=== PATIENT | male | born 1960 | race Caucasian/White ===

== ENCOUNTER 2016-08-04 03:10 | Emergency (ER) | payer BC, OTHER ==
[~2016-08-04 03:10] MED LIST: TRIAM.1%T TOPICAL
--- NOTE | 2016-08-04 03:39 | PD ---
HPI Chief Complaint: Alcohol intoxication Time Seen by Provider: 03:22 Travel History International Travel<30 days: No Contact w/Intl Traveler<30days: No History of Present Illness HPI 56yo M with PMH of hep C brought in by [facility] for alcohol intoxication and has a avulsion laceration above left eyebrow. Pt is answering questions and following commands but clinically intoxicated. Denies any complaints. Has abrasion on right knee. States he had recent tetanus. Moving all extremities. No focal neurologic deficits. PFSH Past Medical History Hx Anticoagulant Therapy: No Cancer: No Cardiovascular Problems: No Chemotherapy: No Cerebrovascular Accident: No Diabetes: No Diminished Hearing: No Endocrine: Yes Genitourinary: No Musculoskeletal: No Neurologic: No Psychiatric: No Reproductive: No Respiratory: No Thyroid Disease: Yes Past Surgical History Other Surgery: Yes (SINUS SURGERY) Social History Alcohol Use: Yes (FREQUENTLY ) Tobacco Use: Yes (1PPD) Substance Use: No Allergies-Medications (Allergen,Severity, Reaction): Coded Allergies: *MDRO Multi-Drug Resistant Organism (Verified Adverse Reaction, Unknown, ) MRSA (per H&P) MRSA PCR negative 02/02/2015 & 02/05/2015. Isolation D/C per Infection Control protocol Reported Meds & Prescriptions Reported Meds & Active Scripts Active Review of Systems Except as stated in HPI: all other systems reviewed are Neg Physical Exam Narrative GENERAL: 56yo M intoxicated. SKIN: Focused skin assessment warm/dry. HEAD: +4cm avulsion laceration above left eyebrow. EYES: Pupils equal and round at 4mm bilaterally. EOMI. ENT: No nasal bleeding or discharge. Mucous membranes pink and moist. NECK: Trachea midline. No JVD. CARDIOVASCULAR: Regular rate and rhythm. No murmur appreciated. RESPIRATORY: No accessory muscle use. Clear to auscultation. Breath sounds equal bilaterally. GASTROINTESTINAL: Abdomen soft, non-tender, nondistended. No rebound tenderness or guarding. MUSCULOSKELETAL: No obvious deformities. No clubbing. No cyanosis. No edema. NEUROLOGICAL: Awake and alert. No obvious cranial nerve deficits. Motor grossly within normal limits. Normal speech. Data Data Last Documented VS Vital Signs Date Time Temp Pulse Resp B/P Pulse Ox O2 Delivery O2 Flow Rate FiO2 08/04/16 08:11 92 18 134/79 98 Room Air 08/04/16 03:[address] Brain W/O Iv Contrast(Rout) (08/04/16 ) Knee, Ltd (1 Or 2vws) (08/04/16 ) Lidocaine 1% Inj (50 Ml) (Xylocaine 1% I (08/04/16 04:15) Acetaminophen (Tylenol) (08/04/16 06:15) MDM Medical Decision Making Medical Screen Exam Complete: Yes Emergency Medical Condition: Yes Interpretation(s) Last Impressions Knee X-Ray 08/04/16 0000 Signed Impressions: Service Date/Time: Thursday, August 04, 2016 03:25 - CONCLUSION: No acute right knee abnormality is identified. Germán Odom MD Head CT 08/04/16 0000 Signed Impressions: Service Date/Time: Thursday, August 04, 2016 03:44 - CONCLUSION: Mild left periorbital soft tissue swelling. No fracture or acute intracranial abnormality is identified. Germán Odom MD Differential Diagnosis Alcohol intoxication Narrative Course 56yo M with alcohol intoxication and left forearm laceration. Pt is answering questions and admits to drinking today. No focal neurologic deficits. CT brain showed mild left periorbital soft tissue swelling. No fracture or acute intracranial abnormality. Laceration repaired by my PA. Xray right knee showed no acute knee abnormality. Pt is medically clear to be discharge when ambulating in the ED without any assistance. Diagnosis Primary Impression: Head injury Qualified Code: S09.90XA - Head injury, initial encounter Patient Instructions: General Instructions Departure Forms: Tests/Procedures Additional Instructions: Please have sutures removed in 5 days. Please follow up with your PMD. Return to the ED if any signs of infection, headache, vomiting or any other concerning symptoms. Med/Other Pt SpecificInfo: No Change to Meds Disposition: 01 DISCHARGE HOME Condition: Stable Anabelle Pitts DO Aug 04, 2016 03:39
[2016-08-04 03:40] VITALS: BP 159/106; PULSE 97; RESP 18; TEMP 98.9; O2SAT 97
--- NOTE | 2016-08-04 04:05 | RADRPT ---
EXAM DATE/TIME: 08/04/2016 03:25 [facility] COMPARISON: No previous studies available for comparison. INDICATIONS : Possible knee trauma from a fall. MEDICAL HISTORY : None. SURGICAL HISTORY : None. ENCOUNTER: Initial ACUITY: 1 day PAIN SCORE: 10 LOCATION: Right Knee FINDINGS: Four views of the right knee demonstrate no fracture or dislocation. No joint effusion is present. Th ere is no significant arthropathy and mineralization is within normal limits. No soft tissue abnormal ity or radiopaque foreign body is identified. There is arterial vascular calcification. CONCLUSION: No acute right knee abnormality is identified. Germán Odom MD on August 04, 2016 at 4:03 Board Certified Radiologist. This report was verified electronically.
--- NOTE | 2016-08-04 04:13 | RADRPT ---
EXAM DATE/TIME: 08/04/2016 03:44 [facility] COMPARISON: No previous studies available for comparison. INDICATIONS : Trauma, fall. RADIATION DOSE: 56.35 CTDIvol (mGy) MEDICAL HISTORY : Non-responsive. SURGICAL HISTORY : Non-responsive. ENCOUNTER: Initial ACUITY: 1 day PAIN SCALE: Non-responsive LOCATION: cranial TECHNIQUE: Multiple contiguous axial images were obtained of the head. Using automated exposure control and adj ustment of the mA and/or kV according to patient size, radiation dose was kept as low as reasonably a chievable to obtain optimal diagnostic quality images. FINDINGS: CEREBRUM: The ventricles are normal. There is mild cerebral atrophy. No evidence of midline shift, mass lesion , hemorrhage or acute infarction. No extra-axial fluid collections are seen. POSTERIOR FOSSA: The cerebellum and brainstem demonstrate no acute finding. The 4th ventricle is midline. The cerebe llopontine angle is unremarkable. EXTRACRANIAL: There is left periorbital soft tissue swelling. SKULL: The calvaria is intact. No evidence of skull fracture. CONCLUSION: Mild left periorbital soft tissue swelling. No fracture or acute intracranial abnormality is identifi ed. Germán Odom MD on August 04, 2016 at 4:10 Board Certified Radiologist. This report was verified electronically.
[2016-08-04] MEDS ORDERED: LIDOCAINE HCL 1% 50 ML VIAL INFIL ONE (04:15)
--- NOTE | 2016-08-04 04:34 | PD ---
Physical Exam Exam Limitations: Intoxication Date Seen by Provider: Aug 04, 2016 Time Seen by Provider: 04:32 Narrative 4 cm laceration left eyebrow Data Data Last Documented VS Vital Signs Date Time Temp Pulse Resp B/P Pulse Ox O2 Delivery O2 Flow Rate FiO2 08/04/16 03:40 98.9 97 18 159/[address] Brain W/O Iv Contrast(Rout) (08/04/16 ) Knee, Ltd (1 Or 2vws) (08/04/16 ) Lidocaine 1% Inj (50 Ml) (Xylocaine 1% I (08/04/16 04:15) MDM Medical Record Reviewed: Yes Supervised Visit with MICHELLE: Yes Interpretation(s) Last 24 hours Impressions Knee X-Ray 08/04/16 0000 Signed Impressions: Service Date/Time: Thursday, August 04, 2016 03:25 - CONCLUSION: No acute right knee abnormality is identified. Germán Odom MD Head CT 08/04/16 0000 Signed Impressions: Service Date/Time: Thursday, August 04, 2016 03:44 - CONCLUSION: Mild left periorbital soft tissue swelling. No fracture or acute intracranial abnormality is identified. Germán Odom MD Differential Diagnosis MDM: High Differential diagnoses: Fracture, sprain, strain, dislocation, contusion, neurovascular injury Narrative Course Patient's facial lacerations closed with sutures. Procedures Procedure Narrative LACERATION LOCATION: Left eyebrow LENGTH: 4 cm NUMBER OF STITCHES/CARLITA: 7 REPAIR: The area of the laceration was prepped with Betadine and sterilely draped. The laceration was infiltrated with 1% lidocaine. The wound was copiously irrigated and explored without evidence of foreign body, tendon injury or neurovascular injury. The wound was closed using 5-0 nylon. This was a simple single layer repair. A sterile dressing was applied. The patient was advised to keep the dressing clean and dry. Patient tolerated the procedure well. Patient Instructions: General Instructions Additional Instruction: Rest. Ice pack tonight. Head precautions. Avoid alcohol. Tylenol or Advil for pain. Daily wound care with soap, water, Neosporin. Sutures out in 5 days. Sunscreen and mederma for 6 months. Return to the ER for any problems. Med/Other Pt SpecificInfo: Wound Care Disposition: 01 DISCHARGE HOME Condition: Stable Joseph Howard Aug 04, 2016 04:34
[2016-08-04] MEDS ORDERED: ACETAMINOPHEN 500 MG CPLT PO ONE (06:15)
[2016-08-04 08:11] VITALS: BP 134/79; PULSE 92; RESP 18; O2SAT 98
[2016-08-21] MEDS ORDERED: BACT800T5 PO (14:34)
[2016-09-06] MEDS ORDERED: TRIAPOW TOPICAL ×2 (14:52→15:15)
== END 2016-08-04 10:05 | disposition home or self-care (01) ==
LOC: NEPE 03:10
DX: S01.81XA Laceration without foreign body of other part of head, initial encounter (principal); F17.210 Nicotine dependence, cigarettes, uncomplicated; F10.120 Alcohol abuse with intoxication, uncomplicated; Y90.9 Presence of alcohol in blood, level not specified
CPT/HCPCS: 12013; 70450; 73560

== ENCOUNTER 2016-10-21 18:41 | Inpatient (IN) | payer BC, OTHER ==
[~2016-10-21] VITALS: Ht 180.3 cm; Wt 76.8 kg
[~2016-10-21 18:41] MED LIST changes: -TRIAM.1%T TOPICAL; +TRIAPOW TOPICAL
[2016-10-21 18:47] VITALS: BP 121/98; PULSE 108; RESP 18; O2SAT 97
[2016-10-21] MEDS ORDERED: SODIUM CHLOR 0.9% 1000 ML INJ 1,000 ML IV SCH ×2 (18:54→20:46)
--- NOTE | 2016-10-21 18:54 | PD ---
HPI Chief Complaint: GI Complaint Time Seen by Provider: 18:54 Travel History International Travel<30 days: No Contact w/Intl Traveler<30days: No Traveled to known affect area: No History of Present Illness HPI 56-year-old male with a history of pancreatitis, alcohol abuse, hypothyroidism is brought to the emergency department by EMS for evaluation of epigastric pain with nausea and vomiting. Per EMS [place] he is homeless. Patient states that this pain began several hours ago. States that it began while he was sitting at the bar drinking beer. States he has had multiple episodes of nonbloody nonbilious emesis today and multiple episodes of nonbloody diarrhea. He describes the pain as a sharp stabbing pain in his epigastric and lower sternum. Denies any fever, chills, shortness of breath, difficulty breathing, cough or cold symptoms , dysuria, swelling of extremities. Denies any prior abdominal surgeries. States that he has had pancreatitis in the past. Denies any history of heart disease or CT. States he has had 2 beers today. No other complaints. PFSH Past Medical History Hx Anticoagulant Therapy: No Cancer: No Cardiovascular Problems: No Chemotherapy: No Cerebrovascular Accident: No Diabetes: No Diminished Hearing: No Endocrine: Yes Gastrointestinal Disorders: Yes Genitourinary: No Musculoskeletal: No Neurologic: No Psychiatric: No Reproductive: No Respiratory: No Thyroid Disease: Yes Past Surgical History Genitourinary Surgery: Yes (VASECTOMY) Other Surgery: Yes (SINUS SURGERY) Social History Alcohol Use: Yes (FREQUENTLY ) Tobacco Use: Yes (1PPD) Substance Use: No Allergies-Medications (Allergen,Severity, Reaction): Coded Allergies: *MDRO Multi-Drug Resistant Organism (Verified Adverse Reaction, Unknown, ) MRSA (per H&P) MRSA PCR negative 02/02/2015 & 02/05/2015. MRSA (arm)-08/21/16 Reported Meds & Prescriptions Reported Meds & Active Scripts Active No Active Prescriptions or Reported Medications Review of Systems Except as stated in HPI: all other systems reviewed are Neg Physical Exam Narrative GENERAL: Disheveled male patient in moderate amount of pain but no acute distress. SKIN: Warm and dry. HEAD: Normocephalic and atraumatic. EYES: No injection, drainage, or hyphema noted. PERRLA. EOMI. ENT: No nasal drainage noted. Oropharynx is clear. NECK: Supple and the trachea is midline. CARDIOVASCULAR: Regular rate and rhythm. RESPIRATORY: Breath sounds are equal bilaterally with no accessory muscle use, wheezing, rhonchi, or crackles. GASTROINTESTINAL: Epigastric tenderness to palpation. Negative Young's sign. Negative McBurney's point. Abdomen is soft and nondistended. MUSCULOSKELETAL: No obvious deformities, swelling, cyanosis, or ecchymosis is present throughout the upper and lower extremities. Patient has full range of motion without any signs of neurovascular compromise. NEUROLOGICAL: Awake, alert, and oriented. Normal speech and gait. Cranial nerves are grossly intact. Data Data Last Documented VS Vital Signs Date Time Temp Pulse Resp B/P Pulse Ox O2 Delivery O2 Flow Rate FiO2 10/21/16 21:14 96 18 156/99 96 Room Air Orders Complete Blood Count With Diff (10/21/16 18:54) Comprehensive Metabolic Panel (10/21/16 18:54) Lipase (10/21/16 18:54) Prothrombin Time / Inr (Pt) (10/21/16 18:54) Act Partial Throm Time (Ptt) (10/21/16 18:54) Urinalysis - C+S If Indicated (10/21/16 18:54) Iv Access Insert/Monitor (10/21/16 18:54) Ecg Monitoring (10/21/16 18:54) Oximetry (10/21/16 18:54) Ondansetron Inj (Zofran Inj) (10/21/16 19:00) Sodium Chlor 0.9% 1000 Ml Inj (Ns 1000 M (10/21/16 18:54) Sodium Chloride 0.9% Flush (Ns Flush) (10/21/16 19:00) Electrocardiogram (10/21/16 18:54) Chest, Single Ap (10/21/16 18:54) Famotidine Inj (Pepcid Inj) (10/21/16 19:00) Ckmb (Isoenzyme) Profile (10/21/16 18:54) Troponin I (10/21/16 18:54) Alcohol (Ethanol) (10/21/16 18:54) Morphine Inj (Morphine Inj) (10/21/16 19:00) Ct Abd/Pel W Iv Contrast(Rout) (10/21/16 20:46) Sodium Chlor 0.9% 1000 Ml Inj (Ns 1000 M (10/21/16 20:46) Electrocardiogram (10/21/16 19:31) Iohexol 350 Inj (Omnipaque 350 Inj) (10/21/16 21:30) Morphine Inj (Morphine Inj) (10/21/16 22:15) Ondansetron Inj (Zofran Inj) (10/21/16 22:15) Piperacil-Tazo 4.5 Gm Premix (Zosyn 4.5 (10/21/16 22:30) Admit Order (Ed Use Only) (10/21/16 22:30) Piperacil-Tazo 4.5 Gm Premix (Zosyn 4.5 (10/22/16 05:00) Admit To Inpatient (10/21/16 ) Vital Signs (Adult) Q4H (10/21/16 22:33) Activity Oob Ad Enedina (10/21/16 22:33) Intake + Output RAYMOND.QSHIFT (10/21/16 22:33) Diet Clear Liquid (10/22/16 Breakfast) Sodium Chloride 0.9% Flush (Ns Flush) (10/21/16 22:45) Sodium Chloride 0.9% Flush (Ns Flush) (10/22/16 09:00) Ondansetron Inj (Zofran Inj) (10/21/16 22:45) Comprehensive Metabolic Panel (10/22/16 06:00) Complete Blood Count With Diff (10/22/16 06:00) Lipase (10/22/16 06:00) Scd Bilateral/Knee High RAYMOND.BID (10/21/16 22:33) Abdon Bilateral/Knee High RAYMOND.QSHIFT (10/21/16 22:33) Acetaminophen (Tylenol) (10/21/16 22:45) Morphine Inj (Morphine Inj) (10/21/16 22:45) Oxycodone (Roxicodone) (10/21/16 22:45) Docusate Sodium-Senna (Yoko-Colace) (10/22/16 09:00) Magnesium Hydroxide Liq (Milk Of Magnesi (10/21/16 22:45) Sennosides (Senokot) (10/21/16 22:45) Bisacodyl Supp (Dulcolax Supp) (10/21/16 22:45) Lactulose Liq (Lactulose Liq) (10/21/16 22:45) Inpatient Certification (10/21/16 ) Vital Signs (Adult) Q4H (10/21/16 22:33) Bedside Glucose RAYMOND.AC&HS (10/21/16 22:33) Intake + Output RAYMOND.QSHIFT (10/21/16 22:33) Alcohol Withdrawal Asmt-Ciwa Q4HX18 (10/21/16 22:33) ^ Seizure Precautions (10/21/16 22:33) Multivitamin Inj (Mvi-12 Inj)... (10/21/16 22:45) Thiamine Inj (Thiamine Inj) (10/21/16 22:45) Thiamine (Vit B1) (Vitamin B1) (10/25/16 09:00) Consult Cm-Etoh Abuse Dc Plan (10/21/16 ) Flumazenil Inj (Romazicon Inj) (10/21/16 22:45) Lorazepam (Ativan) (10/21/16 22:45) Lorazepam Inj (Ativan Inj) (10/21/16 22:45) Lorazepam (Ativan) (10/21/16 22:45) Lorazepam Inj (Ativan Inj) (10/21/16 22:45) Labs Laboratory Tests Test 10/21/16 10/21/16 19:01 19:15 White Blood Count 7.8 TH/MM3 Red Blood Count 4.14 MIL/MM3 Hemoglobin 14.1 GM/DL Hematocrit 39.3 % Mean Corpuscular Volume 94.7 FL Mean Corpuscular Hemoglobin 34.1 PG Mean Corpuscular Hemoglobin 36.0 % Concent Red Cell Distribution Width 15.9 % Platelet Count 160 TH/MM3 Mean Platelet Volume 6.4 FL Neutrophils (%) (Auto) 64.8 % Lymphocytes (%) (Auto) 19.2 % Monocytes (%) (Auto) 13.0 % Eosinophils (%) (Auto) 2.5 % Basophils (%) (Auto) 0.5 % Neutrophils # (Auto) 5.1 TH/MM3 Lymphocytes # (Auto) 1.5 TH/MM3 Monocytes # (Auto) 1.0 TH/MM3 Eosinophils # (Auto) 0.2 TH/MM3 Basophils # (Auto) 0.0 TH/MM3 CBC Comment AUTO DIFF Differential Total Cells 100 Counted Neutrophils % (Manual) 70 % Band Neutrophils % 8 % Lymphocytes % 15 % Monocytes % 4 % Eosinophils % 2 % Basophils % 1 % Neutrophils # (Manual) 6.1 TH/MM3 Nucleated Red Blood Cells 1 /100 WBC Differential Comment FINAL DIFF MANUAL Platelet Estimate NORMAL Platelet Morphology Comment NORMAL Red Cell Morphology Comment NORMAL Prothrombin Time 11.6 SEC Prothromb Time International 1.0 RATIO Ratio Activated Partial 26.6 SEC Thromboplast Time Sodium Level 135 MEQ/L Potassium Level 3.9 MEQ/L Chloride Level 101 MEQ/L Carbon Dioxide Level 21.1 MEQ/L Anion Gap 13 MEQ/L Blood Urea Nitrogen 6 MG/DL Creatinine 0.74 MG/DL Estimat Glomerular Filtration 110 ML/MIN Rate Random Glucose 77 MG/DL Calcium Level 8.9 MG/DL Total Bilirubin 0.9 MG/DL Aspartate Amino Transf 112 U/L (AST/SGOT) Alanine Aminotransferase 124 U/L (ALT/SGPT) Alkaline Phosphatase 60 U/L Total Creatine Kinase 75 U/L Troponin I LESS THAN 0.02 NG/ML Total Protein 8.2 GM/DL Albumin 3.7 GM/DL Lipase 665 U/L Ethyl Alcohol Level 324 MG/DL Urine Color LIGHT-YELLOW Urine Turbidity CLEAR Urine pH 5.0 Urine Specific [place] 1.003 Urine Protein NEG mg/dL Urine Glucose (UA) NEG mg/dL Urine Ketones NEG mg/dL Urine Occult Blood NEG Urine Nitrite NEG Urine Bilirubin NEG Urine Urobilinogen LESS THAN 2.0 MG/DL Urine Leukocyte Esterase NEG Microscopic Urinalysis Comment CULT NOT INDICATED MDM Medical Decision Making Medical Screen Exam Complete: Yes Emergency Medical Condition: Yes Differential Diagnosis Gastritis versus pancreatitis versus peptic ulcer disease versus alcohol intoxication versus chest wall pain versus ACS Narrative Course 56-year-old male is brought to the emergency department by EMS for evaluation of epigastric pain with nausea and vomiting. Patient is afebrile. He is slightly tachycardic with a heart rate of 108 bpm. Otherwise vital signs within normal limits. He has epigastric tenderness to palpation. He is a daily alcohol drinker. IV access was obtained, labs have been drawn and sent. Patient is placed on cardiac telemetry and pulse oximetry monitoring. Patient is administered IV fluids, Zofran, Pepcid and morphine. EKG shows normal sinus rhythm with no acute ST elevations or depressions. CBC is unremarkable with the exception of 8% band neutrophils. CMP shows elevated LFTs, likely secondary to chronic alcohol use. Troponin is less than 0.02. Lipases elevated at 665. Coags are unremarkable. EtOH 324. Urinalysis is unremarkable. Chest x-ray is unremarkable. CT of the abdomen and pelvis with IV contrast shows mild inflammatory changes involving the pancreatic head, second portion of the duodenum and the pancreaticoduodenal groove. These findings can be seen with groove pancreatitis or potentially duodenitis. Patient is covered empirically with Zosyn 4.5 g IV for possible infectious source with bandemia. Patient is still complaining of abdominal pain. He is given a second dose of pain medicine and antiemetics. He'll be admitted to medicine service for abdominal pain for acute pancreatitis and duodenitis. I discussed the case with my attending physician Dr. Pearson who is aware of the patients history, physical examination findings, and treatment plan. Physician Communication Physician Communication I spoke with Dr. Huerta [facility] who agrees to admit the patient to her service. Diagnosis Primary Impression: Alcoholic pancreatitis Qualified Code: K85.20 - Alcohol-induced acute pancreatitis, unspecified complication status Additional Impressions: Abdominal pain Qualified Code: R10.84 - Generalized abdominal pain Nausea & vomiting Qualified Code: R11.2 - Non-intractable vomiting with nausea, unspecified vomiting type Bandemia Admitting Information Admitting Physician Requests: Admit Scripts No Active Prescriptions or Reported Meds Lisa Luo Oct 21, 2016 18:54
[2016-10-21] MEDS ORDERED: MORPHINE SULFATE 4 MG/ML INJ IV PUSH ONE ×2 (19:00→22:15)
[2016-10-21] MEDS ORDERED: FAMOTIDINE 20 MG/2 ML VIAL IV PUSH ONE (19:00)
[2016-10-21] MEDS ORDERED: ONDANSETRON HCL 4 MG/2 ML VIAL IVP ONE (19:00)
[2016-10-21] MEDS ORDERED: SODIUM CHLORIDE 0.9% FLUSH 10 ML FLUSH IV FLUSH PRN (19:00)
[2016-10-21 19:18] VITALS: BP 120/88; PULSE 98; RESP 22; O2SAT 100
[2016-10-21 19:38] LABS: AUTOMATED NEUTROPHIL # 5.1 TH/MM3 (1.8-7.7); BASOPHIL % 0.5 % (0.0-2.0); EOSINOPHIL # 0.2 TH/MM3 (0-0.4); EOSINOPHIL % 2.5 % (0.0-4.0); HEMATOCRIT 39.3 % (39.0-51.0); LYMPH % 19.2 % (9.0-44.0); LYMPHOCYTE # 1.5 TH/MM3 (1.0-4.8); MEAN CELL VOLUME 94.7 FL (80.0-100.0); MEAN CORPUSCULAR HEMOGLOBIN 34.1 PG (27.0-34.0); NEUT % 64.8 % (16.0-70.0); PLATELET COUNT 160 TH/MM3 (150-450); RED BLOOD COUNT 4.14 MIL/MM3 (4.50-5.90); RED CELL DISTRIBUTION WIDTH 15.9 % (11.6-17.2); WHITE BLOOD COUNT 7.8 TH/MM3 (4.0-11.0)
[2016-10-21 19:39] LABS: HEMO FLAGS AUTO DIFF
--- NOTE | 2016-10-21 19:40 | RADRPT ---
EXAM DATE/TIME: 10/21/2016 19:10 [facility] COMPARISON: CHEST PA & LAT, January 27, 2015, 20:12. INDICATIONS : Lower Chest Pain MEDICAL HISTORY : None. SURGICAL HISTORY : None. ENCOUNTER: Initial ACUITY: 1 day PAIN SCORE: 10/10 LOCATION: Bilateral lower chest FINDINGS: Portable AP view of the chest demonstrates a normal-sized cardiac silhouette. No effusion, consolidat ion, or pneumothorax is visualized. The bones and soft tissues demonstrate no acute abnormality. Lung s are underinflated. CONCLUSION: No acute cardiopulmonary abnormality is identified. Germán Odom MD on October 21, 2016 at 19:38 Board Certified Radiologist. This report was verified electronically.
[2016-10-21 19:48] LABS: ALT (GPT) 124 U/L (12-78); ANION GAP 13 MEQ/L (5-15); AST (GOT) 112 U/L (15-37); BICARBONATE 21.1 MEQ/L (21.0-32.0); BLOOD UREA NITROGEN 6 MG/DL (7-18); CHLORIDE 101 MEQ/L (98-107); GLOMERULAR FILTRATION RATE 110 ML/MIN (>89); POTASSIUM 3.9 MEQ/L (3.5-5.1); SODIUM (NA) 135 MEQ/L (136-145)
[2016-10-21 19:50] LABS: APTT (PATIENT) 26.6 SEC (24.3-30.1); PROTHROMBIN TIME - PATIENT 11.6 SEC (9.8-11.6)
[2016-10-21 19:52] LABS: BLOOD, URINE NEG (NEG); COMMENT (UR) CULT NOT INDICATED; CULTURE IF INDICATED CULT NOT INDICATED; GLUCOSE,URINE NEG (NEG); KETONE, URINE NEG (NEG); NITRITE,URINE NEG (NEG); URINE COLOR LIGHT-YELLOW (YELLW/STRAW)
[2016-10-21 19:55] LABS: ALKALINE PHOSPHATASE 60 U/L (45-117); TOTAL BILIRUBIN ADULT 0.9 MG/DL (0.2-1.0)
[2016-10-21 19:59] LABS: CREATINE KINASE 75 U/L (39-308)
[2016-10-21 20:15] LABS: BANDS 8 % (0-6); BASOPHILS 1 % (0-2); CORRECTED NUCLEATED RBC 1 /100 WBC (0-0); EOSINOPHILS 2 % (0-4); NEUTROPHIL # MANUAL DIFF 6.1 TH/MM3 (1.8-7.7); PLATELET ESTIMATE SMEAR NORMAL (NORMAL); PLATELET MORPHOLOGY NORMAL (NORMAL); POLYS (SEG NEUTROPHILS) 70 % (16-70); SCAN/DIFF FINAL DIFF MANUAL; WBC DIFF SAMPLE 100
[2016-10-21 21:14] VITALS: BP 156/99; PULSE 96; RESP 18; O2SAT 96
[2016-10-21] MEDS ORDERED: IOHEXOL 350 MG/ML 10 ML VIAL (for RAD DIAG) IV ONE (21:30)
--- NOTE | 2016-10-21 22:03 | RADRPT ---
EXAM DATE/TIME: 10/21/2016 21:27 [facility] COMPARISON: No previous studies available for comparison. INDICATIONS : Epigastric pain with nausea and vomiting. ETOH. IV CONTRAST: 97 cc Omnipaque 350 (iohexol) IV ORAL CONTRAST: No oral contrast ingested. RADIATION DOSE: 9.96 CTDIvol (mGy) MEDICAL HISTORY : Pancreatitis. Thyroid disease. SURGICAL HISTORY : Sinus surgery. ENCOUNTER: Initial ACUITY: 1 day PAIN SCALE: 8/10 LOCATION: epigastric TECHNIQUE: Volumetric scanning of the abdomen and pelvis was performed. Using automated exposure control and ad justment of the mA and/or kV according to patient size, radiation dose was kept as low as reasonably achievable to obtain optimal diagnostic quality images. FINDINGS: LOWER LUNGS: The visualized lower lungs are clear. LIVER: Homogeneous density without lesion. There is no dilation of the biliary tree. No calcified gallston es. SPLEEN: Normal size without lesion. PANCREAS: There is mild stranding of the fat between the second portion of the duodenum and pancreatic head. No pancreatic mass, duct dilatation, or atrophy is present. There are no pancreatic calcifications. KIDNEYS: Normal in size and shape. There is no mass, stone or hydronephrosis. ADRENAL GLANDS: Within normal limits. VASCULAR: There is no aortic aneurysm. There is mild atherosclerotic disease. BOWEL/MESENTERY: The stomach, small bowel, and colon demonstrate no acute abnormality. There is no free intraperitone al air or fluid. Mild inflammatory change adjacent to the second portion of the duodenum. No wall thi ckening is present. ABDOMINAL WALL: Within normal limits. RETROPERITONEUM: There is no lymphadenopathy. BLADDER: No wall thickening or mass. REPRODUCTIVE: Within normal limits. INGUINAL: There is no lymphadenopathy or hernia. 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 No acute abnormality is seen. CONCLUSION: Mild inflammatory changes involving the pancreatic head, second portion the duodenum, and the pancrea ticoduodenal groove. These findings can be seen with groove pancreatitis or potentially duodenitis. Germán Odom MD on October 21, 2016 at 21:57 Board Certified Radiologist. This report was verified electronically.
[2016-10-21] MEDS ORDERED: ONDANSETRON HCL 4 MG/2 ML VIAL IV PUSH ONE (22:15)
[2016-10-21] MEDS ORDERED: PIPERACIL-TAZO 4.5 GM PREMIX 100 ML IV ONE (22:30)
--- NOTE | 2016-10-21 22:37 | HHI.HP ---
HPI Service [facility] Primary Care Physician No Primary Care Physician Admission Diagnosis Acute Alcoholic Pancreatitis and Duodenitis Diagnoses: (1) Pancreatitis Diagnosis: Principal (2) Duodenitis Diagnosis: Principal (3) Alcohol abuse Diagnosis: Principal (4) Bandemia Diagnosis: Principal Travel History International Travel<30 Days: No Contact w/Intl Traveler <30 Da: No Traveled to Known Affected Are: No History of Present Illness This is a 56-year-old male with a PMH of Alcohol Abuse and Tobacco Abuse who was brought to the ER by EMS secondary to complaints of severe epigastric pain in addition to nausea and vomiting. Per patient he was drinking at a bar when he had acute onset of epigastric pain in addition to multiple episodes of nausea and vomiting. Denies hematemesis. No reported fever, chills or diarrhea. On arrival, BP 121/98, HR 108, O2 sat 97% on RA, Afebrile. CBC essentially unremarkable except for bandemia of 8%. Chemistry essentially unremarkable except for elevated LFTs elevated in comparison to previous labs from 02/08/15. He 5. Troponin negative. INR 1.0. UA negative. Alcohol 324. CXR with no acute findings. S/p Zosyn in ER. Review of Systems Except as stated in HPI: all other systems reviewed are Neg ROS: 14 point review of systems otherwise negative. Past Family Social History Past Medical History PMH: Alcohol Abuse and Tobacco Abuse Past Surgical History PAST SURGICAL HISTORY: Vasectomy, Sinus Surgery Allergies: Coded Allergies: *MDRO Multi-Drug Resistant Organism (Verified Adverse Reaction, Unknown, ) MRSA (per H&P) MRSA PCR negative 02/02/2015 & 02/05/2015. MRSA (arm)-08/21/16 Family History PAST FAMILY HISTORY: Reviewed. No h/o DM or CAD Social History PAST SOCIAL HISTORY: + Alcohol Abuse. Smokes 1ppd. Negative for drugs. Physical Exam Vital Signs Vital Signs Date Time Temp Pulse Resp B/P Pulse Ox O2 Delivery O2 Flow Rate FiO2 10/21/16 21:14 96 18 156/99 96 Room Air 6/18/17 19:18 98 22 120/88 100 Room Air 10/21/16 18:50 18 10/21/16 18:47 108 18 121/98 97 Physical Exam PE: GENERAL: Middle-aged white male in no acute distress, acutely intoxicated, disheveled. HEENT: PERRLA, EOMI. No scleral icterus or conjunctival pallor. No lid lag or facial droop. CARDIOVASCULAR: Regular rate and rhythm. No obvious murmurs to auscultation. No chest tenderness to palpation. RESPIRATORY: No obvious rhonchi or wheezing. Clear to auscultation. Breath sounds equal bilaterally. GASTROINTESTINAL: Abdomen soft, mild epigastric tenderness to palpation, nondistended. BS normal. MUSCULOSKELETAL: Extremities without clubbing, cyanosis, or edema. No obvious deformities. NEUROLOGICAL: Awake, alert and oriented x4. No focal neurologic deficits. Moving both upper and lower extremities spontaneously. Laboratory Laboratory Tests Test 10/21/16 10/21/16 19:01 19:15 White Blood Count 7.8 Red Blood Count 4.14 Hemoglobin 14.1 Hematocrit 39.3 Mean Corpuscular Volume 94.7 Mean Corpuscular Hemoglobin 34.1 Mean Corpuscular Hemoglobin 36.0 Concent Red Cell Distribution Width 15.9 Platelet Count 160 Mean Platelet Volume 6.4 Neutrophils (%) (Auto) 64.8 Lymphocytes (%) (Auto) 19.2 Monocytes (%) (Auto) 13.0 Eosinophils (%) (Auto) 2.5 Basophils (%) (Auto) 0.5 Neutrophils # (Auto) 5.1 Lymphocytes # (Auto) 1.5 Monocytes # (Auto) 1.0 Eosinophils # (Auto) 0.2 Basophils # (Auto) 0.0 CBC Comment AUTO DIFF Differential Total Cells 100 Counted Neutrophils % (Manual) 70 Band Neutrophils % 8 Lymphocytes % 15 Monocytes % 4 Eosinophils % 2 Basophils % 1 Neutrophils # (Manual) 6.1 Nucleated Red Blood Cells 1 Differential Comment FINAL DIFF MANUAL Platelet Estimate NORMAL Platelet Morphology Comment NORMAL Red Cell Morphology Comment NORMAL Prothrombin Time 11.6 Prothromb Time International 1.0 Ratio Activated Partial 26.6 Thromboplast Time Sodium Level 135 Potassium Level 3.9 Chloride Level 101 Carbon Dioxide Level 21.1 Anion Gap 13 Blood Urea Nitrogen 6 Creatinine 0.74 Estimat Glomerular Filtration 110 Rate Random Glucose 77 Calcium Level 8.9 Total Bilirubin 0.9 Aspartate Amino Transf 112 (AST/SGOT) Alanine Aminotransferase 124 (ALT/SGPT) Alkaline Phosphatase 60 Total Creatine Kinase 75 Troponin I LESS THAN 0.02 Total Protein 8.2 Albumin 3.7 Lipase 665 Ethyl Alcohol Level 324 Urine Color LIGHT-YELLOW Urine Turbidity CLEAR Urine pH 5.0 Urine Specific [place] 1.003 Urine Protein NEG Urine Glucose (UA) NEG Urine Ketones NEG Urine Occult Blood NEG Urine Nitrite NEG Urine Bilirubin NEG Urine Urobilinogen LESS THAN 2.0 Urine Leukocyte Esterase NEG Microscopic Urinalysis Comment CULT NOT INDICATED Result Diagram: 10/21/16190010/21/161900 Assessment and Plan Problem List: (1) Pancreatitis ICD Code: K85.90 Status: Acute (2) Duodenitis ICD Code: K29.80 Status: Acute (3) Bandemia ICD Code: D72.825 Status: Acute (4) Alcohol abuse ICD Code: F10.10 Status: Acute Assessment and Plan A/P: 1. Pancreatitis: Alcoholic Pancreatitis. Lipase 665. CT Abd/Pelvis w/ mild inflammatory changes involving pancreatic head, second portion of duodenum and pancreaticoduodenal groove, images reviewed by me. IVF, Clear liquids, advance diet as tolerated, analgesics/antiemetics. 2. Duodenitis: CT Abd/Pelvis w/ above findings, images reviewed by me. Treatment as above. S/p Zosyn IV, will continue w/ IV Abx. 3. Bandemia: Bands 8, afebrile, no leukocytosis. Continue w/ IV Abx as above. Repeat labs in am. 4. Alcohol Abuse: w/ Acute Alcohol Intoxication. Alcohol 324. CIWA, Seizure Precautions, MVT/Thiamine/Folate replacement. 5. DVT Prophylaxis: SCD/Teds. 6. Social work for d/c planning as needed. 7. Case discussed w/ ER physician at length Physician Certification 2 Midnight Certification Type: Admission for Inpatient Services Order for Inpatient Services The services are ordered in accordance with Medicare regulations or non- Medicare payer requirements, as applicable. In the case of services not specified as inpatient-only, they are appropriately provided as inpatient services in accordance with the 2-midnight benchmark. Estimated LOS (days): 2 days is the estimated time the patient will need to remain in the hospital, assuming treatment plan goals are met and no additional complications. Post-Hospital Plan: Home Armida Huerta MD Oct 21, 2016 22:37
[2016-10-21] MEDS ORDERED: LORazepam 2 MG/ML VIAL IV PUSH PRN ×3 (22:45)
[2016-10-21] MEDS ORDERED: FLUMAZENIL 0.5 MG/5 ML VIAL IV PUSH PRN (22:45)
[2016-10-21] MEDS ORDERED: HALOPERIDOL LACTATE 5 MG/ML AMP IM PRN (22:45)
[2016-10-21] MEDS ORDERED: ONDANSETRON HCL 4 MG/2 ML VIAL IVP PRN (22:45)
[2016-10-21] MEDS ORDERED: LORazepam 2 MG TAB PO PRN (22:45)
[2016-10-21] MEDS ORDERED: BISACODYL 10 MG SUPP RECTAL PRN (22:45)
[2016-10-21] MEDS ORDERED: LACTULOSE SYRUP 20 GM/30 ML CUP PO PRN (22:45)
[2016-10-21] MEDS ORDERED: LORazepam 1 MG TAB PO PRN (22:45)
[2016-10-21] MEDS ORDERED: SENNOSIDES 8.6 MG TAB PO PRN (22:45)
[2016-10-21] MEDS ORDERED: ACETAMINOPHEN 325 MG TAB PO PRN (22:45)
[2016-10-21] MEDS: THIAMINE INJ 100 MG in SODIUM CHLORIDE 0.9% INJ 100 ML IV SCH (23:23)
[2016-10-21] MEDS: MULTIVITAMIN INJ 10 ML, FOLIC ACID INJ 1 MG in SODIUM CHLORID 0.9% 500 ML INJ 500 ML IV SCH (23:23)
[2016-10-21 23:26] VITALS: BP 128/76; PULSE 87; RESP 18; O2SAT 98
[2016-10-22] VITALS (7 sets, daily range): BP systolic 117–166; BP diastolic 58–109; PULSE 65–89; RESP 17–20; TEMP 96.3–98.6; O2SAT 95–99
[2016-10-22] MEDS: MORPHINE SULFATE 4 MG/ML INJ IV PRN ×6 (01:38→21:44)
[2016-10-22] MEDS: SODIUM CHLORIDE 0.9% FLUSH 10 ML FLUSH IV FLUSH PRN (04:35)
[2016-10-22] MEDS: PIPERACIL-TAZO 4.5 GM PREMIX 100 ML IV SCH ×4 (05:13→22:44)
[2016-10-22 07:29] LABS: AUTOMATED NEUTROPHIL # 2.1 TH/MM3 (1.8-7.7); EOSINOPHIL # 0.1 TH/MM3 (0-0.4); EOSINOPHIL % 2.9 % (0.0-4.0); HEMATOCRIT 36.3 % (39.0-51.0); HEMO FLAGS DIFF FINAL; LYMPH % 19.4 % (9.0-44.0); LYMPHOCYTE # 0.6 TH/MM3 (1.0-4.8); MEAN CELL VOLUME 95.7 FL (80.0-100.0); MEAN CORPUSCULAR HEMOGLOBIN 32.7 PG (27.0-34.0); MEAN CORPUSCULAR HGB CONC 34.2 % (32.0-36.0); MONO % 15.2 % (0.0-8.0); NEUT % 61.5 % (16.0-70.0); PLATELET COUNT 106 TH/MM3 (150-450); WHITE BLOOD COUNT 3.3 TH/MM3 (4.0-11.0)
[2016-10-22 07:57] LABS: ALT (GPT) 101 U/L (12-78); ANION GAP 10 MEQ/L (5-15); AST (GOT) 84 U/L (15-37); BICARBONATE 24.7 MEQ/L (21.0-32.0); BLOOD UREA NITROGEN 5 MG/DL (7-18); CHLORIDE 102 MEQ/L (98-107); GLOMERULAR FILTRATION RATE 110 ML/MIN (>89); POTASSIUM 3.7 MEQ/L (3.5-5.1); SODIUM (NA) 137 MEQ/L (136-145)
[2016-10-22 07:59] LABS: ALKALINE PHOSPHATASE 55 U/L (45-117)
[2016-10-22] MEDS: SODIUM CHLORIDE 0.9% FLUSH 10 ML FLUSH IV FLUSH SCH ×2 (08:54→21:44)
[2016-10-22] MEDS: DOCUSATE SODIUM 50 MG/SENNA 8.6 MG TAB PO SCH ×2 (08:54→21:44)
--- NOTE | 2016-10-22 09:10 | HHI.PR ---
Subjective Remarks in no acute distress. but complaining of moderate to severe epigastric pain along with some nausea. no emesis or fever. Objective Vitals Vital Signs Date Time Temp Pulse Resp B/P Pulse Ox O2 Delivery O2 Flow Rate FiO2 10/22/16 07:50 96.4 73 20 155/100 96 10/22/16 04:30 97.1 89 20 156/95 96 10/22/16 02:03 79 136/99 10/22/16 01:00 96.3 80 17 142/99 99 10/21/16 23:26 87 18 128/76 98 Room Air 10/21/16 21:14 96 18 156/99 96 Room Air 10/21/16 19:18 98 22 120/88 100 Room Air 10/21/16 18:50 18 10/21/16 18:47 108 18 121/98 97 I/O 10/21/16 10/21/16 10/21/16 10/22/16 10/22/16 10/22/16 07:00 15:00 23:00 07:00 15:00 23:00 Intake Total 1200 ml Output Total 600 ml Balance 600 ml Intake Oral 480 ml IV Total 720 ml Output Urine Total 600 ml # Voids 0 # Bowel Movements 0 Result Diagram: 10/22/16 0641 10/22/16 0641 Imaging Last Impressions Abdomen/Pelvis CT 10/21/166 Signed Impressions: Service Date/Time: Friday, October 21, 2016 21:27 - CONCLUSION: Mild inflammatory changes involving the pancreatic head, second portion the duodenum, and the pancreaticoduodenal groove. These findings can be seen with groove pancreatitis or potentially duodenitis. Germán Odom MD Chest X-Ray 10/21/16 3742 Signed Impressions: Service Date/Time: Friday, October 21, 2016 19:10 - CONCLUSION: No acute cardiopulmonary abnormality is identified. Germán Odom MD Objective Remarks GENERAL: This is a well-nourished, well-developed patient, in no apparent distress. CARDIOVASCULAR: Regular rate and regular rhythm without murmurs, gallops, or rubs. RESPIRATORY: Clear to auscultation. Breath sounds equal bilaterally. No wheezes , rales, or rhonchi. GASTROINTESTINAL: Abdomen soft, epigastric tenderness, nondistended. Normal, active bowel sounds MUSCULOSKELETAL: Extremities without clubbing, cyanosis, or edema. NEURO: Alert & Oriented x4 to person, place, time, situation. Moves all ext x4 Procedures none Medications and IVs Current Medications Ondansetron HCl 4 mg 4 mg ONCE ONCE IVP Last administered on 10/21/16 19:17; Start 10/21/16 at 19:00; Stop 10/21/16 at 19:01; Status DC Sodium Chloride (NS 1000 ml Inj) 1,000 ml @ 1,000 mls/hr Q1H IV Last administered on 10/21/16 19:16; Start 10/21/16 at 18:54; Stop 10/21/16 at 19:53 ; Status DC Sodium Chloride (NS Flush) 2 ml UNSCH PRN IV FLUSH FLUSH AFTER USING IV ACCESS ; Start 10/21/16 at 19:00; Stop 10/21/16 at 22:38; Status DC Famotidine (Pepcid Inj) 20 mg ONCE ONCE IV PUSH Last administered on 19:16; Start 10/21/16 at 19:00; Stop 10/21/16 at 19:01; Status DC Morphine Sulfate 2 mg 2 mg ONCE ONCE IV PUSH Last administered on 10/21/16 19 :16; Start 10/21/16 at 19:00; Stop 10/21/16 at 19:02; Status DC Sodium Chloride (NS 1000 ml Inj) 1,000 ml @ 1,000 mls/hr Q1H IV Last administered on 10/21/16 20:52; Start 10/21/16 at 20:46; Stop 10/21/16 at 21:45 ; Status DC Iohexol (Omnipaque 350 Inj) 97 ml STK-MED ONCE IV Last administered on 21:30; Start 10/21/16 at 21:30; Stop 10/21/16 at 21:31; Status DC Morphine Sulfate (Morphine Inj) 4 mg ONCE ONCE IV PUSH Last administered on 22:40; Start 10/21/16 at 22:15; Stop 10/21/16 at 22:16; Status DC Ondansetron HCl 4 mg 4 mg ONCE ONCE IV PUSH Last administered on 10/21/16 22: 41; Start 10/21/16 at 22:15; Stop 10/21/16 at 22:16; Status DC Piperacillin Sod/ Tazobactam Sod 100 ml @ 200 mls/hr ONCE ONCE IV Last administered on 10/21/16 22:38; Start 10/21/16 at 22:30; Stop 10/21/16 at 22:59 ; Status DC Piperacillin Sod/ Tazobactam Sod (Zosyn 4.5 Gm Premix) 100 ml @ 200 mls/hr Q6H IV Last administered on 10/22/16 05:13; Start 10/22/16 at 05:00 Sodium Chloride (NS Flush) 2 ml UNSCH PRN IV FLUSH FLUSH AFTER USING IV ACCESS Last administered on 10/22/16 04:35; Start 10/21/16 at 22:45 Sodium Chloride (NS Flush) 2 ml BID IV FLUSH Last administered on 10/22/16 08: 54; Start 10/22/16 at 09:00 Ondansetron HCl (Zofran Inj) 4 mg Q6H PRN IVP NAUSEA OR VOMITING; Start at 22:45 Acetaminophen (Tylenol) 650 mg Q6H PRN PO FEVER; Start 10/21/16 at 22:45 Morphine Sulfate (Morphine Inj) 2 mg Q3H PRN IV Pain 6-10 Last administered on 10/22/16 08:53; Start 10/21/16 at 22:45 Oxycodone HCl (Roxicodone) 5 mg Q4H PRN PO PAIN SCALE 3 TO 5; Start 10/21/16 at 22:45 Senna/Docusate Sodium (Yoko-Colace) 1 tab BID PO Last administered on 08:54; Start 10/22/16 at 09:00 Magnesium Hydroxide (Milk Of Magnesia Liq) 30 ml Q12H PRN PO MILD - MODERATE CONSTIPATION; Start 10/21/16 at 22:45 Sennosides (Senokot) 17.2 mg Q12H PRN PO MODERATE - SEVERE CONSTIPATION; Start 10/21/16 at 22:45 Bisacodyl (Dulcolax Supp) 10 mg DAILY PRN RECTAL SEVERE CONSITIPATION; Start at 22:45 Lactulose 30 ml 30 ml DAILY PRN PO SEVERE CONSITIPATION; Start 10/21/16 at 22: 45 Multivitamins 10 ml/Folic Acid 1 mg/Sodium Chloride 510.2 ml @ 125 mls/hr Q24H IV Last administered on 10/21/16t 23:23; Start 10/21/16 at 23:00; Stop at 22:59 Thiamine HCl/ Sodium Chloride (Thiamine Inj/NS Inj) 101 ml @ 100 mls/hr Q24H IV Last administered on 10/21/16t 23:23; Start 10/21/16 at 23:00; Stop at 22:59 Thiamine HCl (Vitamin B1) 100 mg DAILY PO ; Start 10/25/16 at 09:00 Flumazenil (Romazicon Inj) 0.2 mg Q1M PRN IV PUSH SEE LABEL COMMENTS; Start at 22:45 Lorazepam (Ativan) 1 mg Q4H PRN PO CIWA 8 - 10; Start 10/21/16 at 22:45 Lorazepam (Ativan Inj) 1 mg Q4H PRN IV PUSH CIWA 8 - 10; Start 10/21/16 at 22: 45 Lorazepam (Ativan) 2 mg Q2H PRN PO CIWA 11-14; Start 10/21/16 at 22:45 Lorazepam (Ativan Inj) 2 mg Q2H PRN IV PUSH CIWA 11-14; Start 10/21/16 at 22:45 Lorazepam (Ativan Inj) 2 mg Q1H PRN IV PUSH CIWA 15-20; Start 10/21/16 at 22:45 Lorazepam (Ativan Inj) 2 mg Q15M PRN IV PUSH CIWA > 20; Start 10/21/16 at 22:45 Haloperidol Lactate (Haldol Inj) 2 mg Q15M PRN IM SEE LABEL COMMENTS; Start at 22:45 Pneumococcal Polyvalent Vaccine (Pneumovax-23 Inj) 25 mcg ONCE ONCE IM ; Start 10/23/16 at 10:00; Stop 10/23/16 at 10:01 A/P Assessment and Plan A/P 1. Pancreatitis: Alcoholic Pancreatitis. CT Abd/Pelvis w/ mild inflammatory changes involving pancreatic head, second portion of duodenum and pancreaticoduodenal groove. IVF, Clear liquids, advance diet as tolerated, analgesics; will increase oxycodone- analgesics as needed. 2. Duodenitis: CT Abd/Pelvis w/ above findings,. Treatment as above. consult GI. 3. Bandemia: Bands 8, afebrile, no leukocytosis. Continue w/ IV Abx as above. Repeat labs in am. 4. Alcohol Abuse: w/ Acute Alcohol Intoxication. Alcohol 324. CIWA, Seizure Precautions, MVT/Thiamine/Folate replacement. 5. DVT Prophylaxis: SCD/Teds. Toney Shelley MD Oct 22, 2016 09:10
--- NOTE | 2016-10-22 13:33 | MB ---
cc: ANÍBAL GODFREY MOHAMMADREZA MD DATE OF CONSULTATION: 10/22/2016 REASON FOR CONSULTATION Acute pancreatitis. HISTORY OF PRESENT ILLNESS The patient is a 56-year-old male with a history of alcohol abuse who developed the sudden onset of epigastric pain that was severe and boring. It lasted for many hours and he came to the emergency room. He reports some associated nausea with vomiting. Denies any hematemesis. He reports that the pain was very similar to previous pancreatic pain that he has had in the past. Approximately five years ago he had upper and lower endoscopy plus additional testing to demonstrate he had pancreatic cysts. Since that time he had cut back on his drinking but he has restarted drinking a fair amount. PAST MEDICAL HISTORY Positive for vasectomy and sinus surgery but no abdominal surgeries. FAMILY HISTORY Negative for pancreatitis or liver cancer. SOCIAL HISTORY He smokes as well as drinks alcoholic beverages. He admits to marijuana but no other hard drugs. REVIEW OF SYSTEMS Denies any headache, earache, sore throat. Denies any chest pain, shortness of breath. Denies any diarrhea, blood in the stool melena. He does admit to passing gas currently. Denies any arm or leg pain. Denies neurologic pain. Otherwise, a complete review of systems is negative. PHYSICAL EXAMINATION GENERAL: He is a well-developed, well-nourished white male in no apparent distress. He is alert and oriented x3. Mood is normal and appropriate. HEENT: No jaundice. HEART: Heart sounds are normal. LUNGS: Respirations are normal with lung sounds clear to auscultation. ABDOMEN: Tender with some voluntary guarding. Bowel sounds are quiet. EXTREMITIES: Without clubbing, cyanosis or edema. NEUROLOGIC: Grossly normal. PSYCHIATRIC: Mood is normal and appropriate. SKIN: Without rashes and without jaundice. LABORATORY DATA White blood cell count 7000, hematocrit 39%, platelet count 160,000. Creatinine 0.74, AST 112, ALT 124, alkaline phosphatase 60. IMAGING DATA CT scan shows some edematous pancreatitis involving mostly the head. CT scan images were reviewed personally on the computer. IMPRESSION 1. Acute pancreatitis. 2. Alcohol abuse, acute and chronic. 3. Abnormal liver enzymes. RECOMMENDATIONS 1. Limit clear liquids to sips of water and [place] until the pain resolves. 2. Once his pain is resolved he may increase his diet. 3. Work-up liver enzyme elevation with hepatitis profile. Thank you for this consultation. Aníbal Godfrey MD [facility]/BT /1:17 PM /1:26 PM
--- NOTE | 2016-10-22 16:28 | EKG ---
Date Performed: 10/21/2016 Time Performed: 19:12:47 PTAGE: 56 years EKG: Sinus rhythm POSSIBLE LEFT ATRIAL ENLARGEMENT J point elevation. Since previous tracing, no significant change no theron BORDERLINE ECG PREVIOUS TRACING : 01/27/2015 17.50.38 DOCTOR: Christiano Jacob Interpretating Date/Time 10/22/2016 16:27:48
--- NOTE | 2016-10-22 16:30 | EKG ---
Date Performed: 10/21/2016 Time Performed: 19:31:54 PTAGE: 56 years EKG: Sinus rhythm Since previous tracing, no significant change noted NORMAL ECG PREVIOUS TRACING : 10/21/2016 19.12.47 DOCTOR: Christiano Jacob Interpretating Date/Time 10/22/2016 16:30:10
[2016-10-22] MEDS: THIAMINE INJ 100 MG in SODIUM CHLORIDE 0.9% INJ 100 ML IV SCH (23:31)
[2016-10-22] MEDS: MULTIVITAMIN INJ 10 ML, FOLIC ACID INJ 1 MG in SODIUM CHLORID 0.9% 500 ML INJ 500 ML IV SCH (23:31)
[2016-10-23] VITALS: BP 166/106; PULSE 73; RESP 18; TEMP 97.3; O2SAT 94
[2016-10-23] MEDS: MORPHINE SULFATE 4 MG/ML INJ IV PRN ×2 (00:45→03:51)
[2016-10-23 04:00] VITALS: BP 162/101; PULSE 78; RESP 18; TEMP 97.4; O2SAT 94
[2016-10-23] MEDS: PIPERACIL-TAZO 4.5 GM PREMIX 100 ML IV SCH ×4 (04:38→22:01)
[2016-10-23 07:02] LABS: AUTOMATED NEUTROPHIL # 2.9 TH/MM3 (1.8-7.7); BASOPHIL % 0.7 % (0.0-2.0); EOSINOPHIL # 0.2 TH/MM3 (0-0.4); EOSINOPHIL % 3.7 % (0.0-4.0); HEMO FLAGS DIFF FINAL; LYMPH % 15.4 % (9.0-44.0); LYMPHOCYTE # 0.7 TH/MM3 (1.0-4.8); MEAN CELL VOLUME 95.1 FL (80.0-100.0); MEAN CORPUSCULAR HEMOGLOBIN 33.4 PG (27.0-34.0); MEAN CORPUSCULAR HGB CONC 35.1 % (32.0-36.0); MONO % 14.1 % (0.0-8.0); NEUT % 66.1 % (16.0-70.0); PLATELET COUNT 119 TH/MM3 (150-450); RED BLOOD COUNT 3.79 MIL/MM3 (4.50-5.90); RED CELL DISTRIBUTION WIDTH 15.3 % (11.6-17.2); WHITE BLOOD COUNT 4.4 TH/MM3 (4.0-11.0)
--- NOTE | 2016-10-23 07:58 | HHI.PR ---
Subjective Remarks in no acute distress. still with moderate to severe epigastric pain. no nausea or vomiting. afebrile. Objective Vitals Vital Signs Date Time Temp Pulse Resp B/P Pulse Ox O2 Delivery O2 Flow Rate FiO2 10/23/16 04:00 97.4 78 18 162/101 94 10/23/16 00:00 97.3 73 18 166/106 94 10/22/16 20:00 97.3 65 18 137/96 96 10/22/16 15:50 97.2 70 20 166/109 95 10/22/16 11:50 96.3 66 20 166/101 96 I/O 10/22/16 10/22/16 10/22/16 10/23/16 10/23/16 10/23/16 07:00 15:00 23:00 07:00 15:00 23:00 Intake Total 1200 ml 742 ml 800 ml 600 ml Output Total 600 ml 1900 ml 400 ml 1000 ml Balance 600 ml -1158 ml 400 ml -400 ml Intake Oral 480 ml 742 ml 800 ml 600 ml IV Total 720 ml Output Urine Total 600 ml 1900 ml 400 ml 1000 ml # Voids 0 # Bowel Movements 0 0 Result Diagram: 10/23/16 0635 10/22/16 0641 Imaging Last Impressions Abdomen/Pelvis CT 10/21/162045 Signed Impressions: Service Date/Time: Friday, October 21, 2016 21:27 - CONCLUSION: Mild inflammatory changes involving the pancreatic head, second portion the duodenum, and the pancreaticoduodenal groove. These findings can be seen with groove pancreatitis or potentially duodenitis. Germán Odom MD Chest X-Ray 10/21/16 [id number] Signed Impressions: Service Date/Time: Friday, October 21, 2016 19:10 - CONCLUSION: No acute cardiopulmonary abnormality is identified. Germán Odom MD Objective Remarks GENERAL: This is a well-nourished, well-developed patient, in no apparent distress. CARDIOVASCULAR: Regular rate and regular rhythm without murmurs, gallops, or rubs. RESPIRATORY: Clear to auscultation. Breath sounds equal bilaterally. No wheezes , rales, or rhonchi. GASTROINTESTINAL: Abdomen soft, epigastric tenderness, nondistended. Normal, active bowel sounds MUSCULOSKELETAL: Extremities without clubbing, cyanosis, or edema. NEURO: Alert & Oriented x4 to person, place, time, situation. Moves all ext x4 Procedures none Medications and IVs Current Medications Ondansetron HCl 4 mg 4 mg ONCE ONCE IVP Last administered on 10/21/16 19:17; Start 10/21/16 at 19:00; Stop 10/21/16 at 19:01; Status DC Sodium Chloride (NS 1000 ml Inj) 1,000 ml @ 1,000 mls/hr Q1H IV Last administered on 10/21/16 19:16; Start 10/21/16 at 18:54; Stop 10/21/16 at 19:53 ; Status DC Sodium Chloride (NS Flush) 2 ml UNSCH PRN IV FLUSH FLUSH AFTER USING IV ACCESS ; Start 10/21/16 at 19:00; Stop 10/21/16 at 22:38; Status DC Famotidine (Pepcid Inj) 20 mg ONCE ONCE IV PUSH Last administered on 19:16; Start 10/21/16 at 19:00; Stop 10/21/16 at 19:01; Status DC Morphine Sulfate 2 mg 2 mg ONCE ONCE IV PUSH Last administered on 10/21/16 19 :16; Start 10/21/16 at 19:00; Stop 10/21/16 at 19:02; Status DC Sodium Chloride (NS 1000 ml Inj) 1,000 ml @ 1,000 mls/hr Q1H IV Last administered on 10/21/16 20:52; Start 10/21/16 at 20:46; Stop 10/21/16 at 21:45 ; Status DC Iohexol (Omnipaque 350 Inj) 97 ml STK-MED ONCE IV Last administered on 21:30; Start 10/21/16 at 21:30; Stop 10/21/16 at 21:31; Status DC Morphine Sulfate (Morphine Inj) 4 mg ONCE ONCE IV PUSH Last administered on 22:40; Start 10/21/16 at 22:15; Stop 10/21/16 at 22:16; Status DC Ondansetron HCl 4 mg 4 mg ONCE ONCE IV PUSH Last administered on 10/21/16 22: 41; Start 10/21/16 at 22:15; Stop 10/21/16 at 22:16; Status DC Piperacillin Sod/ Tazobactam Sod 100 ml @ 200 mls/hr ONCE ONCE IV Last administered on 10/21/16 22:38; Start 10/21/16 at 22:30; Stop 10/21/16 at 22:59 ; Status DC Piperacillin Sod/ Tazobactam Sod (Zosyn 4.5 Gm Premix) 100 ml @ 200 mls/hr Q6H IV Last administered on 10/23/16 04:38; Start 10/22/16 at 05:00 Sodium Chloride (NS Flush) 2 ml UNSCH PRN IV FLUSH FLUSH AFTER USING IV ACCESS Last administered on 10/22/16 04:35; Start 10/21/16 at 22:45 Sodium Chloride (NS Flush) 2 ml BID IV FLUSH Last administered on 10/22/16 21: 44; Start 10/22/16 at 09:00 Ondansetron HCl (Zofran Inj) 4 mg Q6H PRN IVP NAUSEA OR VOMITING; Start at 22:45 Acetaminophen (Tylenol) 650 mg Q6H PRN PO FEVER; Start 10/21/16 at 22:45 Morphine Sulfate (Morphine Inj) 2 mg Q3H PRN IV BREAKTHROUGH PAIN Last administered on 10/23/16 03:51; Start 10/21/16 at 22:45 Oxycodone HCl (Roxicodone) 5 mg Q4H PRN PO PAIN SCALE 3 TO 5; Start 10/21/16 at 22:45 Senna/Docusate Sodium (Yoko-Colace) 1 tab BID PO Last administered on 21:44; Start 10/22/16 at 09:00 Magnesium Hydroxide (Milk Of Magnesia Liq) 30 ml Q12H PRN PO MILD - MODERATE CONSTIPATION; Start 10/21/16 at 22:45 Sennosides (Senokot) 17.2 mg Q12H PRN PO MODERATE - SEVERE CONSTIPATION; Start 10/21/16 at 22:45 Bisacodyl (Dulcolax Supp) 10 mg DAILY PRN RECTAL SEVERE CONSITIPATION; Start at 22:45 Lactulose 30 ml 30 ml DAILY PRN PO SEVERE CONSITIPATION; Start 10/21/16 at 22: 45 Multivitamins 10 ml/Folic Acid 1 mg/Sodium Chloride 510.2 ml @ 125 mls/hr Q24H IV Last administered on 10/22/16 23:31; Start 10/21/16 at 23:00; Stop at 22:59 Thiamine HCl/ Sodium Chloride (Thiamine Inj/NS Inj) 101 ml @ 100 mls/hr Q24H IV Last administered on 10/22/16 23:31; Start 10/21/16 at 23:00; Stop at 22:59 Thiamine HCl (Vitamin B1) 100 mg DAILY PO ; Start 10/25/16 at 09:00 Flumazenil (Romazicon Inj) 0.2 mg Q1M PRN IV PUSH SEE LABEL COMMENTS; Start at 22:45 Lorazepam (Ativan) 1 mg Q4H PRN PO CIWA 8 - 10; Start 10/21/16 at 22:45 Lorazepam (Ativan Inj) 1 mg Q4H PRN IV PUSH CIWA 8 - 10; Start 10/21/16 at 22: 45 Lorazepam (Ativan) 2 mg Q2H PRN PO CIWA 11-14; Start 10/21/16 at 22:45 Lorazepam (Ativan Inj) 2 mg Q2H PRN IV PUSH CIWA 11-14; Start 10/21/16 at 22:45 Lorazepam (Ativan Inj) 2 mg Q1H PRN IV PUSH CIWA 15-20; Start 10/21/16 at 22:45 Lorazepam (Ativan Inj) 2 mg Q15M PRN IV PUSH CIWA > 20; Start 10/21/16 at 22:45 Haloperidol Lactate (Haldol Inj) 2 mg Q15M PRN IM SEE LABEL COMMENTS; Start at 22:45 Pneumococcal Polyvalent Vaccine (Pneumovax-23 Inj) 25 mcg ONCE ONCE IM ; Start 10/23/16 at 10:00; Stop 10/23/16 at 10:01 Oxycodone HCl (Roxicodone) 10 mg Q4H PRN PO PAIN 6-10 Last administered on 10/23t 06:44; Start 10/22/16 at 09:15 Enalaprilat (Vasotec Inj) 1.25 mg Q6H PRN IV PUSH SBP>170, DBP>90; Start 10/23 at 03:00 A/P Assessment and Plan A/P 1. Pancreatitis: Alcoholic Pancreatitis. CT Abd/Pelvis w/ mild inflammatory changes involving pancreatic head, second portion of duodenum and pancreaticoduodenal groove. continue with supportive care with IVF, Clear liquids, advance diet slowly as the pain improves,continue analgesics; continue oxycodone- will add IV dilaudid for breakthrough pain. GI consult appreciated. 2. Duodenitis: CT Abd/Pelvis w/ above findings,. Treatment as above. consult GI. 3.elevated LFT's- likely due to alcohol- check the hepatitis panel. 4. Bandemia: Bands 8, afebrile, no leukocytosis. Continue w/ IV Abx as above. Repeat labs in am. 5. Alcohol Abuse: w/ Acute Alcohol Intoxication. Alcohol 324. CIWA, Seizure Precautions, MVT/Thiamine/Folate replacement. 6. DVT Prophylaxis: SCD/Teds. Toney Shelley MD Oct 23, 2016 07:58
[2016-10-23 08:00] VITALS: BP 156/97; PULSE 72; RESP 18; TEMP 96.7; O2SAT 97
[2016-10-23] MEDS: HYDROmorphone HCL PF 1 MG/ML VIAL IV PUSH PRN ×5 (08:32→21:58)
[2016-10-23] MEDS: DOCUSATE SODIUM 50 MG/SENNA 8.6 MG TAB PO SCH ×2 (08:34→20:45)
[2016-10-23] MEDS: SODIUM CHLORIDE 0.9% FLUSH 10 ML FLUSH IV FLUSH SCH ×2 (09:00→20:52)
[2016-10-23] MEDS ORDERED: PNEUMOCOCCAL POLYVALENT INJ 25 MCG/0.5 ML SYR IM ONE (10:00)
--- NOTE | 2016-10-23 11:58 | HHI.GIFU ---
Subjective Remarks Pt resting in bed, in no apparent distress. He still has epigastric pain. No nausea. Objective Vitals I&O Vital Signs Date Time Temp Pulse Resp B/P Pulse Ox O2 Delivery O2 Flow Rate FiO2 10/23/16 08:00 96.7 72 18 156/97 97 10/23/16 04:00 97.4 78 18 162/101 94 10/23/16 00:00 97.3 73 18 166/106 94 10/22/16 20:00 97.3 65 18 137/96 96 10/22/16 15:50 97.2 70 20 166/109 95 I/O 10/22/16 10/22/16 10/22/16 10/23/16 10/23/16 10/23/16 07:00 15:00 23:00 07:00 15:00 23:00 Intake Total 1200 ml 742 ml 800 ml 600 ml Output Total 600 ml 1900 ml 400 ml 1000 ml Balance 600 ml -1158 ml 400 ml -400 ml Intake Oral 480 ml 742 ml 800 ml 600 ml IV Total 720 ml Output Urine Total 600 ml 1900 ml 400 ml 1000 ml # Voids 0 # Bowel Movements 0 0 Laboratory Laboratory Tests Test 10/23/16 06:35 White Blood Count 4.4 Red Blood Count 3.79 Hemoglobin 12.7 Hematocrit 36.0 Mean Corpuscular Volume 95.1 Mean Corpuscular Hemoglobin 33.4 Mean Corpuscular Hemoglobin 35.1 Concent Red Cell Distribution Width 15.3 Platelet Count 119 Mean Platelet Volume 6.7 Neutrophils (%) (Auto) 66.1 Lymphocytes (%) (Auto) 15.4 Monocytes (%) (Auto) 14.1 Eosinophils (%) (Auto) 3.7 Basophils (%) (Auto) 0.7 Neutrophils # (Auto) 2.9 Lymphocytes # (Auto) 0.7 Monocytes # (Auto) 0.6 Eosinophils # (Auto) 0.2 Basophils # (Auto) 0.0 CBC Comment DIFF FINAL Differential Comment Imaging Last Impressions Abdomen/Pelvis CT 10/21/162045 Signed Impressions: Service Date/Time: Friday, October 21, 2016 21:27 - CONCLUSION: Mild inflammatory changes involving the pancreatic head, second portion the duodenum, and the pancreaticoduodenal groove. These findings can be seen with groove pancreatitis or potentially duodenitis. Germná Odom MD Chest X-Ray 10/21/16 3123 Signed Impressions: Service Date/Time: Friday, October 21, 2016 19:10 - CONCLUSION: No acute cardiopulmonary abnormality is identified. Germán Odom MD Physical Exam HEENT: PERRL; normocephalic; atraumatic; no jaundice. CHEST: CTA CARDIAC: RRR ABDOMEN: mildly firm, mildly distended, tympanitic, epigastric TTP; bowel sounds are present in all four quadrants. EXTREMITIES: No clubbing, cyanosis, or edema. SKIN: Normal; no rash; no jaundice. BELT MAKER HELPER: No focal deficits; alert and oriented times three. Assessment and Plan Plan ASSESSMENT - acute pancreatitis - recent onset severe epigastric pain. hx pancreatic cyts , ETOH abuse. CT 10/21/16 --> Mild inflammatory changes involving the pancreatic head, second portion the duodenum, and the pancreaticoduodenal groove. These findings can be seen with groove pancreatitis or potentially duodenitis - abnormal LFTs - hep panel pending. PLAN - just sips water or leyda concepción for now - await hep panel - ETOH cessation - supportive care - further recommendations to follow This pt seen by myself and Dr Godfrey and this note is written on his behalf Lata Murillo Oct 23, 2016 11:58
[2016-10-23 12:00] VITALS: BP 143/89; PULSE 71; RESP 16; TEMP 97; O2SAT 98
[2016-10-23 16:00] VITALS: BP 137/97; PULSE 68; RESP 15; TEMP 97; O2SAT 98
[2016-10-23 20:00] VITALS: BP 183/111; PULSE 62; RESP 18; TEMP 96.8; O2SAT 97
[2016-10-23] MEDS: ENALAPRILAT 1.25 MG/ML VIAL IV PUSH PRN (20:47)
[2016-10-23] MEDS: MULTIVITAMIN INJ 10 ML, FOLIC ACID INJ 1 MG in SODIUM CHLORID 0.9% 500 ML INJ 500 ML IV SCH (22:47)
[2016-10-23] MEDS: THIAMINE INJ 100 MG in SODIUM CHLORIDE 0.9% INJ 100 ML IV SCH (22:47)
[2016-10-24] VITALS (9 sets, daily range): BP systolic 121–200; BP diastolic 84–128; PULSE 65–79; RESP 15–18; TEMP 96.2–98.8; O2SAT 94–100
[2016-10-24] MEDS: HYDROmorphone HCL PF 1 MG/ML VIAL IV PUSH PRN ×6 (01:40→23:15)
[2016-10-24] MEDS: PIPERACIL-TAZO 4.5 GM PREMIX 100 ML IV SCH (04:55)
[2016-10-24 05:42] LABS: AUTOMATED NEUTROPHIL # 2.5 TH/MM3 (1.8-7.7); BASOPHIL % 0.6 % (0.0-2.0); EOSINOPHIL # 0.2 TH/MM3 (0-0.4); EOSINOPHIL % 4.1 % (0.0-4.0); HEMATOCRIT 32.3 % (39.0-51.0); HEMO FLAGS DIFF FINAL; LYMPH % 18.1 % (9.0-44.0); LYMPHOCYTE # 0.8 TH/MM3 (1.0-4.8); MEAN CELL VOLUME 95.5 FL (80.0-100.0); MEAN CORPUSCULAR HEMOGLOBIN 33.8 PG (27.0-34.0); MEAN CORPUSCULAR HGB CONC 35.4 % (32.0-36.0); MONO % 18.1 % (0.0-8.0); NEUT % 59.1 % (16.0-70.0); PLATELET COUNT 117 TH/MM3 (150-450); RED BLOOD COUNT 3.38 MIL/MM3 (4.50-5.90); RED CELL DISTRIBUTION WIDTH 15.5 % (11.6-17.2); WHITE BLOOD COUNT 4.1 TH/MM3 (4.0-11.0)
[2016-10-24 06:04] LABS: BICARBONATE 27.9 MEQ/L (21.0-32.0); POTASSIUM 3.3 MEQ/L (3.5-5.1)
[2016-10-24 06:08] LABS: CALCIUM-PROTEIN CORRECTED 7.5 MG/DL (8.5-10.1); TOTAL BILIRUBIN ADULT 1.5 MG/DL (0.2-1.0)
--- NOTE | 2016-10-24 07:57 | HHI.PR ---
Subjective Remarks although still complaining of abdominal pain , he says that he could sleep better last night. no nausea or vomiting. afebrile. Objective Vitals Vital Signs Date Time Temp Pulse Resp B/P Pulse Ox O2 Delivery O2 Flow Rate FiO2 10/24/16 04:00 97.0 73 16 152/96 94 10/24/16 00:00 97.7 65 16 130/84 96 10/23/16 20:00 96.8 62 18 183/111 97 10/23/16 16:00 97.0 68 15 137/97 98 10/23/16 12:00 97.0 71 16 143/89 98 10/23/16 08:00 96.7 72 18 156/97 97 I/O 10/23/16 10/23/16 10/23/16 10/24/16 10/24/16 10/24/16 07:00 15:00 23:00 07:00 15:00 23:00 Intake Total 600 ml 2250 ml 720 ml 600 ml Output Total 1000 ml 400 ml 800 ml Balance -400 ml 2250 ml 320 ml -200 ml Intake Oral 600 ml 2250 ml 720 ml 600 ml Output Urine Total 1000 ml 400 ml 800 ml # Voids 2 Result Diagram: 10/24/16 0435 10/24/16 0435 Imaging Last Impressions Abdomen/Pelvis CT 10/21/162045 Signed Impressions: Service Date/Time: Friday, October 21, 2016 21:27 - CONCLUSION: Mild inflammatory changes involving the pancreatic head, second portion the duodenum, and the pancreaticoduodenal groove. These findings can be seen with groove pancreatitis or potentially duodenitis. Germán Odom MD Chest X-Ray 10/21/16 4112 Signed Impressions: Service Date/Time: Friday, October 21, 2016 19:10 - CONCLUSION: No acute cardiopulmonary abnormality is identified. Germán Odom MD Objective Remarks GENERAL: This is a well-nourished, well-developed patient, in no apparent distress. CARDIOVASCULAR: Regular rate and regular rhythm without murmurs, gallops, or rubs. RESPIRATORY: Clear to auscultation. Breath sounds equal bilaterally. No wheezes , rales, or rhonchi. GASTROINTESTINAL: Abdomen soft, epigastric tenderness, nondistended. Normal, active bowel sounds MUSCULOSKELETAL: Extremities without clubbing, cyanosis, or edema. NEURO: Alert & Oriented x4 to person, place, time, situation. Moves all ext x4 Procedures none Medications and IVs Current Medications Ondansetron HCl 4 mg 4 mg ONCE ONCE IVP Last administered on 10/21/16 19:17; Start 10/21/16 at 19:00; Stop 10/21/16 at 19:01; Status DC Sodium Chloride (NS 1000 ml Inj) 1,000 ml @ 1,000 mls/hr Q1H IV Last administered on 10/21/16 19:16; Start 10/21/16 at 18:54; Stop 10/21/16 at 19:53 ; Status DC Sodium Chloride (NS Flush) 2 ml UNSCH PRN IV FLUSH FLUSH AFTER USING IV ACCESS ; Start 10/21/16 at 19:00; Stop 10/21/16 at 22:38; Status DC Famotidine (Pepcid Inj) 20 mg ONCE ONCE IV PUSH Last administered on 19:16; Start 10/21/16 at 19:00; Stop 10/21/16 at 19:01; Status DC Morphine Sulfate 2 mg 2 mg ONCE ONCE IV PUSH Last administered on 10/21/16 19 :16; Start 10/21/16 at 19:00; Stop 10/21/16 at 19:02; Status DC Sodium Chloride (NS 1000 ml Inj) 1,000 ml @ 1,000 mls/hr Q1H IV Last administered on 10/21/16 20:52; Start 10/21/16 at 20:46; Stop 10/21/16 at 21:45 ; Status DC Iohexol (Omnipaque 350 Inj) 97 ml STK-MED ONCE IV Last administered on 21:30; Start 10/21/16 at 21:30; Stop 10/21/16 at 21:31; Status DC Morphine Sulfate (Morphine Inj) 4 mg ONCE ONCE IV PUSH Last administered on 22:40; Start 10/21/16 at 22:15; Stop 10/21/16 at 22:16; Status DC Ondansetron HCl 4 mg 4 mg ONCE ONCE IV PUSH Last administered on 10/21/16 22: 41; Start 10/21/16 at 22:15; Stop 10/21/16 at 22:16; Status DC Piperacillin Sod/ Tazobactam Sod 100 ml @ 200 mls/hr ONCE ONCE IV Last administered on 10/21/16 22:38; Start 10/21/16 at 22:30; Stop 10/21/16 at 22:59 ; Status DC Piperacillin Sod/ Tazobactam Sod (Zosyn 4.5 Gm Premix) 100 ml @ 200 mls/hr Q6H IV Last administered on 10/24/16 04:55; Start 10/22/16 at 05:00 Sodium Chloride (NS Flush) 2 ml UNSCH PRN IV FLUSH FLUSH AFTER USING IV ACCESS Last administered on 10/22/16 04:35; Start 10/21/16 at 22:45 Sodium Chloride (NS Flush) 2 ml BID IV FLUSH Last administered on 10/23/16 20: 52; Start 10/22/16 at 09:00 Ondansetron HCl (Zofran Inj) 4 mg Q6H PRN IVP NAUSEA OR VOMITING; Start at 22:45 Acetaminophen (Tylenol) 650 mg Q6H PRN PO FEVER; Start 10/21/16 at 22:45 Morphine Sulfate (Morphine Inj) 2 mg Q3H PRN IV BREAKTHROUGH PAIN Last administered on 10/23/16 03:51; Start 10/21/16 at 22:45; Stop 10/23/16 at 07:59 ; Status DC Oxycodone HCl (Roxicodone) 5 mg Q4H PRN PO PAIN SCALE 3 TO 5; Start 10/21/16 at 22:45 Senna/Docusate Sodium (Yoko-Colace) 1 tab BID PO Last administered on 08:34; Start 10/22/16 at 09:00 Magnesium Hydroxide (Milk Of Magnesia Liq) 30 ml Q12H PRN PO MILD - MODERATE CONSTIPATION; Start 10/21/16 at 22:45 Sennosides (Senokot) 17.2 mg Q12H PRN PO MODERATE - SEVERE CONSTIPATION; Start 10/21/16 at 22:45 Bisacodyl (Dulcolax Supp) 10 mg DAILY PRN RECTAL SEVERE CONSITIPATION; Start at 22:45 Lactulose 30 ml 30 ml DAILY PRN PO SEVERE CONSITIPATION; Start 10/21/16 at 22: 45 Multivitamins 10 ml/Folic Acid 1 mg/Sodium Chloride 510.2 ml @ 125 mls/hr Q24H IV Last administered on 10/23/16 22:47; Start 10/21/16 at 23:00; Stop at 22:59 Thiamine HCl/ Sodium Chloride (Thiamine Inj/NS Inj) 101 ml @ 100 mls/hr Q24H IV Last administered on 10/23/16 22:47; Start 10/21/16 at 23:00; Stop at 22:59 Thiamine HCl (Vitamin B1) 100 mg DAILY PO ; Start 10/25/16 at 09:00 Flumazenil (Romazicon Inj) 0.2 mg Q1M PRN IV PUSH SEE LABEL COMMENTS; Start at 22:45 Lorazepam (Ativan) 1 mg Q4H PRN PO CIWA 8 - 10; Start 10/21/16 at 22:45 Lorazepam (Ativan Inj) 1 mg Q4H PRN IV PUSH CIWA 8 - 10; Start 10/21/16 at 22: 45 Lorazepam (Ativan) 2 mg Q2H PRN PO CIWA 11-14; Start 10/21/16 at 22:45 Lorazepam (Ativan Inj) 2 mg Q2H PRN IV PUSH CIWA 11-14; Start 10/21/16 at 22:45 Lorazepam (Ativan Inj) 2 mg Q1H PRN IV PUSH CIWA 15-20; Start 10/21/16 at 22:45 Lorazepam (Ativan Inj) 2 mg Q15M PRN IV PUSH CIWA > 20; Start 10/21/16 at 22:45 Haloperidol Lactate (Haldol Inj) 2 mg Q15M PRN IM SEE LABEL COMMENTS; Start at 22:45 Pneumococcal Polyvalent Vaccine (Pneumovax-23 Inj) 25 mcg ONCE ONCE IM ; Start 10/23/16 at 10:00; Stop 10/23/16 at 10:01; Status DC Oxycodone HCl (Roxicodone) 10 mg Q4H PRN PO PAIN 6-10 Last administered on 10/24 07:08; Start 10/22/16 at 09:15 Enalaprilat (Vasotec Inj) 1.25 mg Q6H PRN IV PUSH SBP>170, DBP>90 Last administered on 10/23/16t 20:47; Start 10/23/16 at 03:00 Hydromorphone HCl (Dilaudid Pf Inj) 0.5 mg Q4H PRN IV PUSH BREAKTHROUGH PAIN Last administered on 10/24/16t 05:42; Start 10/23/16 at 08:00 A/P Assessment and Plan A/P 1. Pancreatitis: Alcoholic Pancreatitis. CT Abd/Pelvis w/ mild inflammatory changes involving pancreatic head, second portion of duodenum and pancreaticoduodenal groove. continue with supportive care with IVF, Clear liquids, advance diet slowly as the pain improves,continue analgesics; continue oxycodone- IV dilaudid for breakthrough pain. GI following. 2. Duodenitis: CT Abd/Pelvis w/ above findings,. Treatment as above. GI follow-up as noted above. 3.elevated LFT's- likely due to alcohol- hepatitis panel pending. 4. Bandemia at the time of presentation-remains afebrile, no leukocytosis. dc' ed Abx. 5. Alcohol Abuse: w/ Acute Alcohol Intoxication. CIWA protocol, Seizure Precautions, MVT/Thiamine/Folate replacement. counselled on drinking cessation. 6.thrombocytopenia- due to alcohol- will monitor. 7. elevated BP's- likely due to the pain- vasotec prn for now- continue to monitor. 8.hypokalemia- will replace. 9. DVT Prophylaxis: SCD/Teds. Toney Shelley MD Oct 24, 2016 07:57
[2016-10-24] MEDS: DOCUSATE SODIUM 50 MG/SENNA 8.6 MG TAB PO SCH ×2 (08:40→19:17)
[2016-10-24] MEDS: SODIUM CHLORIDE 0.9% FLUSH 10 ML FLUSH IV FLUSH SCH ×2 (08:41→19:18)
[2016-10-24] MEDS ORDERED: POTASSIUM CHLORIDE 10 MEQ CONTROLLED RELEASE TAB PO ONE (09:00)
[2016-10-24] MEDS ORDERED: RESP: ALBUTEROL 1.25 MG/3 ML NEB (PRN) NEB (10:00)
[2016-10-24] MEDS: ENALAPRILAT 1.25 MG/ML VIAL IV PUSH PRN (12:11)
[2016-10-24] MEDS ORDERED: cloNIDine HCL 0.1 MG TAB PO ONE (14:00)
--- NOTE | 2016-10-24 16:35 | HHI.GIFU ---
Subjective Remarks Pt still with pain, no improvement Objective Vitals I&O Vital Signs Date Time Temp Pulse Resp B/P Pulse Ox O2 Delivery O2 Flow Rate FiO2 10/24/16 16:00 98.8 66 15 121/88 98 10/24/16 15:08 127/97 10/24/16 13:25 200/113 180/128 10/24/16 12:00 96.6 75 15 161/109 100 10/24/16 10:00 74 149/86 10/24/16 08:30 96.2 79 16 156/109 99 10/24/16 04:00 97.0 73 16 152/96 94 10/24/16 00:00 97.7 65 16 130/84 96 10/23/16 20:00 96.8 62 18 183/111 97 I/O 10/23/16 10/23/16 10/23/16 10/24/16 10/24/16 10/24/16 07:00 15:00 23:00 07:00 15:00 23:00 Intake Total 600 ml 2250 ml 720 ml 600 ml 2340 ml Output Total 1000 ml 400 ml 800 ml Balance -400 ml 2250 ml 320 ml -200 ml 2340 ml Intake Oral 600 ml 2250 ml 720 ml 600 ml 2340 ml Output Urine Total 1000 ml 400 ml 800 ml # Voids 2 3 # Bowel Movements 1 Laboratory Laboratory Tests Test 10/24/16 04:35 White Blood Count 4.1 Red Blood Count 3.38 Hemoglobin 11.4 Hematocrit 32.3 Mean Corpuscular Volume 95.5 Mean Corpuscular Hemoglobin 33.8 Mean Corpuscular Hemoglobin 35.4 Concent Red Cell Distribution Width 15.5 Platelet Count 117 Mean Platelet Volume 7.1 Neutrophils (%) (Auto) 59.1 Lymphocytes (%) (Auto) 18.1 Monocytes (%) (Auto) 18.1 Eosinophils (%) (Auto) 4.1 Basophils (%) (Auto) 0.6 Neutrophils # (Auto) 2.5 Lymphocytes # (Auto) 0.8 Monocytes # (Auto) 0.7 Eosinophils # (Auto) 0.2 Basophils # (Auto) 0.0 CBC Comment DIFF FINAL Differential Comment Sodium Level 137 Potassium Level 3.3 Chloride Level 101 Carbon Dioxide Level 27.9 Anion Gap 8 Blood Urea Nitrogen 3 Creatinine 0.79 Estimat Glomerular Filtration 102 Rate Random Glucose 90 Calcium Level 7.2 Protein Corrected Calcium 7.5 Total Bilirubin 1.5 Aspartate Amino Transf 59 (AST/SGOT) Alanine Aminotransferase 77 (ALT/SGPT) Alkaline Phosphatase 52 Total Protein 6.6 Albumin 3.0 Hepatitis A IgM Antibody NEGATIVE Hepatitis B Surface Antigen NEGATIVE Hepatitis B Core IgM Antibody NEGATIVE Hepatitis C Antibody REACTIVE Imaging Last Impressions Abdomen/Pelvis CT 10/21/162045 Signed Impressions: Service Date/Time: Friday, October 21, 2016 21:27 - CONCLUSION: Mild inflammatory changes involving the pancreatic head, second portion the duodenum, and the pancreaticoduodenal groove. These findings can be seen with groove pancreatitis or potentially duodenitis. Germán Odom MD Chest X-Ray 10/21/16 1854 Signed Impressions: Service Date/Time: Friday, October 21, 2016 19:10 - CONCLUSION: No acute cardiopulmonary abnormality is identified. Germán Odom MD Physical Exam HEENT: PERRL; normocephalic; atraumatic; no jaundice. CHEST: wheezes CARDIAC: RRR ABDOMEN: mildly firm, mildly distended, tympanitic, epigastric TTP; bowel sounds are present in all four quadrants. EXTREMITIES: No clubbing, cyanosis, or edema. SKIN: Normal; no rash; no jaundice. DIRECTOR OF MATERNITY SERVICES: No focal deficits; alert and oriented times three. Assessment and Plan Plan ASSESSMENT - acute pancreatitis - recent onset severe epigastric pain. hx pancreatic cyts , ETOH abuse. CT 10/21/16 --> Mild inflammatory changes involving the pancreatic head, second portion the duodenum, and the pancreaticoduodenal groove. These findings can be seen with groove pancreatitis or potentially duodenitis - abnormal LFTs - trending down but bilirubin increased. hep c AB reactive PLAN - hep c genotype, quant - just sips water or leyda concepción for now - ETOH cessation - supportive care - consider repeat imaging if no improvement - further recommendations to follow This pt seen by myself and Dr Godfrey and this note is written on his behalf Lata Murillo Oct 24, 2016 16:35
[2016-10-24] MEDS: NICOTINE 21 MG/24 HR PATCH T-DERMAL SCH (17:02)
[2016-10-24] MEDS: REMOVE OLD NICODERM (NICOTINE) PATCH T-DERMAL SCH (19:18)
[2016-10-24] MEDS: MULTIVITAMIN INJ 10 ML, FOLIC ACID INJ 1 MG in SODIUM CHLORID 0.9% 500 ML INJ 500 ML IV SCH (23:47)
[2016-10-25] VITALS (8 sets, daily range): BP systolic 138–179; BP diastolic 90–113; PULSE 60–81; RESP 16–20; TEMP 96.4–98.1; O2SAT 97–100
[2016-10-25] MEDS: HYDROmorphone HCL PF 1 MG/ML VIAL IV PUSH PRN ×4 (03:18→21:40)
[2016-10-25] MEDS: ENALAPRILAT 1.25 MG/ML VIAL IV PUSH PRN (03:47)
[2016-10-25] MEDS: NICOTINE 21 MG/24 HR PATCH T-DERMAL SCH (07:42)
[2016-10-25] MEDS: DOCUSATE SODIUM 50 MG/SENNA 8.6 MG TAB PO SCH ×2 (07:42→20:22)
[2016-10-25] MEDS: THIAMINE HCL 100 MG TAB PO SCH (07:42)
[2016-10-25] MEDS: REMOVE OLD NICODERM (NICOTINE) PATCH T-DERMAL SCH (07:43)
[2016-10-25] MEDS: SODIUM CHLORIDE 0.9% FLUSH 10 ML FLUSH IV FLUSH SCH ×2 (07:43→20:26)
[2016-10-25 08:35] LABS: ALKALINE PHOSPHATASE 54 U/L (45-117); ALT (GPT) 74 U/L (12-78); ANION GAP 5 MEQ/L (5-15); AST (GOT) 58 U/L (15-37); BICARBONATE 30.6 MEQ/L (21.0-32.0); BLOOD UREA NITROGEN 2 MG/DL (7-18); CHLORIDE 101 MEQ/L (98-107); GLOMERULAR FILTRATION RATE 107 ML/MIN (>89); POTASSIUM 3.8 MEQ/L (3.5-5.1); SODIUM (NA) 137 MEQ/L (136-145); TOTAL BILIRUBIN ADULT 1.6 MG/DL (0.2-1.0)
[2016-10-25] MEDS ORDERED: DIATRIZOATE MEGLUM/DIATRIZOATE SOD 9 ML CUP PO ONE (09:56)
--- NOTE | 2016-10-25 10:13 | HHI.GIFU ---
Subjective Remarks Pt resting in bed, watching tv. Says his pain is a little better than it was but is still severe. He is tolerating clears. No nausea. Objective Vitals I&O Vital Signs Date Time Temp Pulse Resp B/P Pulse Ox O2 Delivery O2 Flow Rate FiO2 10/25/16 07:39 97.1 65 18 160/101 100 10/25/16 04:00 97.2 69 18 165/98 98 10/25/16 00:00 98.1 60 18 156/95 97 10/24/16 20:30 97.2 67 18 155/89 98 10/24/16 16:00 98.8 66 15 121/88 98 10/24/16 15:08 127/97 10/24/16 13:25 200/113 180/128 10/24/16 12:00 96.6 75 15 161/109 100 I/O 10/24/16 10/24/16 10/24/16 10/25/16 10/25/16 10/25/16 07:00 15:00 23:00 07:00 15:00 23:00 Intake Total 600 ml 2340 ml 720 ml 720 ml 240 ml Output Total 800 ml 800 ml Balance -200 ml 2340 ml 720 ml -80 ml 240 ml Intake Oral 600 ml 2340 ml 720 ml 720 ml 240 ml Output Urine Total 800 ml 800 ml # Voids 3 2 # Bowel Movements 1 Laboratory Laboratory Tests Test 10/25/16 07:27 Sodium Level 137 Potassium Level 3.8 Chloride Level 101 Carbon Dioxide Level 30.6 Anion Gap 5 Blood Urea Nitrogen 2 Creatinine 0.76 Estimat Glomerular Filtration 107 Rate Random Glucose 86 Calcium Level 8.3 Total Bilirubin 1.6 Aspartate Amino Transf 58 (AST/SGOT) Alanine Aminotransferase 74 (ALT/SGPT) Alkaline Phosphatase 54 Total Protein 7.1 Albumin 3.2 Imaging Last Impressions Abdomen/Pelvis CT 10/21/162045 Signed Impressions: Service Date/Time: Friday, October 21, 2016 21:27 - CONCLUSION: Mild inflammatory changes involving the pancreatic head, second portion the duodenum, and the pancreaticoduodenal groove. These findings can be seen with groove pancreatitis or potentially duodenitis. Germán Odom MD Chest X-Ray 10/21/16 1854 Signed Impressions: Service Date/Time: Friday, October 21, 2016 19:10 - CONCLUSION: No acute cardiopulmonary abnormality is identified. Germán Odom MD Physical Exam HEENT: PERRL; normocephalic; atraumatic; no jaundice. CHEST: wheezes CARDIAC: RRR ABDOMEN: mildly firm, mildly distended, tympanitic, epigastric TTP but no TTP to pressure with stethoscope; bowel sounds are present in all four quadrants. EXTREMITIES: No clubbing, cyanosis, or edema. SKIN: Normal; no rash; no jaundice. UNIVERSAL BANKER: No focal deficits; alert and oriented times three. Assessment and Plan Plan ASSESSMENT - acute pancreatitis - recent onset severe epigastric pain. hx pancreatic cyts , ETOH abuse. CT 10/21/16 --> Mild inflammatory changes involving the pancreatic head, second portion the duodenum, and the pancreaticoduodenal groove. These findings can be seen with groove pancreatitis or potentially duodenitis - abnormal LFTs - trending down but bilirubin increasing. hep c AB reactive PLAN - await hep c genotype, quant - full liquid - ETOH cessation - supportive care - await CT - further recommendations to follow This pt seen by myself and Dr Godfrey and this note is written on his behalf Lata Murillo Oct 25, 2016 10:13
--- NOTE | 2016-10-25 10:32 | HHI.PR ---
Subjective Remarks The pt was still having pain in his upper abdomen. He has been tolerating a clear liquid diet. He was ready to go for the repeat CT scan. Has been having watery bowel movements. Discussed with nursing. Objective Vitals Vital Signs Date Time Temp Pulse Resp B/P Pulse Ox O2 Delivery O2 Flow Rate FiO2 10/25/16 07:39 97.1 65 18 160/101 100 10/25/16 04:00 97.2 69 18 165/98 98 10/25/16 00:00 98.1 60 18 156/95 97 10/24/16 20:30 97.2 67 18 155/89 98 10/24/16 16:00 98.8 66 15 121/88 98 10/24/16 15:08 127/97 10/24/16 13:25 200/113 180/128 10/24/16 12:00 96.6 75 15 161/109 100 I/O 10/24/16 10/24/16 10/24/16 10/25/16 10/25/16 10/25/16 07:00 15:00 23:00 07:00 15:00 23:00 Intake Total 600 ml 2340 ml 720 ml 720 ml 240 ml Output Total 800 ml 800 ml Balance -200 ml 2340 ml 720 ml -80 ml 240 ml Intake Oral 600 ml 2340 ml 720 ml 720 ml 240 ml Output Urine Total 800 ml 800 ml # Voids 3 2 # Bowel Movements 1 Result Diagram: 10/24/16 0435 10/25/16 0727 Imaging Last Impressions Abdomen/Pelvis CT 10/21/16 2046 Signed Impressions: Service Date/Time: Friday, October 21, 2016 21:27 - CONCLUSION: Mild inflammatory changes involving the pancreatic head, second portion the duodenum, and the pancreaticoduodenal groove. These findings can be seen with groove pancreatitis or potentially duodenitis. Germán Odom MD Chest X-Ray 10/21/16 3248 Signed Impressions: Service Date/Time: Friday, October 21, 2016 19:10 - CONCLUSION: No acute cardiopulmonary abnormality is identified. Germán Odom MD Objective Remarks GENERAL: This is a well-nourished, well-developed patient, in no apparent distress. HEENT: NC, AT. CARDIOVASCULAR: Regular rate and regular rhythm without murmurs, gallops, or rubs. RESPIRATORY: Clear to auscultation. Breath sounds equal bilaterally. No wheezes , rales, or rhonchi. GASTROINTESTINAL: Abdomen soft, epigastric tenderness, slightly distended. MUSCULOSKELETAL: Extremities without clubbing, cyanosis, or edema. NEURO: Alert & Oriented x4 to person, place, time, situation. Moves all ext x4. PSYCH: Mood and affect appropriate. Procedures none Medications and IVs Current Medications Medications (Trade) Dose Ordered Sig/Fercho Route Start Time Stop Time Status Last Admin (NS Flush) 2 ml UNSCH PRN IV FLUSH 10/21/16 22:45 10/22/16 04:35 (NS Flush) 2 ml BID IV FLUSH 10/22/16 09:00 10/25/16 07:43 (Zofran Inj) 4 mg Q6H PRN IVP 10/21/16 22:45 (Tylenol) 650 mg Q6H PRN PO 10/21/16 22:45 (Roxicodone) 5 mg Q4H PRN PO 10/21/16 22:45 (Yoko-Colace) 1 tab BID PO 10/22/16 09:00 10/24/16 08:40 (Milk Of Magnesia Liq) 30 ml Q12H PRN PO 10/21/16 22:45 (Senokot) 17.2 mg Q12H PRN PO 10/21/16 22:45 (Dulcolax Supp) 10 mg DAILY PRN RECTAL 10/21/16 22:45 Lactulose 30 ml 30 ml DAILY PRN PO 10/21/16 22:45 (Mvi-12 Inj/ Folvite Inj/NS 500 ml Inj) 510.2 ml @ 125 mls/hr Q24H IV 10/21/16 23:00 10/26/16 22:59 10/24/16 23:47 (Vitamin B1) 100 mg DAILY PO 10/25/16 09:00 10/25/16 07:42 (Romazicon Inj) 0.2 mg Q1M PRN IV PUSH 10/21/16 22:45 (Ativan) 1 mg Q4H PRN PO 10/21/16 22:45 (Ativan Inj) 1 mg Q4H PRN IV PUSH 10/21/16 22:45 (Ativan) 2 mg Q2H PRN PO 10/21/16 22:45 (Ativan Inj) 2 mg Q2H PRN IV PUSH 10/21/16 22:45 (Ativan Inj) 2 mg Q1H PRN IV PUSH 10/21/16 22:45 (Ativan Inj) 2 mg Q15M PRN IV PUSH 10/21/16 22:45 (Haldol Inj) 2 mg Q15M PRN IM 10/21/16 22:45 (Roxicodone) 10 mg Q4H PRN PO 10/22/16 09:15 10/25/16 07:42 (Vasotec Inj) 1.25 mg Q6H PRN IV PUSH 10/23/16 03:00 10/25/16 03:47 (Dilaudid Pf Inj) 0.5 mg Q4H PRN IV PUSH 10/23/16 08:00 10/25/16 07:42 (Habitrol 21 Mg Patch.24 Hr) 1 patch DAILY T-DERMAL 10/24/16 17:00 10/25/16 07:42 Miscellaneous Information 1 HS T-DERMAL 10/24/16 21:00 10/25/16 07:43 (Catapres) 0.1 mg Q6H PRN PO 10/25/16 09:45 (Prinivil) 10 mg DAILY PO 10/25/16 09:45 A/P Problem List: (1) Pancreatitis ICD Code: K85.90 Status: Acute (2) Duodenitis ICD Code: K29.80 Status: Acute (3) Bandemia ICD Code: D72.825 Status: Acute (4) Alcohol abuse ICD Code: F10.10 Status: Acute Assessment and Plan Alcoholic Pancreatitis/ Duoedenitis CT Abd/Pelvis w/ mild inflammatory changes involving pancreatic head, second portion of duodenum and pancreaticoduodenal groove. GI consult appreciated. - continue with supportive care with IVF, clear liquids, advance diet slowly as the pain improves. - continue analgesics. - follow up with GI. Repeat CT abdomen pending. Elevated LFT's Likely due to alcohol. HCV reactive. - follow LFTs. Alcohol Abuse With acute alcohol intoxication. - CIWA protocol, Seizure Precautions, MVT/Thiamine/Folate replacement. - counselled on drinking cessation. Thrombocytopenia Likely due to alcohol. - will monitor CBC. HTN Likely due to the pain. - pain control. - Vasotec and clonidine prn. - lisinopril 10 mg daily. Continue to monitor. DVT Prophylaxis: SCD/Teds. Discharge Planning Awaiting clinical improvement Gary Cerrato DO Oct 25, 2016 10:32
[2016-10-25] MEDS: LISINOPRIL 10 MG TAB PO SCH (12:20)
[2016-10-25] MEDS: cloNIDine HCL 0.1 MG TAB PO PRN (13:53)
[2016-10-25] MEDS ORDERED: IOHEXOL 350 MG/ML 10 ML VIAL (for RAD DIAG) IV ONE (15:44)
--- NOTE | 2016-10-25 16:10 | RADRPT ---
EXAM DATE/TIME: 10/25/2016 15:44 [facility] COMPARISON: CT ABDOMEN & PELVIS W CONTRAST, October 21, 2016, 21:27. INDICATIONS : Epigastric pain . IV CONTRAST: 94 cc Omnipaque 350 (iohexol) IV ORAL CONTRAST: Prescribed oral contrast ingested. RADIATION DOSE: 9.96 CTDIvol (mGy) MEDICAL HISTORY : Pancreatitis. SURGICAL HISTORY : Thyroid disease ENCOUNTER: Initial ACUITY: 3 days PAIN SCALE: 7/10 LOCATION: Bilateral Umbilical TECHNIQUE: Volumetric scanning of the abdomen and pelvis was performed. Using automated exposure control and ad justment of the mA and/or kV according to patient size, radiation dose was kept as low as reasonably achievable to obtain optimal diagnostic quality images. FINDINGS: There is subsegmental air space disease in the right lower lobe and right middle lobe. No effusion. There is fatty infiltration of the liver. There is some inflammatory stranding in the fat around the pancreas and also around the distal duodenum. Spleen, adrenals, kidneys unremarkable. No calcified ga llstones or periductal dilatation. Trace free fluid in the pelvis. No free air. No bowel obstruction. No acute bony abnormality. CONCLUSION: 1. Mild inflammatory or edematous changes around the pancreas and also around the distal duodenum. Di fferential diagnosis includes mild pancreatitis and duodenitis. Findings are similar to October 21. 2. New subsegmental air space disease noted in the medial segment right middle lobe and right lower l obe. Joseph Dixon MD on October 25, 2016 at 15:57 Board Certified Radiologist. This report was verified electronically.
[2016-10-26 00:03] VITALS: BP 172/102; PULSE 76; RESP 16; TEMP 97.1; O2SAT 100
[2016-10-26] MEDS: ENALAPRILAT 1.25 MG/ML VIAL IV PUSH PRN (00:29)
[2016-10-26] MEDS: MULTIVITAMIN INJ 10 ML, FOLIC ACID INJ 1 MG in SODIUM CHLORID 0.9% 500 ML INJ 500 ML IV SCH (00:49)
[2016-10-26] MEDS: HYDROmorphone HCL PF 1 MG/ML VIAL IV PUSH PRN ×5 (02:00→20:54)
[2016-10-26] MEDS: cloNIDine HCL 0.1 MG TAB PO PRN ×2 (02:27→17:20)
[2016-10-26 04:13] VITALS: BP 130/92; PULSE 84; RESP 18; TEMP 97.7; O2SAT 97
[2016-10-26 08:00] VITALS: BP 171/105; PULSE 80; RESP 18; TEMP 97.2; O2SAT 98
[2016-10-26] MEDS: DOCUSATE SODIUM 50 MG/SENNA 8.6 MG TAB PO SCH (08:38)
[2016-10-26] MEDS: THIAMINE HCL 100 MG TAB PO SCH (08:38)
[2016-10-26] MEDS: LISINOPRIL 10 MG TAB PO SCH (08:38)
[2016-10-26] MEDS: NICOTINE 21 MG/24 HR PATCH T-DERMAL SCH (08:39)
[2016-10-26] MEDS: SODIUM CHLORIDE 0.9% FLUSH 10 ML FLUSH IV FLUSH SCH ×2 (09:00→20:55)
--- NOTE | 2016-10-26 10:15 | HHI.GIFU ---
Subjective Remarks Resting in bed. Still with epigastric pain, slightly improved. Tolerating full liquids. Moving bowels. Objective Vitals I&O Vital Signs Date Time Temp Pulse Resp B/P Pulse Ox O2 Delivery O2 Flow Rate FiO2 10/26/16 08:00 97.2 80 18 171/105 98 10/26/16 07:10 16 10/26/16 07:10 16 10/26/16 04:13 97.7 84 18 130/92 97 10/26/16 00:03 97.1 76 16 172/102 100 10/25/16 20:02 96.5 81 20 160/98 99 10/25/16 16:00 97.0 68 16 98 10/25/16 15:11 138/90 10/25/16 13:00 70 179/105 10/25/16 12:00 96.4 69 18 179/113 99 I/O 10/25/16 10/25/16 10/25/16 10/26/16 10/26/16 10/26/16 07:00 15:00 23:00 07:00 15:00 23:00 Intake Total 720 ml 1320 ml 600 ml 240 ml Output Total 800 ml Balance -80 ml 1320 ml 600 ml 240 ml Intake Oral 720 ml 1320 ml 600 ml 240 ml Output Urine Total 800 ml # Voids 5 4 1 # Bowel Movements 1 1 Imaging Last Impressions Abdomen/Pelvis CT 10/25/16 0000 Signed Impressions: Service Date/Time: October 15:44 - CONCLUSION: 1. Mild inflammatory or edematous changes around the pancreas and also around the distal duodenum. Differential diagnosis includes mild pancreatitis and duodenitis. Findings are similar to October 21. 2. New subsegmental air space disease noted in the medial segment right middle lobe and right lower lobe. Joseph Dixon MD Chest X-Ray 10/21/16 [id number] Signed Impressions: Service Date/Time: Friday, October 21, 2016 19:10 - CONCLUSION: No acute cardiopulmonary abnormality is identified. Germán Odom MD Physical Exam HEENT: Normocephalic; atraumatic; no jaundice. CHEST: Resp. even/unlabored CARDIAC: RRR ABDOMEN: Abdomen soft, epigastric tenderness, bowel sounds are present in all four quadrants. EXTREMITIES: No clubbing, cyanosis, or edema. SKIN: Normal; no rash; no jaundice. OPHTHALMIC AIDE: No focal deficits; alert and oriented times three. Assessment and Plan Plan ASSESSMENT - Acute pancreatitis with hx pancreatic cyts, ETOH abuse. Abdomen/Pelvis CT ()----> 1. Mild inflammatory or edematous changes around the pancreas and also around the distal duodenum. Differential diagnosis includes mild pancreatitis and duodenitis. Findings are similar to October 21. 2. New subsegmental air space disease noted in the medial segment right middle lobe and right lower lobe. Lipase normalized. Appears comfortable, but c/o that he is still having epigastric pain. Add PPI. Low fat diet. - Abnormal LFTs. CT as above. Hep c AB reactive, genotype/viral load pending. Improving. - HCV Ab (+). Genotype/viral load pending. PLAN - Low fat diet - Cont. PPI - Await HCV Genotype/Viral load - ETOH cessation - Supportive care - If no improvement,could consider EGD - This pt seen by myself and Dr Godfrey and this note is written on his behalf Phuong Prieto Oct 26, 2016 10:15
--- NOTE | 2016-10-26 10:56 | HHI.PR ---
Subjective Remarks The patient complained of epigastric pain. He said that he has been tolerating his liquid diet and was looking for something more filling. He says the last time he had an episode of pancreatitis was about 10 years ago. He has been having bowel movements. Objective Vitals Vital Signs Date Time Temp Pulse Resp B/P Pulse Ox O2 Delivery O2 Flow Rate FiO2 10/26/16 08:00 97.2 80 18 171/105 98 10/26/16 07:10 16 10/26/16 07:10 16 10/26/16 04:13 97.7 84 18 130/92 97 10/26/16 00:03 97.1 76 16 172/102 100 10/25/16 20:02 96.5 81 20 160/98 99 10/25/16 16:00 97.0 68 16 98 10/25/16 15:11 138/90 10/25/16 13:00 70 179/105 10/25/16 12:00 96.4 69 18 179/113 99 I/O 10/25/16 10/25/16 10/25/16 10/26/16 10/26/16 10/26/16 07:00 15:00 23:00 07:00 15:00 23:00 Intake Total 720 ml 1320 ml 600 ml 240 ml Output Total 800 ml Balance -80 ml 1320 ml 600 ml 240 ml Intake Oral 720 ml 1320 ml 600 ml 240 ml Output Urine Total 800 ml # Voids 5 4 1 # Bowel Movements 1 1 Result Diagram: 10/24/16 0435 10/25/16 0727 Imaging Last Impressions Abdomen/Pelvis CT 10/25/16 0000 Signed Impressions: Service Date/Time: October 15:44 - CONCLUSION: 1. Mild inflammatory or edematous changes around the pancreas and also around the distal duodenum. Differential diagnosis includes mild pancreatitis and duodenitis. Findings are similar to October 21. 2. New subsegmental air space disease noted in the medial segment right middle lobe and right lower lobe. Joseph Dixon MD Chest X-Ray 10/21/16 [id number] Signed Impressions: Service Date/Time: Friday, October 21, 2016 19:10 - CONCLUSION: No acute cardiopulmonary abnormality is identified. Germán Odom MD Objective Remarks GENERAL: This is a well-nourished, well-developed patient, in no apparent distress. HEENT: NC, AT. CARDIOVASCULAR: Regular rate and regular rhythm without murmurs, gallops, or rubs. RESPIRATORY: Clear to auscultation. Breath sounds equal bilaterally. No wheezes , rales, or rhonchi. GASTROINTESTINAL: Abdomen soft, epigastric tenderness, nondistended. MUSCULOSKELETAL: Extremities without clubbing, cyanosis, or edema. NEURO: Alert & Oriented x4 to person, place, time, situation. Moves all ext x4. PSYCH: Mood and affect appropriate. Procedures none Medications and IVs Current Medications Medications (Trade) Dose Ordered Sig/Fercho Route Start Time Stop Time Status Last Admin (NS Flush) 2 ml UNSCH PRN IV FLUSH 10/21/16 22:45 10/22/16 04:35 (NS Flush) 2 ml BID IV FLUSH 10/22/16 09:00 10/25/16 20:26 (Zofran Inj) 4 mg Q6H PRN IVP 10/21/16 22:45 (Tylenol) 650 mg Q6H PRN PO 10/21/16 22:45 (Roxicodone) 5 mg Q4H PRN PO 10/21/16 22:45 (Yoko-Colace) 1 tab BID PO 10/22/16 09:00 10/26/16 08:38 (Milk Of Magnesia Liq) 30 ml Q12H PRN PO 10/21/16 22:45 (Senokot) 17.2 mg Q12H PRN PO 10/21/16 22:45 (Dulcolax Supp) 10 mg DAILY PRN RECTAL 10/21/16 22:45 Lactulose 30 ml 30 ml DAILY PRN PO 10/21/16 22:45 (Mvi-12 Inj/ Folvite Inj/NS 500 ml Inj) 510.2 ml @ 125 mls/hr Q24H IV 10/21/16 23:00 10/26/16 22:59 10/26/16 00:49 (Vitamin B1) 100 mg DAILY PO 10/25/16 09:00 10/26/16 08:38 (Romazicon Inj) 0.2 mg Q1M PRN IV PUSH 10/21/16 22:45 (Ativan) 1 mg Q4H PRN PO 10/21/16 22:45 (Ativan Inj) 1 mg Q4H PRN IV PUSH 10/21/16 22:45 (Ativan) 2 mg Q2H PRN PO 10/21/16 22:45 (Ativan Inj) 2 mg Q2H PRN IV PUSH 10/21/16 22:45 (Ativan Inj) 2 mg Q1H PRN IV PUSH 10/21/16 22:45 (Ativan Inj) 2 mg Q15M PRN IV PUSH 10/21/16 22:45 (Haldol Inj) 2 mg Q15M PRN IM 10/21/16 22:45 (Roxicodone) 10 mg Q4H PRN PO 10/22/16 09:15 10/26/16 06:37 (Vasotec Inj) 1.25 mg Q6H PRN IV PUSH 10/23/16 03:00 10/26/16 00:29 (Dilaudid Pf Inj) 0.5 mg Q4H PRN IV PUSH 10/23/16 08:00 10/26/16 06:37 (Habitrol 21 Mg Patch.24 Hr) 1 patch DAILY T-DERMAL 10/24/16 17:00 10/26/16 08:39 Miscellaneous Information 1 HS T-DERMAL 10/24/16 21:00 10/25/16 07:43 (Catapres) 0.1 mg Q6H PRN PO 10/25/16 09:45 10/26/16 02:27 (Prinivil) 10 mg DAILY PO 10/25/16 09:45 10/26/16 08:38 (Protonix Inj) 40 mg Q24H IV PUSH 10/26/16 09:30 A/P Problem List: (1) Pancreatitis ICD Code: K85.90 Status: Acute (2) Duodenitis ICD Code: K29.80 Status: Acute (3) Bandemia ICD Code: D72.825 Status: Acute (4) Alcohol abuse ICD Code: F10.10 Status: Acute Assessment and Plan Alcoholic Pancreatitis/ Duoedenitis CT Abd/Pelvis w/ mild inflammatory changes involving pancreatic head, second portion of duodenum and pancreaticoduodenal groove. GI consult appreciated. Repeat CT scan showed: Mild inflammatory or edematous changes around the pancreas and also around the distal duodenum. - continue with supportive care. Heart healthy diet per GI. - continue analgesics with a bowel regimen. Elevated LFT's Likely due to alcohol. HCV reactive. - follow LFTs, viral load. Alcohol Abuse With acute alcohol intoxication. - CIWA protocol, Seizure Precautions, MVT/Thiamine/Folate replacement. - counselled on drinking cessation. Thrombocytopenia Likely due to alcohol. - will monitor CBC as needed. HTN Likely due to the pain. - pain control. - Vasotec and clonidine prn. - lisinopril 10 mg daily. Continue to monitor. DVT Prophylaxis: SCD/Teds. Discharge Planning Awaiting clinical improvement. Hopefully d/c home in Gary Canales DO Oct 26, 2016 10:56
[2016-10-26] MEDS ORDERED: DOCUSATE SODIUM 50 MG/SENNA 8.6 MG TAB PO PRN (11:00)
[2016-10-26 12:00] VITALS: BP 159/97; PULSE 69; RESP 18; TEMP 97.4; O2SAT 95
[2016-10-26] MEDS: PANTOPRAZOLE SODIUM 40 MG VIAL IV PUSH SCH (12:13)
[2016-10-26 12:30] LABS: ALKALINE PHOSPHATASE 52 U/L (45-117); ALT (GPT) 69 U/L (12-78); ANION GAP 5 MEQ/L (5-15); AST (GOT) 53 U/L (15-37); BICARBONATE 32.1 MEQ/L (21.0-32.0); BLOOD UREA NITROGEN 3 MG/DL (7-18); CHLORIDE 102 MEQ/L (98-107); GLOMERULAR FILTRATION RATE 107 ML/MIN (>89); POTASSIUM 3.9 MEQ/L (3.5-5.1); SODIUM (NA) 139 MEQ/L (136-145); TOTAL BILIRUBIN ADULT 1.1 MG/DL (0.2-1.0)
[2016-10-26 16:00] VITALS: BP 182/94; PULSE 80; RESP 18; TEMP 96.5; O2SAT 96
[2016-10-26 20:00] VITALS: BP 144/90; PULSE 72; RESP 18; TEMP 96.7; O2SAT 98
[2016-10-26] MEDS: REMOVE OLD NICODERM (NICOTINE) PATCH T-DERMAL SCH (20:55)
[2016-10-27] VITALS (11 sets, daily range): BP systolic 109–176; BP diastolic 71–109; PULSE 54–90; RESP 16–20; TEMP 95–97.9; O2SAT 95–98
[2016-10-27] MEDS: HYDROmorphone HCL PF 1 MG/ML VIAL IV PUSH PRN ×4 (02:51→18:03)
[2016-10-27] MEDS: cloNIDine HCL 0.1 MG TAB PO PRN ×2 (02:58→23:32)
[2016-10-27] MEDS: ENALAPRILAT 1.25 MG/ML VIAL IV PUSH PRN (03:53)
[2016-10-27 07:49] LABS: ANION GAP 7 MEQ/L (5-15); AST (GOT) 61 U/L (15-37); BICARBONATE 31.9 MEQ/L (21.0-32.0); BLOOD UREA NITROGEN 6 MG/DL (7-18); CHLORIDE 99 MEQ/L (98-107); GLOMERULAR FILTRATION RATE 94 ML/MIN (>89); POTASSIUM 3.7 MEQ/L (3.5-5.1); SODIUM (NA) 138 MEQ/L (136-145)
[2016-10-27 07:50] LABS: ALT (GPT) 75 U/L (12-78)
[2016-10-27 07:52] LABS: ALKALINE PHOSPHATASE 50 U/L (45-117); TOTAL BILIRUBIN ADULT 1.3 MG/DL (0.2-1.0)
[2016-10-27] MEDS: THIAMINE HCL 100 MG TAB PO SCH (08:29)
[2016-10-27] MEDS: PANTOPRAZOLE SODIUM 40 MG VIAL IV PUSH SCH (08:29)
[2016-10-27] MEDS: LISINOPRIL 10 MG TAB PO SCH (08:29)
[2016-10-27] MEDS: NICOTINE 21 MG/24 HR PATCH T-DERMAL SCH (08:30)
[2016-10-27] MEDS: SODIUM CHLORIDE 0.9% FLUSH 10 ML FLUSH IV FLUSH SCH ×2 (08:30→21:20)
--- NOTE | 2016-10-27 11:36 | HHI.GIFU ---
Subjective Remarks Sitting up on side of bed. States he ate solids today, but he continues to have abdominal pain-epigastric area. No n/v. C/O loose stool earlier today. (Phuong Prieto) Objective Vitals I&O Vital Signs Date Time Temp Pulse Resp B/P Pulse Ox O2 Delivery O2 Flow Rate FiO2 10/27/16 08:00 96.8 65 16 142/86 96 10/27/16 06:00 96.1 58 18 136/88 97 10/27/16 04:00 96.1 76 18 156/96 96 10/27/16 03:55 16 10/27/16 03:55 16 10/27/16 03:48 63 20 171/105 96 10/27/16 02:55 97.0 76 20 176/109 98 10/27/16 00:00 96.3 69 17 127/87 97 10/26/16 20:00 96.7 72 18 144/90 98 10/26/16 16:00 96.5 80 18 182/94 96 10/26/16 12:00 97.4 69 18 159/97 95 I/O 10/26/16 10/26/16 10/26/16 10/27/16 10/27/16 10/27/16 07:00 15:00 23:00 07:00 15:00 23:00 Intake Total 240 ml 2160 ml 720 ml 240 ml Balance 240 ml 2160 ml 720 ml 240 ml Intake Oral 240 ml 2160 ml 720 ml 240 ml # Voids 1 5 3 2 # Bowel Movements 1 1 1 Laboratory Laboratory Tests Test 10/27/16 06:53 Sodium Level 138 Potassium Level 3.7 Chloride Level 99 Carbon Dioxide Level 31.9 Anion Gap 7 Blood Urea Nitrogen 6 Creatinine 0.85 Estimat Glomerular Filtration 94 Rate Random Glucose 96 Calcium Level 9.5 Total Bilirubin 1.3 Aspartate Amino Transf 61 (AST/SGOT) Alanine Aminotransferase 75 (ALT/SGPT) Alkaline Phosphatase 50 Total Protein 7.2 Albumin 3.1 Imaging Last Impressions Abdomen/Pelvis CT 10/25/16 0000 Signed Impressions: Service Date/Time: October 15:44 - CONCLUSION: 1. Mild inflammatory or edematous changes around the pancreas and also around the distal duodenum. Differential diagnosis includes mild pancreatitis and duodenitis. Findings are similar to October 21. 2. New subsegmental air space disease noted in the medial segment right middle lobe and right lower lobe. Joseph Dixon MD Chest X-Ray 10/21/16 [id number] Signed Impressions: Service Date/Time: Friday, October 21, 2016 19:10 - CONCLUSION: No acute cardiopulmonary abnormality is identified. Germán Odom MD Physical Exam HEENT: Normocephalic; atraumatic; no jaundice. CHEST: Resp. even/unlabored CARDIAC: RRR ABDOMEN: Abdomen soft, epigastric tenderness, bowel sounds are present in all four quadrants. EXTREMITIES: No clubbing, cyanosis, or edema. SKIN: Normal; no rash; no jaundice. LEADING FIREFIGHTER: No focal deficits; alert and oriented times three. (Phuong Prieto) Assessment and Plan Plan ASSESSMENT - Acute pancreatitis with hx pancreatic cyts, ETOH abuse. Abdomen/Pelvis CT ()----> 1. Mild inflammatory or edematous changes around the pancreas and also around the distal duodenum. Differential diagnosis includes mild pancreatitis and duodenitis. Findings are similar to October 21. 2. New subsegmental air space disease noted in the medial segment right middle lobe and right lower lobe. Lipase normalized. Appears comfortable, but c/o that he is still having epigastric pain- states no improvement. Tolerated low aft diet. PPI was added for his duodenitis, no improvement. Will add carafate. If still here on Saturday and no improvement, will plan for EGD. - Abnormal LFTs. CT as above. Hep c AB reactive, genotype/viral load pending. Improving. T. Bili 1.3, AST 61, ALT 75, Alk Phosph 50. - HCV Ab (+). Genotype/viral load pending. PLAN - Low fat diet - Cont. PPI - Add carafate - Await HCV Genotype/Viral load - ETOH cessation - Supportive care - If not discharged and no improvement, EGD Saturday - This pt seen by myself and Dr Leon and this note is written on his behalf (Phuong Prieto) Plan Patient was seen and examined, agree with above note, await labs result ( Florinda Leon MD) Phuong Prieto Oct 27, 2016 11:36 Florinda Leon MD Oct 27, 2016 15:26
--- NOTE | 2016-10-27 13:43 | HHI.PR ---
Subjective Remarks The pt complained of swelling of the left side of his face. He said it hasn't happened before. He denies pain or shortness of breath. No other acute complaints. Discussed with nursing at the bedside. Objective Vitals Vital Signs Date Time Temp Pulse Resp B/P Pulse Ox O2 Delivery O2 Flow Rate FiO2 10/27/16 12:00 96.5 66 16 109/71 96 10/27/16 11:50 67 111/72 10/27/16 08:00 96.8 65 16 142/86 96 10/27/16 06:00 96.1 58 18 136/88 97 10/27/16 04:00 96.1 76 18 156/96 96 10/27/16 03:55 16 10/27/16 03:55 16 10/27/16 03:48 63 20 171/105 96 10/27/16 02:55 97.0 76 20 176/109 98 10/27/16 00:00 96.3 69 17 127/87 97 10/26/16 20:00 96.7 72 18 144/90 98 10/26/16 16:00 96.5 80 18 182/94 96 I/O 10/26/16 10/26/16 10/26/16 10/27/16 10/27/16 10/27/16 07:00 15:00 23:00 07:00 15:00 23:00 Intake Total 240 ml 2160 ml 720 ml 240 ml Balance 240 ml 2160 ml 720 ml 240 ml Intake Oral 240 ml 2160 ml 720 ml 240 ml # Voids 1 5 3 2 # Bowel Movements 1 1 1 Result Diagram: 10/24/16 0435 10/27/16 0653 Imaging Last Impressions Abdomen/Pelvis CT 10/25/16 0000 Signed Impressions: Service Date/Time: October 15:44 - CONCLUSION: 1. Mild inflammatory or edematous changes around the pancreas and also around the distal duodenum. Differential diagnosis includes mild pancreatitis and duodenitis. Findings are similar to October 21. 2. New subsegmental air space disease noted in the medial segment right middle lobe and right lower lobe. Joseph Dixon MD Chest X-Ray 10/21/16 [id number] Signed Impressions: Service Date/Time: Friday, October 21, 2016 19:10 - CONCLUSION: No acute cardiopulmonary abnormality is identified. Germán Odom MD Objective Remarks GENERAL: This is a well-nourished, well-developed patient, in no apparent distress. HEENT: Left lip and cheek swelling noted. No appreciable induration. Nontender to palpation. No sinus tenderness. The pt is edentulous. CARDIOVASCULAR: Regular rate and regular rhythm without murmurs, gallops, or rubs. RESPIRATORY: Clear to auscultation. Breath sounds equal bilaterally. No wheezes , rales, or rhonchi. GASTROINTESTINAL: Abdomen soft, mild epigastric tenderness, nondistended. MUSCULOSKELETAL: Extremities without clubbing, cyanosis, or edema. NEURO: Alert & Oriented x4 to person, place, time, situation. Moves all ext x4. PSYCH: Mood and affect appropriate. Procedures none Medications and IVs Current Medications Medications (Trade) Dose Ordered Sig/Fercho Route Start Time Stop Time Status Last Admin (NS Flush) 2 ml UNSCH PRN IV FLUSH 10/21/16 22:45 10/22/16 04:35 (NS Flush) 2 ml BID IV FLUSH 10/22/16 09:00 10/27/16 08:30 (Zofran Inj) 4 mg Q6H PRN IVP 10/21/16 22:45 (Tylenol) 650 mg Q6H PRN PO 10/21/16 22:45 (Roxicodone) 5 mg Q4H PRN PO 10/21/16 22:45 (Milk Of Magnesia Liq) 30 ml Q12H PRN PO 10/21/16 22:45 (Senokot) 17.2 mg Q12H PRN PO 10/21/16 22:45 (Dulcolax Supp) 10 mg DAILY PRN RECTAL 10/21/16 22:45 (Lactulose Liq) 30 ml DAILY PRN PO 10/21/16 22:45 (Vitamin B1) 100 mg DAILY PO 10/25/16 09:00 10/27/16 08:29 (Romazicon Inj) 0.2 mg Q1M PRN IV PUSH 10/21/16 22:45 (Ativan) 1 mg Q4H PRN PO 10/21/16 22:45 (Ativan Inj) 1 mg Q4H PRN IV PUSH 10/21/16 22:45 (Ativan) 2 mg Q2H PRN PO 10/21/16 22:45 (Ativan Inj) 2 mg Q2H PRN IV PUSH 10/21/16 22:45 (Ativan Inj) 2 mg Q1H PRN IV PUSH 10/21/16 22:45 (Ativan Inj) 2 mg Q15M PRN IV PUSH 10/21/16 22:45 (Haldol Inj) 2 mg Q15M PRN IM 10/21/16 22:45 (Roxicodone) 10 mg Q4H PRN PO 10/22/16 09:15 10/27/16 12:01 (Vasotec Inj) 1.25 mg Q6H PRN IV PUSH 10/23/16 03:00 10/27/16 03:53 (Dilaudid Pf Inj) 0.5 mg Q4H PRN IV PUSH 10/23/16 08:00 10/27/16 13:23 (Habitrol 21 Mg Patch.24 Hr) 1 patch DAILY T-DERMAL 10/24/16 17:00 10/27/16 08:30 Miscellaneous Information 1 HS T-DERMAL 10/24/16 21:00 10/26/16 20:55 (Catapres) 0.1 mg Q6H PRN PO 10/25/16 09:45 10/27/16 02:58 (Prinivil) 10 mg DAILY PO 10/25/16 09:45 10/27/16 08:29 (Protonix Inj) 40 mg Q24H IV PUSH 10/26/16 09:30 10/27/16 08:29 (Carafate Liq) 1 gm ACHS PO 10/27/16 16:00 (Benadryl Inj) 50 mg ONCE ONCE IV PUSH 10/27/16 13:45 10/27/16 13:46 UNV (SoluMEDROL INJ) 125 mg ONCE ONCE IV PUSH 10/27/16 13:45 10/27/16 13:46 UNV (Zantac Liq) 150 mg ONCE ONCE PO 10/27/16 13:45 10/27/16 13:46 UNV A/P Problem List: (1) Pancreatitis ICD Code: K85.90 Status: Acute (2) Duodenitis ICD Code: K29.80 Status: Acute (3) Bandemia ICD Code: D72.825 Status: Acute (4) Alcohol abuse ICD Code: F10.10 Status: Acute Assessment and Plan Angioedema Likely s/t lisinopril administration. No evidence of airway compromise. - d/c lisinopril, prn Vasotec. - IV Solumedrol, Benadryl, and PO ranitidine. Then start standing Benadryl and ranitidine. Epinephrine if needed. - monitor closely. Transfer to ICU if no improvement. Alcoholic Pancreatitis/ Duoedenitis CT Abd/Pelvis w/ mild inflammatory changes involving pancreatic head, second portion of duodenum and pancreaticoduodenal groove. GI consult appreciated. Repeat CT scan showed: Mild inflammatory or edematous changes around the pancreas and also around the distal duodenum. - continue with supportive care. Heart healthy diet per GI. - continue analgesics with a bowel regimen. - possible EGD on Saturday. Elevated LFT's Likely due to alcohol. HCV reactive. - follow LFTs, viral load. Alcohol Abuse With acute alcohol intoxication. - CIWA protocol, Seizure Precautions, MVT/Thiamine/Folate replacement. - counselled on drinking cessation. Thrombocytopenia Likely due to alcohol. - will monitor CBC as needed. HTN Likely due to the pain. Improved. - pain control. - clonidine prn. - lisinopril 10 mg daily started but d/c s/t angioedema. DVT Prophylaxis: SCD/Teds. Discharge Planning Awaiting clinical improvement Gary Cerrato DO Oct 27, 2016 13:43
[2016-10-27 13:53] LABS: HCV RNA PCR IU/ML 1130000 IU/mL (()); HCV RNA PCR LOGIU/ML 6.05 (())
[2016-10-27] MEDS ORDERED: FAMOTIDINE 20 MG TAB PO ONE (14:00)
[2016-10-27] MEDS ORDERED: diphenhydrAMINE HCL 50 MG/ML VIAL IV PUSH ONE ×2 (14:00→23:45)
[2016-10-27] MEDS ORDERED: methylPREDNISolone SOD SUCC 125 MG/2 ML VIAL IV PUSH ONE (14:00)
[2016-10-27] MEDS: SUCRALFATE 1 GM/10 ML CUP PO SCH ×2 (16:51→21:31)
[2016-10-27] MEDS: diphenhydrAMINE HCL 25 MG CAP PO SCH ×2 (16:51→21:37)
[2016-10-27] MEDS: REMOVE OLD NICODERM (NICOTINE) PATCH T-DERMAL SCH (21:00)
[2016-10-27] MEDS: SODIUM CHLOR 0.9% 1000 ML INJ 1,000 ML IV SCH (21:19)
[2016-10-27] MEDS: RANITIDINE HCL SYRUP 150 MG/10 ML UDC PO SCH (21:31)
[2016-10-27] MEDS ORDERED: EPINEPHrine HCL (1:1000) 1 MG/ML VIAL IM ONE (23:30)
[2016-10-27] MEDS ORDERED: EPINEPHrine HCL (1:10,000) 1 MG/10 ML SYRINGE ONE (23:37)
[2016-10-27] MEDS: methylPREDNISolone SOD SUCC 125 MG/2 ML VIAL IV PUSH SCH (23:50)
[2016-10-27 23:52] LABS: HEPATITIS C RNA GENOTYPE 1b (())
[2016-10-28] VITALS (19 sets, daily range): BP systolic 117–160; BP diastolic 67–97; PULSE 45–78; RESP 11–22; TEMP 96–98.1; O2SAT 94–100
[2016-10-28] MEDS ORDERED: MIDAZOLAM HCL 5 MG/ML VIAL (1 ML) IM ONE (00:15)
[2016-10-28] MEDS ORDERED: ROCURONIUM INJ 100 MG/10 ML VIAL IV ONE (00:15)
--- NOTE | 2016-10-28 00:38 | PD.CONS ---
HPI Service Critical Care Medicine Consult Requested By [facility] Reason for Consult Oral angioedema and upper airway obstruction Primary Care Physician No Primary Care Physician Review of Systems ROS Can't swallow, choking on secretions, numb in back of throat. Past Family Social History Allergies: Coded Allergies: Lisinopril (Verified Allergy, Severe, Angioedema, 10/27/16) *MDRO Multi-Drug Resistant Organism (Verified Adverse Reaction, Unknown, MRSA, 10/22/16) MRSA (arm)-08/21/16 Physical Exam Vital Signs Vital Signs Date Time Temp Pulse Resp B/P Pulse Ox O2 Delivery O2 Flow Rate FiO2 10/27/16 21:00 97.9 90 20 168/88 95 10/27/16 20:00 96.7 74 18 151/95 98 10/27/16 15:57 95.0 54 16 136/85 97 10/27/16 12:00 96.5 66 16 109/71 96 10/27/16 11:50 67 111/72 10/27/16 08:00 96.8 65 16 142/86 96 10/27/16 06:00 96.1 58 18 136/88 97 10/27/16 04:00 96.1 76 18 156/96 96 10/27/16 03:55 16 10/27/16 03:55 16 10/27/16 03:48 63 20 171/105 96 10/27/16 02:55 97.0 76 20 176/109 98 Physical Exam P 131, BP 225/117, R 18, sats 92% Head: Diffusely swollen face and lips. Mouth: Diffuse watery edema uvula, tonsils, hypopharynx. Neck: Supple, transmitted gurgling but moving air well. Lungs: Clear, no wheezes or crackles. Heart: Tachycardia. No M,r. No JVD. Abdomen: Benign, soft. Extremities: Warm, well perfused. Neuro: Anxious, O X 3. Speech garbled from secretions. Moves 4 limbs. Laboratory Laboratory Tests Test 10/27/16 10/27/16 06:53 21:00 Sodium Level 138 Potassium Level 3.7 Chloride Level 99 Carbon Dioxide Level 31.9 Anion Gap 7 Blood Urea Nitrogen 6 Creatinine 0.85 Estimat Glomerular Filtration 94 Rate Random Glucose 96 Calcium Level 9.5 Total Bilirubin 1.3 Aspartate Amino Transf 61 (AST/SGOT) Alanine Aminotransferase 75 (ALT/SGPT) Alkaline Phosphatase 50 Total Protein 7.2 Albumin 3.1 Nasal Screen MRSA (PCR) MRSA NOT DETECTED Result Diagram: 10/24/16 0435 10/27/16 0653 Assessment and Plan Assessment and Plan Assessment: 1. Angioedema (from new JULIAN-I) 2. Upper airway obstruction. 3. Acute pancreatitis. Plan: 1. Intubation for airway protection. 2. PRVC mode. 3. Pepcid. 4. Continue chemical DVT px. 5. Propofol sedation. 6. Daily SBT. 7. Enteral nutrition. Overall impression: Critically ill with acute upper airway obstruction from angioedema requiring intubation for airway control. Critical Care 47 mins ADDENDUM: Patient is sitting up in the bed on propofol. I reviewed the intubation note. Dr. Perez described diffuse watery edema hypopharyngeal tissue , cords normal. Diffuse facial edema. On my exam today patient had resolution of facial edema, tongue is not swollen and has a good cuff leak. His angioedema seems to have resolved with steroids and Benadryl and Zantac. patient extubated to [place]. No stridor post extubation Hal Perez MD Oct 28, 2016 00:38 Rekha Dunlap MD Oct 28, 2016 09:08
--- NOTE | 2016-10-28 00:47 | PD.PROCEDR ---
Procedure Note Procedure DX: Upper airway obstruction, angioedema OP: Orotracheal intubation (71471) Procedure: Bag mask ventilation after versed 5 mg iv. Easily ventilated. Rocuronium 100 mg iv, intubated orally with 8.0 tube. Position confirmed with CO2 detection, breath sounds, sats 100%. Diffuse watery edema hypopharyngeal tissue, cords normal. Diffuse facial edema. CXR ordered, will review. Hal Perez MD Oct 28, 2016 00:47
[2016-10-28] MEDS: PROPOFOL 1000 MG/100 ML INJ 100 ML IV SCH ×2 (01:13→04:35)
[2016-10-28 01:15] LABS: BLOOD GAS BASE EXCESS 0.3 mmol/L (-2-2); BLOOD GAS CARBOXYHEMOGLOBIN 1.7 % (0-4); BLOOD GAS HCO3 24 mmol/L (22-26); BLOOD GAS METHEMOGLOBIN 1.2 % (0-2); BLOOD GAS O2 HGB SATURATION 96 % (90-100); BLOOD GAS OXYGEN CONTENT 17.7 Vol % (12.0-20.0); BLOOD GAS PCO2 37 mmHg (38-42); BLOOD GAS PO2 126 mmHg (61-120); CRITICAL VALUE NO; DRAW SITE LT RADIAL; FIO2 40 %; NUMBER OF ARTERIAL PUNCTURES 1; OXYGEN DEVICE VENTILATOR; STAT NO; TEMP CORR TO 98.6; ULNAR PULSE PRESENT; VENT SETTINGS PRVC/AC
[2016-10-28] MEDS: SODIUM CHLOR 0.9% 1000 ML INJ 1,000 ML IV SCH ×3 (01:30→20:20)
--- NOTE | 2016-10-28 01:59 | RADRPT ---
EXAM DATE/TIME: 10/28/2016 00:56 [place] COMPARISON: CHEST SINGLE AP, October 21, 2016, 19:10. INDICATIONS : Endotracheal and orogastric tube placements. MEDICAL HISTORY : Pancreatitis. Duodenitis SURGICAL HISTORY : None. ENCOUNTER: Initial ACUITY: 2 days PAIN SCORE: Non-responsive. LOCATION: Bilateral chest FINDINGS: A single view of the chest demonstrates the lungs to be symmetrically aerated without evidence of mas s, infiltrate or effusion. Endotracheal tube 4 cm above the tonya. Nasogastric tube tip in stomach. The cardiomediastinal contours are unremarkable. Osseous structures are intact. CONCLUSION: No acute disease. Gamal Bravo MD on October 28, 2016 at 1:57 Board Certified Radiologist. This report was verified electronically.
[2016-10-28] MEDS: SUCRALFATE 1 GM/10 ML CUP PO SCH ×4 (06:19→20:00)
[2016-10-28] MEDS: diphenhydrAMINE HCL 25 MG CAP PO SCH ×4 (06:19→22:36)
[2016-10-28] MEDS: LORazepam 2 MG/ML VIAL IV PUSH PRN (06:51)
[2016-10-28] MEDS: CHLORHEXIDINE 0.12% (ORAL KIT) 15 ML CUP MT SCH ×2 (08:00→20:21)
[2016-10-28] MEDS: BENEPROTEIN POWDER 1 PACK G-TUBE SCH ×3 (08:52→17:22)
[2016-10-28] MEDS: SODIUM CHLORIDE 0.9% FLUSH 10 ML FLUSH IV FLUSH PRN ×2 (08:53→18:33)
[2016-10-28] MEDS: SODIUM CHLORIDE 0.9% FLUSH 10 ML FLUSH IV FLUSH SCH ×2 (08:53→19:59)
[2016-10-28] MEDS: methylPREDNISolone SOD SUCC 125 MG/2 ML VIAL IV PUSH SCH ×3 (08:53→20:00)
[2016-10-28] MEDS: HYDROmorphone HCL PF 1 MG/ML VIAL IV PUSH PRN ×4 (08:54→22:38)
[2016-10-28] MEDS: NICOTINE 21 MG/24 HR PATCH T-DERMAL SCH (08:55)
--- NOTE | 2016-10-28 09:21 | HHI.CCPN ---
Subjective Remarks/Hospital Course Can't swallow, choking on secretions, numb in back of throat. Patient was intubated for JULIAN inhibitor induced angioedema SUBJ 10/28: Patient is sitting up in the bed while on propofol, agitated but follows commands. Dr. Perez's intubation note described diffuse watery edema hypopharyngeal tissue, cords normal, and diffuse facial edema. On my exam today patient had resolution of facial edema, tongue is not swollen and has a good cuff leak. Angioedema seems to have resolved with steroids and Benadryl and Zantac. patient extubated to [place]. No stridor post extubation Objective Vital Signs Date Time Temp Pulse Resp B/P Pulse Ox O2 Delivery O2 Flow Rate FiO2 10/28/16 08:20 94 Room Air 21 10/28/16 04:00 96.0 52 14 128/87 Intake and Output 10/27/16 10/27/16 10/28/16 08:00 16:00 00:00 Intake Total 240 ml 840 ml 1200 ml Output Total 0 ml Balance 240 ml 840 ml 1200 ml Result Diagram: 10/24/16 0435 10/27/16 0653 Other Results Laboratory Tests Test 10/28/16 00:52 Blood Gas Puncture Site LT RADIAL Blood Gas Patient Temperature 98.6 Blood Gas HCO3 24 mmol/L (22-26) Blood Gas Base Excess 0.3 mmol/L (-2-2) Blood Gas Oxygen Saturation 96 % (90-100) Arterial Blood pH 7.43 (7.380-7.420) Arterial Blood Partial 37 mmHg (38-42) Pressure CO2 Arterial Blood Partial 126 mmHg Pressure O2 (61-120) Arterial Blood Oxygen Content 17.7 Vol % (12.0-20.0) Arterial Blood 1.7 % (0-4) Carboxyhemoglobin Arterial Blood Methemoglobin 1.2 % (0-2) Blood Gas Hemoglobin 13.0 G/DL (12.0-16.0) Oxygen Delivery Device VENTILATOR Blood Gas Ventilator Setting PRVC/AC Blood Gas Inspired Oxygen 40 % Objective Remarks HEENT: There is no swelling of the face or lips today as described in the admit H&P. No tongue swelling. Positive cuff leak Neck: Supple Lungs: Clear, no wheezes or crackles. Heart: Tachycardia. No M,r. No JVD. Abdomen: Benign, soft. Extremities: Warm, well perfused. Neuro: Intubated sedated with propofol wakes up easily follows commands Procedures none A/P Assessment and Plan Assessment: 1. Angioedema (from new JULIAN-I) 2. Upper airway obstruction. 3. Acute pancreatitis. 4. Alcohol intoxication on admission Plan: - Angioedema seems to have resolved clinically and patient has good cuff leak - Proceed with extubation - Continue IV steroids, Benadryl and Zantac - Continue opiates for pain - Continue chemical DVT px. - Continue with CIWA protocol for alcohol withdrawal Overall impression: Critically ill but improving angioedema. Possible extubation today Level 3 Rekha Dunlap MD Oct 28, 2016 09:21
[2016-10-28] MEDS: RANITIDINE HCL SYRUP 150 MG/10 ML UDC PO SCH ×2 (09:45→20:00)
[2016-10-28] MEDS: THIAMINE HCL 100 MG TAB PO SCH (09:45)
--- NOTE | 2016-10-28 13:52 | HHI.GIFU ---
Subjective Remarks Patient resting in bed, in no apparent distress. Continues to have epigastric pain. No nausea or vomiting. Reports stools are not as loose anymore. Patient was transferred to ICU yesterday due to JULIAN inhibitor induced angioedema. Subsequently intubated due to difficulty swallowing, was choking on secretions, and had numbness in the back of his throat. Patient now s/p extubation today, with no complications. (Kenia Copeland) Objective Vitals I&O Vital Signs Date Time Temp Pulse Resp B/P Pulse Ox O2 Delivery O2 Flow Rate FiO2 10/28/16 12:00 97.6 54 11 148/89 99 10/28/16 12:00 54 10/28/16 11:00 60 12 156/92 99 10/28/16 10:00 63 10/28/16 10:00 63 22 153/88 99 10/28/16 09:00 63 16 151/91 100 10/28/16 08:20 94 Room Air 21 10/28/16 08:11 99 35 10/28/16 08:00 97.7 45 14 130/85 100 10/28/16 08:00 46 10/28/16 07:00 51 14 122/86 100 10/28/16 04:53 100 40 10/28/16 04:00 96.0 52 14 128/87 100 10/28/16 00:30 99 40 10/28/16 00:00 98.1 67 16 160/97 99 10/27/16 21:00 97.9 90 20 168/88 95 10/27/16 20:00 96.7 74 18 151/95 98 10/27/16 15:57 95.0 54 16 136/85 97 I/O 10/27/16 10/27/16 10/27/16 10/28/16 10/28/16 10/28/16 07:00 15:00 23:00 07:00 15:00 23:00 Intake Total 240 ml 840 ml 1200 ml 1509 ml Output Total 0 ml 850 ml Balance 240 ml 840 ml 1200 ml 659 ml Intake Oral 240 ml 840 ml 1100 ml 100 ml IV Total 100 ml 1409 ml Output Urine Total 0 ml 850 ml # Voids 2 5 1 # Bowel Movements 0 0 Laboratory Laboratory Tests Test 10/27/16 10/28/16 21:00 00:52 Nasal Screen MRSA (PCR) MRSA NOT DETECTED Blood Gas Puncture Site LT RADIAL Blood Gas Patient Temperature 98.6 Blood Gas HCO3 24 Blood Gas Base Excess 0.3 Blood Gas Oxygen Saturation 96 Arterial Blood pH 7.43 Arterial Blood Partial 37 Pressure CO2 Arterial Blood Partial 126 Pressure O2 Arterial Blood Oxygen Content 17.7 Arterial Blood 1.7 Carboxyhemoglobin Arterial Blood Methemoglobin 1.2 Blood Gas Hemoglobin 13.0 Oxygen Delivery Device VENTILATOR Blood Gas Ventilator Setting PRVC/AC Blood Gas Inspired Oxygen 40 Imaging Last Impressions Chest X-Ray 10/28/16 0000 Signed Impressions: Service Date/Time: Friday, October 28, 2016 00:56 - CONCLUSION: No acute disease. Gamal Bravo MD Abdomen/Pelvis CT 10/25/16 0000 Signed Impressions: Service Date/Time: October 15:44 - CONCLUSION: 1. Mild inflammatory or edematous changes around the pancreas and also around the distal duodenum. Differential diagnosis includes mild pancreatitis and duodenitis. Findings are similar to October 21. 2. New subsegmental air space disease noted in the medial segment right middle lobe and right lower lobe. Joseph Dixon MD Physical Exam HEENT: Normocephalic; atraumatic; no jaundice. CHEST: CTA CARDIAC: RRR ABDOMEN: Abdomen soft, epigastric tenderness, bowel sounds are present x 4 quadrants. EXTREMITIES: No clubbing, cyanosis, or edema. SKIN: Normal; no rash; no jaundice. 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 (Kenia Copeland) Assessment and Plan Plan ASSESSMENT - Acute pancreatitis with hx pancreatic cyts, ETOH abuse. Abdomen/Pelvis CT ()----> 1. Mild inflammatory or edematous changes around the pancreas and also around the distal duodenum. Differential diagnosis includes mild pancreatitis and duodenitis. Findings are similar to October 21. 2. New subsegmental air space disease noted in the medial segment right middle lobe and right lower lobe. Lipase normalized. Appears comfortable, but c/o that he is still having epigastric pain- states no improvement. Tolerated low aft diet. PPI was added for his duodenitis, no improvement. Will add carafate. Plan for EGD Saturday. - Abnormal LFTs. CT as above. Hep c AB reactive T. Bili 1.3, AST 61, ALT 75, Alk Phosph 50 (10/27) - HCV Ab (+). HCV RNA Genotype 1b. HCV RNA (PCR) [id number]. PLAN - EGD Saturday - NPO after MN - Obtain consents - Low fat diet - Cont. PPI - Continue Carafate - ETOH cessation - Supportive care Patient seen by myself and Dr Leon and this note is written on his behalf ( Kenia Copeland) Physician Comments patient was seen and examined, agree with above note and plan, EGD Saturday, Hep C treatement as outpatient (Florinda Leon MD) Kenia Copeland Oct 28, 2016 13:52 Florinda Leon MD Oct 28, 2016 14:22
[2016-10-28] MEDS: REMOVE OLD NICODERM (NICOTINE) PATCH T-DERMAL SCH (20:21)
[2016-10-28] MEDS: cloNIDine HCL 0.1 MG TAB PO PRN (23:32)
[2016-10-29] VITALS (12 sets, daily range): BP systolic 140–184; BP diastolic 79–96; PULSE 50–86; RESP 13–20; TEMP 97.4–98.4; O2SAT 97–100
[2016-10-29] MEDS: LORazepam 2 MG/ML VIAL IV PUSH PRN (02:19)
[2016-10-29] MEDS: HYDROmorphone HCL PF 1 MG/ML VIAL IV PUSH PRN ×4 (03:35→23:39)
[2016-10-29] MEDS: methylPREDNISolone SOD SUCC 125 MG/2 ML VIAL IV PUSH SCH ×2 (03:48→07:49)
[2016-10-29] MEDS: SUCRALFATE 1 GM/10 ML CUP PO SCH ×4 (05:02→21:33)
[2016-10-29] MEDS: SODIUM CHLOR 0.9% 1000 ML INJ 1,000 ML IV SCH (05:02)
[2016-10-29] MEDS: cloNIDine HCL 0.1 MG TAB PO PRN (06:42)
[2016-10-29] MEDS: CHLORHEXIDINE 0.12% (ORAL KIT) 15 ML CUP MT SCH ×2 (07:47→20:00)
[2016-10-29] MEDS: SODIUM CHLORIDE 0.9% FLUSH 10 ML FLUSH IV FLUSH SCH ×2 (07:48→21:35)
[2016-10-29] MEDS: BENEPROTEIN POWDER 1 PACK G-TUBE SCH ×3 (07:48→17:04)
[2016-10-29] MEDS: THIAMINE HCL 100 MG TAB PO SCH (07:49)
[2016-10-29] MEDS: NICOTINE 21 MG/24 HR PATCH T-DERMAL SCH (07:50)
[2016-10-29] MEDS: RANITIDINE HCL SYRUP 150 MG/10 ML UDC PO SCH ×2 (07:50→22:55)
[2016-10-29] MEDS: hydrALAZINE HCL 20 MG/ML VIAL IV PRN ×2 (07:51→11:24)
[2016-10-29] MEDS ORDERED: POTASSIUM CHLORIDE 25 MEQ EFFERVESCENT TAB PO ONE (09:00)
[2016-10-29] MEDS: HYDROCHLOROTHIAZIDE 25 MG TAB PO SCH (09:23)
--- NOTE | 2016-10-29 09:39 | HHI.PR ---
Subjective Remarks The patient was confused about when he was intubated. He thought it was last night then he remembered it was the night before. He has no complaints at this time. Eating well. Still has epigastric pain. Discussed with nursing. Objective Vitals Vital Signs Date Time Temp Pulse Resp B/P Pulse Ox O2 Delivery O2 Flow Rate FiO2 10/29/16 07:22 100 21 10/29/16 06:00 51 10/29/16 05:38 16 10/29/16 04:05 16 10/29/16 04:00 51 10/29/16 04:00 98.1 51 13 184/95 99 10/29/16 02:00 52 10/29/16 00:00 60 10/29/16 00:00 98.0 60 15 156/89 99 10/28/16 22:00 57 10/28/16 20:00 98.0 70 14 151/81 98 10/28/16 20:00 70 10/28/16 18:00 71 10/28/16 16:00 97.7 54 11 150/80 96 10/28/16 16:00 54 10/28/16 15:00 60 12 124/85 97 10/28/16 14:00 58 10/28/16 14:00 69 21 117/67 98 10/28/16 13:00 78 18 151/96 96 10/28/16 12:00 97.6 54 11 148/89 99 10/28/16 12:00 54 10/28/16 11:00 60 12 156/92 99 10/28/16 10:00 63 10/28/16 10:00 63 22 153/88 99 I/O 10/28/16 10/28/16 10/28/16 10/29/16 10/29/16 10/29/16 07:00 15:00 23:00 07:00 15:00 23:00 Intake Total 1509 ml 1391 ml 2147 ml 1300 ml Output Total 850 ml 2600 ml 2050 ml 1600 ml Balance 659 ml -1209 ml 97 ml -300 ml Intake Oral 100 ml 666 ml 1444 ml 500 ml IV Total 1409 ml 725 ml 703 ml 800 ml Output Urine Total 850 ml 2600 ml 2050 ml 1600 ml Stool Total 0 ml # Voids 1 3 # Bowel Movements 0 0 0 1 Result Diagram: 10/27/16 0653 Imaging Last Impressions Chest X-Ray 10/28/16 0000 Signed Impressions: Service Date/Time: Friday, October 28, 2016 00:56 - CONCLUSION: No acute disease. Gamal Bravo MD Abdomen/Pelvis CT 10/25/16 0000 Signed Impressions: Service Date/Time: October 15:44 - CONCLUSION: 1. Mild inflammatory or edematous changes around the pancreas and also around the distal duodenum. Differential diagnosis includes mild pancreatitis and duodenitis. Findings are similar to October 21. 2. New subsegmental air space disease noted in the medial segment right middle lobe and right lower lobe. Joseph Dixon MD Objective Remarks GENERAL: This is a well-nourished, well-developed patient, in no apparent distress. HEENT: Residual swelling noted around the eyes. The pt is edentulous. CARDIOVASCULAR: Regular rate and regular rhythm without murmurs, gallops, or rubs. RESPIRATORY: Clear to auscultation. Breath sounds equal bilaterally. No wheezes , rales, or rhonchi. GASTROINTESTINAL: Abdomen soft, mild epigastric tenderness, nondistended. MUSCULOSKELETAL: Extremities without clubbing, cyanosis, or edema. NEURO: Alert & Oriented x4 to person, place, time, situation. Moves all ext x4. PSYCH: Mood and affect appropriate. Procedures none Medications and IVs Current Medications Medications (Trade) Dose Ordered Sig/Fercho Route Start Time Stop Time Status Last Admin (NS Flush) 2 ml UNSCH PRN IV FLUSH 10/21/16 22:45 10/28/16 18:33 (NS Flush) 2 ml BID IV FLUSH 10/22/16 09:00 10/29/16 07:48 (Zofran Inj) 4 mg Q6H PRN IVP 10/21/16 22:45 10/27/16 21:37 (Tylenol) 650 mg Q6H PRN PO 10/21/16 22:45 (Roxicodone) 5 mg Q4H PRN PO 10/21/16 22:45 (Milk Of Magnesia Liq) 30 ml Q12H PRN PO 10/21/16 22:45 (Senokot) 17.2 mg Q12H PRN PO 10/21/16 22:45 10/28/16 06:19 (Dulcolax Supp) 10 mg DAILY PRN RECTAL 10/21/16 22:45 (Lactulose Liq) 30 ml DAILY PRN PO 10/21/16 22:45 (Vitamin B1) 100 mg DAILY PO 10/25/16 09:00 10/29/16 07:49 (Romazicon Inj) 0.2 mg Q1M PRN IV PUSH 10/21/16 22:45 (Ativan) 1 mg Q4H PRN PO 10/21/16 22:45 10/27/16 21:31 (Ativan Inj) 1 mg Q4H PRN IV PUSH 10/21/16 22:45 10/29/16 02:19 (Ativan) 2 mg Q2H PRN PO 10/21/16 22:45 (Ativan Inj) 2 mg Q2H PRN IV PUSH 10/21/16 22:45 (Ativan Inj) 2 mg Q1H PRN IV PUSH 10/21/16 22:45 (Ativan Inj) 2 mg Q15M PRN IV PUSH 10/21/16 22:45 (Haldol Inj) 2 mg Q15M PRN IM 10/21/16 22:45 (Roxicodone) 10 mg Q4H PRN PO 10/22/16 09:15 10/29/16 07:50 (Dilaudid Pf Inj) 0.5 mg Q4H PRN IV PUSH 10/23/16 08:00 10/29/16 08:31 (Habitrol 21 Mg Patch.24 Hr) 1 patch DAILY T-DERMAL 10/24/16 17:00 10/29/16 07:50 Miscellaneous Information 1 HS T-DERMAL 10/24/16 21:00 10/26/16 20:55 (Catapres) 0.1 mg Q6H PRN PO 10/25/16 09:45 10/29/16 06:42 (Carafate Liq) 1 gm ACHS PO 10/27/16 16:00 10/29/16 05:02 Ranitidine HCl 150 mg 150 mg Q12HR PO 10/27/16 21:00 10/29/16 07:50 (NS 1000 ml Inj) 1,000 ml @ 100 mls/hr Q10H IV 10/27/16 18:45 10/29/16 05:02 Chlorhexidine Gluconate 15 ml 15 ml BID@08,20 MT 10/28/16 08:00 10/28/16 20:21 (Diprivan 1000 Mg/100ml Inj) 100 ml @ 0 mls/hr TITRATE IV 10/28/16 00:15 10/28/16 04:35 (Beneprotein Powder) 1 pack TID G-TUBE 10/28/16 09:00 (fentaNYL INJ) 50 mcg Q1H PRN IV PUSH 10/28/16 00:45 10/28/16 11:14 (Apresoline Inj) 10 mg Q4HR PRN IV 10/29/16 07:45 10/29/16 07:51 (Hydrodiuril) 25 mg DAILY PO 10/29/16 09:00 10/29/16 09:23 (Deltasone) 20 mg DAILY PO 10/30/16 09:00 A/P Problem List: (1) Pancreatitis ICD Code: K85.90 Status: Acute (2) Duodenitis ICD Code: K29.80 Status: Acute (3) Bandemia ICD Code: D72.825 Status: Acute (4) Alcohol abuse ICD Code: F10.10 Status: Acute Assessment and Plan Angioedema Likely s/t lisinopril administration. S/p intubation and extubation shortly thereafter. Currently doing well. - d/c lisinopril and prn Vasotec. Add to allergy list. - S/p IV Solumedrol, Benadryl and epinephrine. Continue prednisone, Benadryl and ranitidine. Alcoholic Pancreatitis/ Duoedenitis CT Abd/Pelvis w/ mild inflammatory changes involving pancreatic head, second portion of duodenum and pancreaticoduodenal groove. GI consult appreciated. Repeat CT scan showed: Mild inflammatory or edematous changes around the pancreas and also around the distal duodenum. - continue with supportive care. Heart healthy diet per GI. - continue analgesics with a bowel regimen. - possible EGD in AM. Delayed s/t angioedema. Elevated LFT's Likely due to alcohol. HCV reactive. - follow LFTs. Alcohol Abuse With acute alcohol intoxication. - CIWA protocol, Seizure Precautions, MVT/Thiamine/Folate replacement. - counselled on drinking cessation. Thrombocytopenia Likely due to alcohol. - will monitor CBC as needed. HTN Poorly controlled at this time, requiring IV hydralazine 10/29. - pain control. - clonidine prn. - lisinopril 10 mg daily started but d/c s/t angioedema. - start HCTZ 25 mg daily and monitor. DVT Prophylaxis: SCD/Teds. Discharge Planning Transfer to floor Gary Cerrato DO Oct 29, 2016 09:39
[2016-10-29 13:37] LABS: MEAN CELL VOLUME 97.5 FL (80.0-100.0); MEAN CORPUSCULAR HEMOGLOBIN 32.6 PG (27.0-34.0); MEAN CORPUSCULAR HGB CONC 33.4 % (32.0-36.0); PLATELET COUNT 222 TH/MM3 (150-450); RED CELL DISTRIBUTION WIDTH 15.1 % (11.6-17.2); REVIEW FLAG FINAL; WHITE BLOOD COUNT 9.8 TH/MM3 (4.0-11.0)
[2016-10-29 14:06] LABS: ANION GAP 5 MEQ/L (5-15); AST (GOT) 20 U/L (15-37); BICARBONATE 30.5 MEQ/L (21.0-32.0); BLOOD UREA NITROGEN 15 MG/DL (7-18); CHLORIDE 101 MEQ/L (98-107); GLOMERULAR FILTRATION RATE 90 ML/MIN (>89); MAGNESIUM 1.9 MG/DL (1.5-2.5); SODIUM (NA) 136 MEQ/L (136-145)
[2016-10-29 14:07] LABS: ALT (GPT) 54 U/L (12-78)
[2016-10-29 14:09] LABS: ALKALINE PHOSPHATASE 50 U/L (45-117); TOTAL BILIRUBIN ADULT 0.6 MG/DL (0.2-1.0)
[2016-10-29] MEDS ORDERED: SODIUM PHOSPHATE INJ 30 MMOL in SODIUM CHLOR 0.9% 250 ML INJ 250 ML IV ONE (15:00)
--- NOTE | 2016-10-29 15:23 | HHI.GIFU ---
Subjective Remarks Resting in bed. Continues to have abdominal pain- worse after eating. Denies nausea, vomiting. Objective Vitals I&O Vital Signs Date Time Temp Pulse Resp B/P Pulse Ox O2 Delivery O2 Flow Rate FiO2 10/29/16 14:00 70 10/29/16 12:00 60 10/29/16 12:00 97.7 60 14 146/80 98 10/29/16 10:00 55 10/29/16 08:00 97.7 50 14 171/96 99 10/29/16 08:00 50 10/29/16 07:22 100 21 10/29/16 06:00 51 10/29/16 05:38 16 10/29/16 04:05 16 10/29/16 04:00 51 10/29/16 04:00 98.1 51 13 184/95 99 10/29/16 02:00 52 10/29/16 00:00 60 10/29/16 00:00 98.0 60 15 156/89 99 10/28/16 22:00 57 10/28/16 20:00 98.0 70 14 151/81 98 10/28/16 20:00 70 10/28/16 18:00 71 10/28/16 16:00 97.7 54 11 150/80 96 10/28/16 16:00 54 I/O 10/28/16 10/28/16 10/28/16 10/29/16 10/29/16 10/29/16 07:00 15:00 23:00 07:00 15:00 23:00 Intake Total 1509 ml 1391 ml 2147 ml 1300 ml 820 ml Output Total 850 ml 2600 ml 2050 ml 1600 ml 1400 ml Balance 659 ml -1209 ml 97 ml -300 ml -580 ml Intake Oral 100 ml 666 ml 1444 ml 500 ml 720 ml IV Total 1409 ml 725 ml 703 ml 800 ml 100 ml Output Urine Total 850 ml 2600 ml 2050 ml 1600 ml 1400 ml Stool Total 0 ml # Voids 1 3 # Bowel Movements 0 0 0 1 0 Laboratory Laboratory Tests Test 10/29/16 13:25 White Blood Count 9.8 Red Blood Count 4.20 Hemoglobin 13.7 Hematocrit 41.0 Mean Corpuscular Volume 97.5 Mean Corpuscular Hemoglobin 32.6 Mean Corpuscular Hemoglobin 33.4 Concent Red Cell Distribution Width 15.1 Platelet Count 222 Mean Platelet Volume 7.1 Sodium Level 136 Potassium Level 4.0 Chloride Level 101 Carbon Dioxide Level 30.5 Anion Gap 5 Blood Urea Nitrogen 15 Creatinine 0.88 Estimat Glomerular Filtration 90 Rate Random Glucose 132 Calcium Level 9.7 Phosphorus Level 2.2 Magnesium Level 1.9 Total Bilirubin 0.6 Aspartate Amino Transf 20 (AST/SGOT) Alanine Aminotransferase 54 (ALT/SGPT) Alkaline Phosphatase 50 Total Protein 8.0 Albumin 3.5 Imaging Last Impressions Chest X-Ray 10/28/16 0000 Signed Impressions: Service Date/Time: Friday, October 28, 2016 00:56 - CONCLUSION: No acute disease. Gamal Bravo MD Abdomen/Pelvis CT 10/25/16 0000 Signed Impressions: Service Date/Time: October 15:44 - CONCLUSION: 1. Mild inflammatory or edematous changes around the pancreas and also around the distal duodenum. Differential diagnosis includes mild pancreatitis and duodenitis. Findings are similar to October 21. 2. New subsegmental air space disease noted in the medial segment right middle lobe and right lower lobe. Joseph Dixon MD Physical Exam HEENT: Normocephalic; atraumatic; no jaundice. CHEST: CTA CARDIAC: RRR ABDOMEN: Abdomen soft, mildly bloated, epigastric tenderness, bowel sounds are present x 4 quadrants. EXTREMITIES: No clubbing, cyanosis, or edema. SKIN: Normal; no rash; no jaundice. 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 Assessment and Plan Plan ASSESSMENT - Acute pancreatitis with hx pancreatic cyts, ETOH abuse. Abdomen/Pelvis CT ()----> 1. Mild inflammatory or edematous changes around the pancreas and also around the distal duodenum. Differential diagnosis includes mild pancreatitis and duodenitis. Findings are similar to October 21. 2. New subsegmental air space disease noted in the medial segment right middle lobe and right lower lobe. Lipase normalized. Continues to have abdominal pain, worse after eating despite PPI/Carafate. PPI changed to Ranitidine per attending. Plan for egd tomorrow. - Abnormal LFTs. CT as above. Hep C, LFTs stable, T> Bili 0.6, AST 20, ALT 54 , Alk Phosph 50. - HCV Ab (+). HCV RNA Genotype 1b. HCV RNA (PCR) [id number]. - Angioedema secondary to bernarda inhibitor, improved. Extubated on r/a. No respiratory distress. PLAN - Plan for EGD tomorrow - Obtain consents - NPO after MN - Obtain consents - Low fat diet - Cont. Ranitidine - Continue Carafate - ETOH cessation - Supportive care - Patient seen by myself and Dr Godfrey and this note is written on his behalf Phuong Prieto Oct 29, 2016 15:23
[2016-10-29] MEDS: REMOVE OLD NICODERM (NICOTINE) PATCH T-DERMAL SCH (21:00)
[2016-10-30] VITALS: BP 166/97; PULSE 90; RESP 19; TEMP 97.3; O2SAT 97
[2016-10-30 04:00] VITALS: BP 131/85; PULSE 58; RESP 17; TEMP 97.7; O2SAT 96
[2016-10-30] MEDS: HYDROmorphone HCL PF 1 MG/ML VIAL IV PUSH PRN ×3 (04:21→12:57)
[2016-10-30] MEDS: SUCRALFATE 1 GM/10 ML CUP PO SCH ×4 (06:23→20:28)
[2016-10-30] MEDS: BENEPROTEIN POWDER 1 PACK G-TUBE SCH ×3 (07:43→16:32)
[2016-10-30] MEDS: CHLORHEXIDINE 0.12% (ORAL KIT) 15 ML CUP MT SCH ×2 (07:43→20:00)
[2016-10-30 08:00] VITALS: BP 127/74; PULSE 69; RESP 18; TEMP 98.2; O2SAT 97
[2016-10-30] MEDS: THIAMINE HCL 100 MG TAB PO SCH (08:46)
[2016-10-30] MEDS: RANITIDINE HCL SYRUP 150 MG/10 ML UDC PO SCH ×2 (08:46→20:28)
[2016-10-30] MEDS: SODIUM CHLORIDE 0.9% FLUSH 10 ML FLUSH IV FLUSH SCH ×2 (08:46→20:28)
[2016-10-30] MEDS: NICOTINE 21 MG/24 HR PATCH T-DERMAL SCH (08:46)
[2016-10-30] MEDS: HYDROCHLOROTHIAZIDE 25 MG TAB PO SCH (08:46)
[2016-10-30] MEDS: predniSONE 20 MG TAB PO SCH (08:46)
--- NOTE | 2016-10-30 10:02 | HHI.GIFU ---
Subjective Remarks Immediate post procedure note: EGD with biopsy Indication: abdominal pain, pancreatitis, possible duodenitis Meds: MAC Findings: Esophagus bits of food in mid to distal esophagus. No stricture appreciated Stomach: Moderate retained food consistent with gastroparesis Mild gastritis. biopsy taken. in antrum Pylorus open Duodenum: normal, no duodenitis. Objective Vitals I&O Vital Signs Date Time Temp Pulse Resp B/P Pulse Ox O2 Delivery O2 Flow Rate FiO2 10/30/16 08:00 98.2 69 18 127/74 97 10/30/16 04:00 97.7 58 17 131/85 96 10/30/16 00:00 97.3 90 19 166/97 97 10/29/16 20:00 97.7 81 18 156/92 97 10/29/16 17:35 97.4 86 20 156/90 98 10/29/16 16:00 58 10/29/16 16:00 98.4 58 16 140/79 98 10/29/16 14:00 70 10/29/16 12:00 60 10/29/16 12:00 97.7 60 14 146/80 98 10/29/16 10:00 55 I/O 10/29/16 10/29/16 10/29/16 10/30/16 10/30/16 10/30/16 06:59 14:59 22:59 06:59 14:59 22:59 Intake Total 1300 ml 820 ml 480 ml 420 ml Output Total 1600 ml 1400 ml 1100 ml Balance -300 ml -580 ml -620 ml 420 ml Intake Oral 500 ml 720 ml 480 ml 0 ml IV Total 800 ml 100 ml 420 ml Output Urine Total 1600 ml 1400 ml 1100 ml # Voids 1 2 # Bowel Movements 1 0 1 0 Laboratory Laboratory Tests Test 10/29/16 13:25 White Blood Count 9.8 Red Blood Count 4.20 Hemoglobin 13.7 Hematocrit 41.0 Mean Corpuscular Volume 97.5 Mean Corpuscular Hemoglobin 32.6 Mean Corpuscular Hemoglobin 33.4 Concent Red Cell Distribution Width 15.1 Platelet Count 222 Mean Platelet Volume 7.1 Sodium Level 136 Potassium Level 4.0 Chloride Level 101 Carbon Dioxide Level 30.5 Anion Gap 5 Blood Urea Nitrogen 15 Creatinine 0.88 Estimat Glomerular Filtration 90 Rate Random Glucose 132 Calcium Level 9.7 Phosphorus Level 2.2 Magnesium Level 1.9 Total Bilirubin 0.6 Aspartate Amino Transf 20 (AST/SGOT) Alanine Aminotransferase 54 (ALT/SGPT) Alkaline Phosphatase 50 Total Protein 8.0 Albumin 3.5 Physical Exam HEENT: Normocephalic; atraumatic; no jaundice. CHEST: CTA CARDIAC: RRR ABDOMEN: Abdomen soft, mildly bloated, epigastric tenderness, bowel sounds are present x 4 quadrants. EXTREMITIES: No clubbing, cyanosis, or edema. SKIN: Normal; no rash; no jaundice. 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 Assessment and Plan Plan ASSESSMENT - Acute pancreatitis with hx pancreatic cyts, ETOH abuse. Abdomen/Pelvis CT ()----> 1. Mild inflammatory or edematous changes around the pancreas and also around the distal duodenum. Differential diagnosis includes mild pancreatitis and duodenitis. Findings are similar to October 21. 2. New subsegmental air space disease noted in the medial segment right middle lobe and right lower lobe. Lipase normalized. Continues to have abdominal pain, worse after eating despite PPI/Carafate. PPI changed to Ranitidine per attending. Plan for egd tomorrow. - Abnormal LFTs. CT as above. Hep C, LFTs stable, T> Bili 0.6, AST 20, ALT 54 , Alk Phosph 50. - HCV Ab (+). HCV RNA Genotype 1b. HCV RNA (PCR) [id number]. - Angioedema secondary to bernarda inhibitor, improved. Extubated on r/a. No respiratory distress. - EGD shows mild gastritis and moderate gastroparesis. PLAN - Reglan - gastroparesis diet, full liquid - Cont. Ranitidine - Continue Carafate - ETOH cessation - Supportive care Aníbal Godfrey MD Oct 30, 2016 10:01
[2016-10-30] MEDS ORDERED: PROPOFOL 200 MG/20 ML AMP IV ONE (10:03)
[2016-10-30 12:00] VITALS: BP 141/90; PULSE 59; RESP 18; TEMP 98.4; O2SAT 96
[2016-10-30] MEDS: METOCLOPRAMIDE HCL 10 MG/2 ML VIAL IV PUSH SCH ×2 (13:00→20:28)
[2016-10-30] MEDS ORDERED: PILL SPLITTER OTHER PRN (14:00)
--- NOTE | 2016-10-30 14:13 | HHI.PR ---
Subjective Remarks The patient was resting in bed comfortably. He said he still had abdominal pain. He said the procedure was quick. She had questions about his thyroid because he has not been taking his medication. Objective Vitals Vital Signs Date Time Temp Pulse Resp B/P Pulse Ox O2 Delivery O2 Flow Rate FiO2 10/30/16 10:16 60 18 100/67 93 10/30/16 10:06 69 18 99/67 93 10/30/16 09:56 97.7 69 18 102/68 93 10/30/16 08:00 98.2 69 18 127/74 97 10/30/16 04:00 97.7 58 17 131/85 96 10/30/16 00:00 97.3 90 19 166/97 97 10/29/16 20:00 97.7 81 18 156/92 97 10/29/16 17:35 97.4 86 20 156/90 98 10/29/16 16:00 58 10/29/16 16:00 98.4 58 16 140/79 98 I/O 10/29/16 10/29/16 10/29/16 10/30/16 10/30/16 10/30/16 07:00 15:00 23:00 07:00 15:00 23:00 Intake Total 1300 ml 820 ml 480 ml 420 ml 100 ml Output Total 1600 ml 1400 ml 1100 ml Balance -300 ml -580 ml -620 ml 420 ml 100 ml Intake Oral 500 ml 720 ml 480 ml 0 ml IV Total 800 ml 100 ml 420 ml Other 100 ml Output Urine Total 1600 ml 1400 ml 1100 ml # Voids 1 2 # Bowel Movements 1 0 1 0 Result Diagram: 10/29/16 1325 10/29/16 1325 Objective Remarks GENERAL: This is a well-nourished, well-developed patient, in no apparent distress. HEENT: Residual swelling noted around the eyes. The pt is edentulous. CARDIOVASCULAR: Regular rate and regular rhythm without murmurs, gallops, or rubs. RESPIRATORY: Clear to auscultation. Breath sounds equal bilaterally. No wheezes , rales, or rhonchi. GASTROINTESTINAL: Abdomen soft, mild epigastric tenderness, nondistended. MUSCULOSKELETAL: Extremities without clubbing, cyanosis, or edema. NEURO: Alert & Oriented x4 to person, place, time, situation. Moves all ext x4. PSYCH: Mood and affect appropriate. Procedures EGD 10/30 Medications and IVs Current Medications Medications (Trade) Dose Ordered Sig/Fercho Route Start Time Stop Time Status Last Admin (NS Flush) 2 ml UNSCH PRN IV FLUSH 10/21/16 22:45 10/28/16 18:33 (NS Flush) 2 ml BID IV FLUSH 10/22/16 09:00 10/30/16 08:46 (Zofran Inj) 4 mg Q6H PRN IVP 10/21/16 22:45 10/27/16 21:37 (Tylenol) 650 mg Q6H PRN PO 10/21/16 22:45 (Roxicodone) 5 mg Q4H PRN PO 10/21/16 22:45 (Milk Of Magnesia Liq) 30 ml Q12H PRN PO 10/21/16 22:45 (Senokot) 17.2 mg Q12H PRN PO 10/21/16 22:45 10/28/16 06:19 (Dulcolax Supp) 10 mg DAILY PRN RECTAL 10/21/16 22:45 (Lactulose Liq) 30 ml DAILY PRN PO 10/21/16 22:45 (Vitamin B1) 100 mg DAILY PO 10/25/16 09:00 10/30/16 08:46 (Romazicon Inj) 0.2 mg Q1M PRN IV PUSH 10/21/16 22:45 (Ativan) 1 mg Q4H PRN PO 10/21/16 22:45 10/27/16 21:31 (Ativan Inj) 1 mg Q4H PRN IV PUSH 10/21/16 22:45 10/29/16 02:19 (Ativan) 2 mg Q2H PRN PO 10/21/16 22:45 (Ativan Inj) 2 mg Q2H PRN IV PUSH 10/21/16 22:45 (Ativan Inj) 2 mg Q1H PRN IV PUSH 10/21/16 22:45 (Ativan Inj) 2 mg Q15M PRN IV PUSH 10/21/16 22:45 (Haldol Inj) 2 mg Q15M PRN IM 10/21/16 22:45 (Roxicodone) 10 mg Q4H PRN PO 10/22/16 09:15 10/30/16 11:02 (Dilaudid Pf Inj) 0.5 mg Q4H PRN IV PUSH 10/23/16 08:00 10/30/16 12:57 (Habitrol 21 Mg Patch.24 Hr) 1 patch DAILY T-DERMAL 10/24/16 17:00 10/30/16 08:46 Miscellaneous Information 1 HS T-DERMAL 10/24/16 21:00 10/29/16 21:00 (Catapres) 0.1 mg Q6H PRN PO 10/25/16 09:45 10/29/16 06:42 (Carafate Liq) 1 gm ACHS PO 10/27/16 16:00 10/30/16 11:27 (Zantac Liq) 150 mg Q12HR PO 10/27/16 21:00 10/30/16 08:46 (Peridex 0.12% Liq) 15 ml BID@08,20 MT 10/28/16 08:00 10/30/16 07:43 (Beneprotein Powder) 1 pack TID G-TUBE 10/28/16 09:00 (fentaNYL INJ) 50 mcg Q1H PRN IV PUSH 10/28/16 00:45 10/28/16 11:14 (Apresoline Inj) 10 mg Q4HR PRN IV 10/29/16 07:45 10/29/16 11:24 (Deltasone) 20 mg DAILY PO 10/30/16 09:00 10/30/16 08:46 (Reglan Inj) 10 mg Q8HR IV PUSH 10/30/16 14:00 10/30/16 13:00 (Hydrodiuril) 12.5 mg DAILY PO 10/31/16 09:00 (Pill Splitter) 1 ea UNSCH PRN OTHER 10/30/16 14:00 A/P Problem List: (1) Pancreatitis ICD Code: K85.90 Status: Acute (2) Duodenitis ICD Code: K29.80 Status: Acute (3) Bandemia ICD Code: D72.825 Status: Acute (4) Alcohol abuse ICD Code: F10.10 Status: Acute Assessment and Plan Angioedema Likely s/t lisinopril administration. S/p intubation and extubation shortly thereafter. Currently doing well. - d/c lisinopril and prn Vasotec. Add to allergy list. - S/p IV Solumedrol, Benadryl and epinephrine. Continue prednisone, Benadryl and ranitidine. Alcoholic Pancreatitis/ Duoedenitis/ Gastroparesis CT Abd/Pelvis w/ mild inflammatory changes involving pancreatic head, second portion of duodenum and pancreaticoduodenal groove. GI consult appreciated. Repeat CT scan showed: Mild inflammatory or edematous changes around the pancreas and also around the distal duodenum. EGD 10/30 showed mild gastritis, moderate gastroparesis. - continue with supportive care. Heart healthy diet per GI. - continue analgesics with a bowel regimen. Attempt to d/c IV Dilaudid. - standing Reglan and full liquid diet per GI. Continue Carafate. Elevated LFT's Likely due to alcohol. HCV reactive. Viral load noted. - follow up with GI as an outpt. Alcohol Abuse With acute alcohol intoxication. - CIWA protocol, Seizure Precautions, MVT/Thiamine/Folate replacement. - counselled on drinking cessation. Thrombocytopenia Likely due to alcohol. - will monitor CBC as needed. HTN Blood pressure now on the low side. - pain control. - clonidine prn. - lisinopril 10 mg daily started but d/c s/t angioedema. - started HCTZ 25 mg daily and monitor. Decrease to 12.5 mg daily and adjust as needed. DVT Prophylaxis: SCD/Teds. Discharge Planning Awaiting GI clearance Gary Cerrato DO Oct 30, 2016 14:13
[2016-10-30 16:00] VITALS: BP 141/89; PULSE 62; RESP 18; TEMP 97.7; O2SAT 97
[2016-10-30 20:00] VITALS: BP 147/99; PULSE 68; RESP 18; TEMP 98.8; O2SAT 96
[2016-10-30] MEDS: REMOVE OLD NICODERM (NICOTINE) PATCH T-DERMAL SCH (20:29)
[2016-10-31] VITALS: BP 126/76; PULSE 63; RESP 18; TEMP 97.8; O2SAT 95
[2016-10-31 04:00] VITALS: BP 142/88; PULSE 61; RESP 16; TEMP 97.5; O2SAT 97
[2016-10-31] MEDS: METOCLOPRAMIDE HCL 10 MG/2 ML VIAL IV PUSH SCH ×3 (05:13→20:57)
[2016-10-31] MEDS: SUCRALFATE 1 GM/10 ML CUP PO SCH ×4 (07:36→20:57)
[2016-10-31 08:00] VITALS: BP 113/61; PULSE 67; RESP 18; TEMP 97.8; O2SAT 98
[2016-10-31] MEDS: NICOTINE 21 MG/24 HR PATCH T-DERMAL SCH (08:00)
[2016-10-31] MEDS: THIAMINE HCL 100 MG TAB PO SCH (08:00)
[2016-10-31] MEDS: RANITIDINE HCL SYRUP 150 MG/10 ML UDC PO SCH ×2 (08:00→20:57)
[2016-10-31] MEDS: HYDROCHLOROTHIAZIDE 25 MG TAB PO SCH (08:00)
[2016-10-31] MEDS: predniSONE 20 MG TAB PO SCH (08:00)
[2016-10-31] MEDS: CHLORHEXIDINE 0.12% (ORAL KIT) 15 ML CUP MT SCH ×2 (08:00→20:00)
[2016-10-31] MEDS: BENEPROTEIN POWDER 1 PACK G-TUBE SCH ×2 (08:01→11:26)
[2016-10-31] MEDS: SODIUM CHLORIDE 0.9% FLUSH 10 ML FLUSH IV FLUSH SCH ×2 (08:01→20:57)
[2016-10-31 12:00] VITALS: BP 113/73; PULSE 70; RESP 18; TEMP 97.7; O2SAT 97
--- NOTE | 2016-10-31 14:21 | HHI.GIFU ---
Subjective Remarks Resting in bed. Continues to have some epigastric discomfort- no vomiting and tolerating full liquids. D/W patient gastroparesis diet. Objective Vitals I&O Vital Signs Date Time Temp Pulse Resp B/P Pulse Ox O2 Delivery O2 Flow Rate FiO2 10/31/16 12:00 97.7 70 18 113/73 97 10/31/16 08:00 97.8 67 18 113/61 98 10/31/16 04:00 Room Air 10/31/16 04:00 97.5 61 16 142/88 97 10/31/16 00:00 Room Air 10/31/16 00:00 97.8 63 18 126/76 95 10/30/16 20:00 98.8 68 18 147/99 96 10/30/16 20:00 Room Air 10/30/16 16:00 97.7 62 18 141/89 97 I/O 10/30/16 10/30/16 10/30/16 10/31/16 10/31/16 10/31/16 07:00 15:00 23:00 07:00 15:00 23:00 Intake Total 420 ml 580 ml 360 ml 240 ml 960 ml Output Total 600 ml Balance 420 ml -20 ml 360 ml 240 ml 960 ml Intake Oral 0 ml 480 ml 360 ml 240 ml 960 ml IV Total 420 ml Other 100 ml Output Urine Total 600 ml # Voids 2 0 0 3 # Bowel Movements 0 1 0 0 1 Imaging Last Impressions Chest X-Ray 10/28/16 0000 Signed Impressions: Service Date/Time: Friday, October 28, 2016 00:56 - CONCLUSION: No acute disease. Gamal Bravo MD Abdomen/Pelvis CT 10/25/16 0000 Signed Impressions: Service Date/Time: October 15:44 - CONCLUSION: 1. Mild inflammatory or edematous changes around the pancreas and also around the distal duodenum. Differential diagnosis includes mild pancreatitis and duodenitis. Findings are similar to October 21. 2. New subsegmental air space disease noted in the medial segment right middle lobe and right lower lobe. Joseph Dixon MD Physical Exam HEENT: Normocephalic; atraumatic; no jaundice. CHEST: CTA CARDIAC: RRR ABDOMEN: Abdomen soft, mildly bloated, epigastric tenderness, bowel sounds are present x 4 quadrants. EXTREMITIES: No clubbing, cyanosis, or edema. SKIN: Normal; no rash; no jaundice. MANAGER DATABASE ADMINISTRATION: No focal deficits; alert and oriented x 3. Assessment and Plan Plan ASSESSMENT - Acute pancreatitis with hx pancreatic cyts, ETOH abuse. Abdomen/Pelvis CT ()----> 1. Mild inflammatory or edematous changes around the pancreas and also around the distal duodenum. Differential diagnosis includes mild pancreatitis and duodenitis. Findings are similar to October 21. 2. New subsegmental air space disease noted in the medial segment right middle lobe and right lower lobe. Lipase normalized. Continues to have abdominal pain, worse after eating despite PPI/Carafate. PPI changed to Ranitidine per attending. EGD (10/30/16)---> Esophagus bits of food in mid to distal esophagus. No stricture appreciated, moderate retained food consistent with gastroparesis, mild gastritis in antrum, pylorus open, normal duodenum with no duodenitis. Pathology pending. Lipase normalized. - Retained food consistent with gastroparesis. Started on reglan. Tolerating full liquids. D/W patient gastroparesis diet, verbalizes understanding. - Abnormal LFTs. CT as above. Hep C, LFTs have stabilized. - HCV Ab (+). HCV RNA Genotype 1b. HCV RNA (PCR) [id number]. - Angioedema secondary to bernarda inhibitor, improved. Extubated on r/a. No respiratory distress. PLAN - Soft low fat diet - D/W patient gastroparesis diet- small frequent meals, soft diet, chew food well, small bites. - Await pathology - Cont. Reglan - Cont. Ranitidine - Continue Carafate - ETOH cessation - Supportive care - Pt seen and examined by Dr. Gdofrey and myself and this note is written on his behalf Phuong Prieto Oct 31, 2016 14:21
[2016-10-31 16:00] VITALS: BP 116/68; PULSE 78; RESP 18; TEMP 97.7; O2SAT 96
--- NOTE | 2016-10-31 16:28 | HHI.PR ---
Subjective Remarks Angioedema has resolved. Patient still has upper abdominal pains. This may be secondary to pancreatitis versus duodenitis versus gastritis or all three. He has been reverted back to a full liquid diet secondary to gastroparesis. Gastroparesis may be secondary to inflammation. Objective Vital Signs Date Time Temp Pulse Resp B/P Pulse Ox O2 Delivery O2 Flow Rate FiO2 10/31/16 12:00 97.7 70 18 113/73 97 10/31/16 08:00 97.8 67 18 113/61 98 10/31/16 04:00 Room Air 10/31/16 04:00 97.5 61 16 142/88 97 10/31/16 00:00 Room Air 10/31/16 00:00 97.8 63 18 126/76 95 10/30/16 20:00 98.8 68 18 147/99 96 10/30/16 20:00 Room Air I/O 10/30/16 10/30/16 10/30/16 10/31/16 10/31/16 10/31/16 07:00 15:00 23:00 07:00 15:00 23:00 Intake Total 420 ml 580 ml 360 ml 240 ml 960 ml Output Total 600 ml Balance 420 ml -20 ml 360 ml 240 ml 960 ml Intake Oral 0 ml 480 ml 360 ml 240 ml 960 ml IV Total 420 ml Other 100 ml Output Urine Total 600 ml # Voids 2 0 0 3 # Bowel Movements 0 1 0 0 1 Result Diagram: 10/29/16 1325 10/29/16 1325 Objective Remarks GENERAL: NAD, A&Ox3 HEAD: Normocephalic. NECK: Supple, trachea midline. No lymphadenopathy. EYES: No scleral icterus. No injection or drainage. CARDIOVASCULAR: Regular rate and rhythm without murmurs, gallops, or rubs. RESPIRATORY: Breath sounds equal bilaterally. No accessory muscle use. GASTROINTESTINAL: Abdomen soft, non-tender, nondistended. Moderate epigastric tenderness. MUSCULOSKELETAL: No cyanosis, or edema. SKIN: Warm and dry. NEURO: No focal neurological deficitis. Medications and IVs Administered Medications Medications (Trade) Dose Ordered Sig/Fercho Route PRN Reason Start Time Stop Time Status Last Admin Dose Admin Sodium Chloride (NS Flush) 2 ml UNSCH PRN IV FLUSH FLUSH AFTER USING IV ACCESS 10/21/16 22:45 10/28/16 18:33 Sodium Chloride (NS Flush) 2 ml BID IV FLUSH 10/22/16 09:00 10/31/16 08:01 Ondansetron HCl (Zofran Inj) 4 mg Q6H PRN IVP NAUSEA OR VOMITING 10/21/16 22:45 10/27/16 21:37 Sennosides (Senokot) 17.2 mg Q12H PRN PO MODERATE - SEVERE CONSTIPATION 10/21/16 22:45 10/28/16 06:19 Thiamine HCl (Vitamin B1) 100 mg DAILY PO 10/25/16 09:00 10/31/16 08:00 Lorazepam (Ativan) 1 mg Q4H PRN PO CIWA 8 - 10 10/21/16 22:45 10/27/16 21:31 Lorazepam (Ativan Inj) 1 mg Q4H PRN IV PUSH CIWA 8 - 10 10/21/16 22:45 10/29/16 02:19 Oxycodone HCl (Roxicodone) 10 mg Q4H PRN PO PAIN 6-10 10/22/16 09:15 10/31/16 16:18 Nicotine (Habitrol 21 Mg Patch.24 Hr) 1 patch DAILY T-DERMAL 10/24/16 17:00 10/31/16 08:00 Miscellaneous Information 1 HS T-DERMAL 10/24/16 21:00 10/30/16 20:29 Clonidine (Catapres) 0.1 mg Q6H PRN PO SBP> OR = 180, DBP> OR = 100 10/25/16 09:45 10/29/16 06:42 Sucralfate (Carafate Liq) 1 gm ACHS PO 10/27/16 16:00 10/31/16 16:18 Ranitidine HCl (Zantac Liq) 150 mg Q12HR PO 10/27/16 21:00 10/31/16 08:00 Chlorhexidine Gluconate (Peridex 0.12% Liq) 15 ml BID@08,20 MT 10/28/16 08:00 10/31/16 08:00 Fentanyl Citrate (fentaNYL INJ) 50 mcg Q1H PRN IV PUSH PAIN SCALE 6 TO 10 10/28/16 00:45 10/28/16 11:14 Hydralazine HCl (Apresoline Inj) 10 mg Q4HR PRN IV SBP > 170 10/29/16 07:45 10/29/16 11:24 Prednisone (Deltasone) 20 mg DAILY PO 10/30/16 09:00 10/31/16 08:00 Metoclopramide HCl (Reglan Inj) 10 mg Q8HR IV PUSH 10/30/16 14:00 10/31/16 14:48 Hydrochlorothiazide (Hydrodiuril) 12.5 mg DAILY PO 10/31/16 09:00 10/31/16 08:00 A/P Problem List: (1) Pancreatitis ICD Code: K85.90 (2) Alcoholic pancreatitis ICD Code: K85.20 (3) Nondiabetic gastroparesis ICD Code: K31.84 Assessment and Plan Assessment and Plan 56-year-old male admitted with alcohol-related pancreatitis Angioedema Reaction to lisinopril which is being used to treat his hypertensive urgency. Now resolved Follow for any recurrence Alcoholic Pancreatitis Duoedenitis/gastritis Gastroparesis Continue full liquid diet Narcotics have been weaned down GI following Continue Carafate Monitor for improvement Elevated LFT's Alcohol versus hepatitis C This is not acutely progressive Alcohol Abuse Multivitamin folic acid Thiamine CIWA protocol Thrombocytopenia Secondary to alcohol Follow CBC HTN Continue hydrochlorothiazide Avoid lisinopril DVT Prophylaxis SCD/Teds. Discharge Planning Patient needs improvement in by mouth intake, abdominal pain, and gastroparesis symptoms Problem Qualifiers (1) Alcoholic pancreatitis: Qualified Code: K85.20 - Alcohol-induced acute pancreatitis, unspecified complication status Kevin Luo MD Oct 31, 2016 4:27 pm
[2016-10-31 20:00] VITALS: BP 144/90; PULSE 67; RESP 18; TEMP 98; O2SAT 98
[2016-10-31] MEDS: REMOVE OLD NICODERM (NICOTINE) PATCH T-DERMAL SCH (21:00)
[2016-11-01] VITALS (7 sets, daily range): BP systolic 94–163; BP diastolic 56–104; PULSE 57–84; RESP 18; TEMP 97.6–98.5; O2SAT 96–99
[2016-11-01] MEDS: cloNIDine HCL 0.1 MG TAB PO PRN (00:08)
[2016-11-01] MEDS: SUCRALFATE 1 GM/10 ML CUP PO SCH ×4 (05:36→22:46)
[2016-11-01] MEDS: METOCLOPRAMIDE HCL 10 MG/2 ML VIAL IV PUSH SCH ×3 (05:36→22:47)
[2016-11-01] MEDS: SODIUM CHLORIDE 0.9% FLUSH 10 ML FLUSH IV FLUSH PRN (05:37)
--- NOTE | 2016-11-01 07:38 | MR ---
cc: ANÍBAL GODFREY MD, MICHAEL DATE 10/30/2016 PROCEDURE Esophagogastroduodenoscopy with biopsy INDICATION Epigastric pain and possible duodenitis REFERRING PHYSICIAN Dr. Cerrato PROCEDURE After informed consent was obtained, the patient was placed in the left side down position. He was sedated by the Anesthesia Service. After adequate sedation was achieved, the Pentax video gastroscope was advanced in the oropharynx and advanced through to the esophagus, stomach and duodenum. It was then slowly withdrawn examining the mucosa surfaces carefully. Biopsy was obtained of the gastric antrum. A retroflexed examination was performed. The scope was then straightened and pulled through the esophagus and the procedure was terminated. He tolerated the procedure well and was returned to the recovery area in good condition. FINDINGS 1. In the esophagus, there were bits of food in the mid to distal esophagus, but no stricture was appreciated. 2. In the stomach, there was moderate retained food consistent with gastroparesis. There was also mild gastritis and a biopsy was taken from the antrum. 3. The pylorus was widely patent. 4. The duodenum was normal and no duodenitis was present. IMPRESSION 1. Gastritis 2. Gastroparesis PLAN 1. I will await the biopsy result. 2. We will begin Reglan 10 mg prior to his meals. 3. Change his diet to a full liquid diet to allow better and easier gastric emptying. Aníbal Godfrey MD HHS/DJL /10:13 AM /7:34 AM
[2016-11-01] MEDS: CHLORHEXIDINE 0.12% (ORAL KIT) 15 ML CUP MT SCH ×2 (08:00→20:00)
[2016-11-01] MEDS: BENEPROTEIN POWDER 1 PACK G-TUBE SCH ×3 (09:00→17:59)
[2016-11-01] MEDS: THIAMINE HCL 100 MG TAB PO SCH (09:26)
[2016-11-01] MEDS: predniSONE 20 MG TAB PO SCH (09:26)
[2016-11-01] MEDS: HYDROCHLOROTHIAZIDE 25 MG TAB PO SCH (09:27)
[2016-11-01] MEDS: NICOTINE 21 MG/24 HR PATCH T-DERMAL SCH (09:27)
[2016-11-01] MEDS: SODIUM CHLORIDE 0.9% FLUSH 10 ML FLUSH IV FLUSH SCH ×2 (09:27→22:47)
[2016-11-01] MEDS: RANITIDINE HCL SYRUP 150 MG/10 ML UDC PO SCH ×2 (09:27→22:46)
--- NOTE | 2016-11-01 13:16 | HHI.GIFU ---
Subjective Remarks Resting in bed. States he is only eating full liquids because he was told by GI that he needed to stay on a liquid diet. Explained to patient that we advanced his diet yesterday. He is still having abdominal pain. Tolerating full liquids. + BM. Objective Vitals I&O Vital Signs Date Time Temp Pulse Resp B/P Pulse Ox O2 Delivery O2 Flow Rate FiO2 11/01/16 12:00 98.5 68 18 99/70 99 11/01/16 08:00 97.8 70 18 94/56 97 11/01/16 05:36 Room Air 11/01/16 04:00 97.6 68 18 107/72 98 11/01/16 01:15 97.9 65 18 105/69 96 11/01/16 00:00 97.9 57 18 163/104 99 10/31/16 20:00 98.0 67 18 144/90 98 10/31/16 20:00 Room Air 10/31/16 16:00 97.7 78 18 116/68 96 I/O 10/31/16 10/31/16 10/31/16 11/01/16 11/01/16 11/01/16 07:00 15:00 23:00 07:00 15:00 23:00 Intake Total 240 ml 960 ml 480 ml 240 ml Balance 240 ml 960 ml 480 ml 240 ml Intake Oral 240 ml 960 ml 480 ml 240 ml # Voids 0 3 5 3 # Bowel Movements 0 1 Imaging Last Impressions Chest X-Ray 10/28/16 0000 Signed Impressions: Service Date/Time: Friday, October 28, 2016 00:56 - CONCLUSION: No acute disease. Gamal Bravo MD Abdomen/Pelvis CT 10/25/16 0000 Signed Impressions: Service Date/Time: October 15:44 - CONCLUSION: 1. Mild inflammatory or edematous changes around the pancreas and also around the distal duodenum. Differential diagnosis includes mild pancreatitis and duodenitis. Findings are similar to October 21. 2. New subsegmental air space disease noted in the medial segment right middle lobe and right lower lobe. Joseph Dixon MD Physical Exam HEENT: Normocephalic; atraumatic; no jaundice. CHEST: CTA CARDIAC: RRR ABDOMEN: Abdomen soft, mildly bloated, epigastric tenderness, bowel sounds are present x 4 quadrants. EXTREMITIES: No clubbing, cyanosis, or edema. SKIN: Normal; no rash; no jaundice. CUT OFF OPERATOR SCORER: No focal deficits; alert and oriented x 3. Assessment and Plan Plan ASSESSMENT - Acute pancreatitis with hx pancreatic cyts, ETOH abuse. Abdomen/Pelvis CT ()----> 1. Mild inflammatory or edematous changes around the pancreas and also around the distal duodenum. Differential diagnosis includes mild pancreatitis and duodenitis. Findings are similar to October 21. 2. New subsegmental air space disease noted in the medial segment right middle lobe and right lower lobe. Lipase normalized. Continues to have abdominal pain, worse after eating despite PPI/Carafate. PPI changed to Ranitidine per attending. EGD (10/30/16)---> Esophagus bits of food in mid to distal esophagus. No stricture appreciated, moderate retained food consistent with gastroparesis, mild gastritis in antrum, pylorus open, normal duodenum with no duodenitis. Pathology reactive gastropathy. Lipase normalized. Diet was advanced yesterday, but patient has not tried low fat diet yet. States he thought he needed liquids. Will try low fat for lunch. - Gastroparesis. Started on reglan. D/W patient gastroparesis diet, verbalizes understanding. + BM per patient - Abnormal LFTs. CT as above. Hep C, LFTs have stabilized. - HCV Ab (+). HCV RNA Genotype 1b. HCV RNA (PCR) [id number]. - Angioedema secondary to bernarda inhibitor, improved. Extubated on r/a. No respiratory distress. PLAN - Soft low fat diet - D/W patient gastroparesis diet- small frequent meals, soft diet, chew food well, small bites. - Cont. Reglan - Cont. Ranitidine - Continue Carafate - ETOH cessation - GI will sign off - Pt seen and examined by Dr. Godfrey and myself and this note is written on his behalf Phuong Prieto Nov 01, 2016 13:16
--- NOTE | 2016-11-01 16:57 | HHI.PR ---
Subjective Remarks Diet agreed to regular. Patient tolerating regular diet so far. Pain medications decreased for potential effect to gastroparesis. Objective Vital Signs Date Time Temp Pulse Resp B/P Pulse Ox O2 Delivery O2 Flow Rate FiO2 11/01/16 12:00 98.5 68 18 99/70 99 11/01/16 08:00 97.8 70 18 94/56 97 11/01/16 05:36 Room Air 11/01/16 04:00 97.6 68 18 107/72 98 11/01/16 01:15 97.9 65 18 105/69 96 11/01/16 00:00 97.9 57 18 163/104 99 10/31/16 20:00 98.0 67 18 144/90 98 10/31/16 20:00 Room Air I/O 10/31/16 10/31/16 10/31/16 11/01/16 11/01/16 11/01/16 07:00 15:00 23:00 07:00 15:00 23:00 Intake Total 240 ml 960 ml 480 ml 240 ml Balance 240 ml 960 ml 480 ml 240 ml Intake Oral 240 ml 960 ml 480 ml 240 ml # Voids 0 3 5 3 # Bowel Movements 0 1 Result Diagram: 10/29/16 1325 10/29/16 1325 Objective Remarks GENERAL: NAD, A&Ox3 HEAD: Normocephalic. NECK: Supple, trachea midline. No lymphadenopathy. EYES: No scleral icterus. No injection or drainage. CARDIOVASCULAR: Regular rate and rhythm without murmurs, gallops, or rubs. RESPIRATORY: Breath sounds equal bilaterally. No accessory muscle use. GASTROINTESTINAL: Abdomen soft, non-tender, nondistended. Moderate epigastric tenderness. MUSCULOSKELETAL: No cyanosis, or edema. SKIN: Warm and dry. NEURO: No focal neurological deficitis. A/P Problem List: (1) Pancreatitis ICD Code: K85.90 (2) Alcoholic pancreatitis ICD Code: K85.20 (3) Nondiabetic gastroparesis ICD Code: K31.84 Assessment and Plan Assessment and Plan 56-year-old male admitted with alcohol-related pancreatitis. Tolerating diet today. Trying to wean pain treatments. Patient will build take pain treatments as an outpatient due to financial issues. We'll try to wean off pain treatments and monitor for tolerance of diet prior to discharge. Angioedema Reaction to lisinopril which is being used to treat his hypertensive urgency. Now resolved Follow for any recurrence Alcoholic Pancreatitis Duoedenitis/gastritis Gastroparesis Continue full liquid diet Narcotics have been weaned down GI following Continue Carafate Monitor for improvement Elevated LFT's Alcohol versus hepatitis C This is not acutely progressive Alcohol Abuse Multivitamin folic acid Thiamine No further DVTs CIWA protocol Thrombocytopenia Secondary to alcohol Follow CBC HTN Continue hydrochlorothiazide Avoid lisinopril DVT Prophylaxis SCD/Teds. Discharge Planning Patient needs improvement in by mouth intake, abdominal pain, and gastroparesis symptoms Problem Qualifiers (1) Alcoholic pancreatitis: Qualified Code: K85.20 - Alcohol-induced acute pancreatitis, unspecified complication status Kevin Luo MD Nov 01, 2016 16:57
[2016-11-01] MEDS: REMOVE OLD NICODERM (NICOTINE) PATCH T-DERMAL SCH (22:47)
[2016-11-02] VITALS: BP 131/79; PULSE 76; RESP 18; TEMP 97.5; O2SAT 98
[2016-11-02 04:00] VITALS: BP 137/86; PULSE 70; RESP 18; TEMP 97.6; O2SAT 97
[2016-11-02] MEDS: METOCLOPRAMIDE HCL 10 MG/2 ML VIAL IV PUSH SCH ×3 (06:42→20:48)
[2016-11-02] MEDS: SUCRALFATE 1 GM/10 ML CUP PO SCH ×4 (06:42→20:48)
[2016-11-02 08:00] VITALS: BP 147/98; PULSE 70; RESP 20; TEMP 97.4; O2SAT 97
[2016-11-02] MEDS: CHLORHEXIDINE 0.12% (ORAL KIT) 15 ML CUP MT SCH ×2 (08:00→20:00)
[2016-11-02] MEDS: RANITIDINE HCL SYRUP 150 MG/10 ML UDC PO SCH ×2 (08:05→20:48)
[2016-11-02] MEDS: predniSONE 20 MG TAB PO SCH (08:05)
[2016-11-02] MEDS: THIAMINE HCL 100 MG TAB PO SCH (08:05)
[2016-11-02] MEDS: HYDROCHLOROTHIAZIDE 25 MG TAB PO SCH (08:05)
[2016-11-02] MEDS: BENEPROTEIN POWDER 1 PACK G-TUBE SCH ×3 (08:06→18:00)
[2016-11-02] MEDS: NICOTINE 21 MG/24 HR PATCH T-DERMAL SCH (08:06)
[2016-11-02] MEDS: SODIUM CHLORIDE 0.9% FLUSH 10 ML FLUSH IV FLUSH SCH ×2 (09:00→20:50)
[2016-11-02 09:29] LABS: AUTOMATED NEUTROPHIL # 4.3 TH/MM3 (1.8-7.7); BASOPHIL % 0.2 % (0.0-2.0); EOSINOPHIL # 0.1 TH/MM3 (0-0.4); EOSINOPHIL % 2.2 % (0.0-4.0); HEMATOCRIT 40.9 % (39.0-51.0); LYMPH % 22.2 % (9.0-44.0); LYMPHOCYTE # 1.5 TH/MM3 (1.0-4.8); MEAN CELL VOLUME 95.6 FL (80.0-100.0); MEAN CORPUSCULAR HEMOGLOBIN 33.8 PG (27.0-34.0); MEAN CORPUSCULAR HGB CONC 35.3 % (32.0-36.0); MONO % 10.1 % (0.0-8.0); NEUT % 65.3 % (16.0-70.0); PLATELET COUNT 265 TH/MM3 (150-450); RED BLOOD COUNT 4.27 MIL/MM3 (4.50-5.90); RED CELL DISTRIBUTION WIDTH 14.5 % (11.6-17.2); WHITE BLOOD COUNT 6.6 TH/MM3 (4.0-11.0)
[2016-11-02 09:39] LABS: HEMO FLAGS AUTO DIFF
[2016-11-02 09:53] LABS: ANION GAP 10 MEQ/L (5-15); AST (GOT) 28 U/L (15-37); BICARBONATE 31.5 MEQ/L (21.0-32.0); BLOOD UREA NITROGEN 13 MG/DL (7-18); CHLORIDE 94 MEQ/L (98-107); GLOMERULAR FILTRATION RATE 90 ML/MIN (>89); POTASSIUM 3.4 MEQ/L (3.5-5.1); SODIUM (NA) 135 MEQ/L (136-145)
[2016-11-02 09:55] LABS: ALT (GPT) 47 U/L (12-78); THYROXINE (T4) 8.2 MCG/DL (4.5-12.1)
[2016-11-02 10:04] LABS: ALKALINE PHOSPHATASE 41 U/L (45-117); FREE T3 2.91 PG/ML (2.18-3.98)
[2016-11-02 10:56] LABS: SCAN/DIFF AUTO DIFF CONFIRMED
--- NOTE | 2016-11-02 11:04 | HHI.PR ---
Subjective Remarks Diet as tolerated. Pain is not controlled on 5 mg of oxycodone. Thyroid workup expanded. She reports a history of hypothyroidism but cannot afford medications. Objective Vital Signs Date Time Temp Pulse Resp B/P Pulse Ox O2 Delivery O2 Flow Rate FiO2 11/02/16 08:00 97.4 70 20 147/98 97 11/02/16 08:00 98 Room Air 11/02/16 04:00 97.6 70 18 137/86 97 11/02/16 00:00 97.5 76 18 131/79 98 11/01/16 20:00 97.6 84 18 131/79 98 11/01/16 20:00 Room Air 11/01/16 16:00 97.8 73 18 114/73 97 11/01/16 12:00 98.5 68 18 99/70 99 I/O 11/01/16 11/01/16 11/01/16 11/02/16 11/02/16 11/02/16 07:00 15:00 23:00 07:00 15:00 23:00 Intake Total 240 ml 960 ml 950 ml Balance 240 ml 960 ml 950 ml Intake Oral 240 ml 960 ml 950 ml # Voids 3 3 2 # Bowel Movements 0 Result Diagram: 11/02/1663211/02/16 0633 Objective Remarks GENERAL: NAD, A&Ox3 HEAD: Normocephalic. NECK: Supple, trachea midline. No lymphadenopathy. EYES: No scleral icterus. No injection or drainage. CARDIOVASCULAR: Regular rate and rhythm without murmurs, gallops, or rubs. RESPIRATORY: Breath sounds equal bilaterally. No accessory muscle use. GASTROINTESTINAL: Abdomen soft, non-tender, nondistended. Moderate epigastric tenderness. MUSCULOSKELETAL: No cyanosis, or edema. SKIN: Warm and dry. NEURO: No focal neurological deficitis. A/P Problem List: (1) Pancreatitis ICD Code: K85.90 (2) Alcoholic pancreatitis ICD Code: K85.20 (3) Nondiabetic gastroparesis ICD Code: K31.84 Assessment and Plan Assessment and Plan 56-year-old male admitted with alcohol-related pancreatitis. Tolerating diet today. Trying to wean pain treatments. T3 and T4 studies ordered to determine degree of hypothyroidism. Treatment will be reinitiated if these are low. Continue attempts to try to wean narcotics as patient will not be able to afford pain treatments when he discharges from the hospital. Angioedema Reaction to lisinopril which is being used to treat his hypertensive urgency. Now resolved Follow for any recurrence Alcoholic Pancreatitis Duoedenitis/gastritis Gastroparesis Continue full liquid diet Narcotics have been weaned down GI following Continue Carafate Monitor for improvement Elevated LFT's Alcohol versus hepatitis C This is not acutely progressive Alcohol Abuse Multivitamin folic acid Thiamine No further DVTs CIWA protocol Thrombocytopenia Secondary to alcohol Follow CBC HTN Continue hydrochlorothiazide Avoid lisinopril DVT Prophylaxis SCD/Teds. Discharge Planning Patient needs improvement in by mouth intake, abdominal pain, and gastroparesis symptoms Problem Qualifiers (1) Alcoholic pancreatitis: Qualified Code: K85.20 - Alcohol-induced acute pancreatitis, unspecified complication status Kevin Luo MD Nov 02, 2016 11:04
[2016-11-02 12:00] VITALS: BP 116/71; PULSE 68; RESP 18; TEMP 97.8; O2SAT 96
[2016-11-02 16:00] VITALS: BP 116/64; PULSE 85; RESP 20; TEMP 98.1; O2SAT 97
[2016-11-02 20:00] VITALS: BP 131/86; PULSE 78; RESP 20; TEMP 97.6; O2SAT 97
[2016-11-02] MEDS ORDERED: TEMAZEPAM 15 MG CAP PO ONE (20:30)
[2016-11-02] MEDS: REMOVE OLD NICODERM (NICOTINE) PATCH T-DERMAL SCH (20:49)
[2016-11-02] MEDS: MAGNESIUM HYDROXIDE SUSP 30 ML CUP PO PRN (20:58)
[2016-11-03] VITALS: BP 156/97; PULSE 74; RESP 20; TEMP 97.3; O2SAT 99
[2016-11-03 04:00] VITALS: BP 123/89; PULSE 69; RESP 20; TEMP 97.7; O2SAT 96
[2016-11-03] MEDS: METOCLOPRAMIDE HCL 10 MG/2 ML VIAL IV PUSH SCH ×3 (06:27→21:42)
[2016-11-03] MEDS: SUCRALFATE 1 GM/10 ML CUP PO SCH ×4 (06:27→20:50)
[2016-11-03 08:00] VITALS: BP 135/86; PULSE 61; RESP 18; TEMP 97.6; O2SAT 98
[2016-11-03] MEDS: CHLORHEXIDINE 0.12% (ORAL KIT) 15 ML CUP MT SCH ×2 (08:00→20:00)
[2016-11-03] MEDS: BENEPROTEIN POWDER 1 PACK G-TUBE SCH ×3 (08:12→17:34)
[2016-11-03] MEDS: RANITIDINE HCL SYRUP 150 MG/10 ML UDC PO SCH ×2 (08:15→20:50)
[2016-11-03] MEDS: predniSONE 20 MG TAB PO SCH (08:15)
[2016-11-03] MEDS: NICOTINE 21 MG/24 HR PATCH T-DERMAL SCH (08:15)
[2016-11-03] MEDS: SODIUM CHLORIDE 0.9% FLUSH 10 ML FLUSH IV FLUSH SCH ×2 (08:15→20:51)
[2016-11-03] MEDS: HYDROCHLOROTHIAZIDE 25 MG TAB PO SCH (08:15)
[2016-11-03] MEDS: THIAMINE HCL 100 MG TAB PO SCH (08:15)
[2016-11-03] MEDS: ACETAMINOPHEN 500 MG CPLT PO SCH ×2 (08:30→20:51)
[2016-11-03] MEDS: NAPROXEN 250 MG TAB PO SCH ×2 (09:57→20:51)
[2016-11-03 12:00] VITALS: BP 122/81; PULSE 80; RESP 18; TEMP 98; O2SAT 97
[2016-11-03] MEDS ORDERED: TEMAZEPAM 15 MG CAP PO PRN (13:00)
--- NOTE | 2016-11-03 13:04 | HHI.PR ---
Subjective Remarks Repeat lipase shows recurrence of patient's pancreatitis. This may explain why he's been having persisting abdominal pain despite length of time since his last banker tightness episode. No alcohol exposure recently. Increase concern that alcohol-induced pancreatitis may be a misnomer. Further evaluation from biliary obstruction is planned. This is discussed with the patient. Objective Vital Signs Date Time Temp Pulse Resp B/P Pulse Ox O2 Delivery O2 Flow Rate FiO2 11/03/16 08:00 97.6 61 18 135/86 98 11/03/16 07:25 Room Air 11/03/16 04:00 97.7 69 20 123/89 96 11/03/16 00:00 97.3 74 20 156/97 99 11/02/16 20:00 97.6 78 20 131/86 97 11/02/16 20:00 Room Air 11/02/16 16:00 98.1 85 20 116/64 97 I/O 11/02/16 11/02/16 11/02/16 11/03/16 11/03/16 11/03/16 07:00 15:00 23:00 07:00 15:00 23:00 Intake Total 220 ml 360 ml Balance 220 ml 360 ml Intake Oral 220 ml 360 ml # Voids 4 2 # Bowel Movements 0 0 Result Diagram: 11/02/1663211/02/16 0633 Objective Remarks GENERAL: NAD, A&Ox3 HEAD: Normocephalic. NECK: Supple, trachea midline. No lymphadenopathy. EYES: No scleral icterus. No injection or drainage. CARDIOVASCULAR: Regular rate and rhythm without murmurs, gallops, or rubs. RESPIRATORY: Breath sounds equal bilaterally. No accessory muscle use. GASTROINTESTINAL: Abdomen soft, non-tender, nondistended. Moderate epigastric tenderness. MUSCULOSKELETAL: No cyanosis, or edema. SKIN: Warm and dry. NEURO: No focal neurological deficitis. A/P Problem List: (1) Pancreatitis ICD Code: K85.90 (2) Alcoholic pancreatitis ICD Code: K85.20 (3) Nondiabetic gastroparesis ICD Code: K31.84 Assessment and Plan Assessment and Plan 56-year-old male admitted with alcohol-related pancreatitis. Persisting abdominal pain. No further symptoms and gastroparesis. Repeat lipase study shows recurrence of pancreatitis. HIDA scan ordered as a screen for biliary obstruction. Etiology of his pancreatitis was correctly presumed to be alcohol induced, however an alternate etiology may be present if he has recurrence. Weaned from pain medicines placed on hold for now. Most correct patient's pancreatitis and work him up further for a cause prior to consideration for discharge. Angioedema Reaction to lisinopril which is being used to treat his hypertensive urgency. Now resolved Follow for any recurrence Acute Pancreatitis Duoedenitis/gastritis Gastroparesis Continue full liquid diet Narcotics have been weaned down GI following Continue Carafate Monitor for improvement IV hydration Elevated LFT's Alcohol versus hepatitis C This is not acutely progressive Alcohol Abuse Multivitamin folic acid Thiamine No further DVTs CIWA protocol Thrombocytopenia Secondary to alcohol Follow CBC HTN Continue hydrochlorothiazide Avoid lisinopril DVT Prophylaxis SCD/Teds. Discharge Planning Patient needs improvement in by mouth intake, abdominal pain, and gastroparesis symptoms Problem Qualifiers (1) Alcoholic pancreatitis: Qualified Code: K85.20 - Alcohol-induced acute pancreatitis, unspecified complication status Kevin Luo MD Nov 03, 2016 13:04
[2016-11-03] MEDS: SODIUM CHLOR 0.9% 1000 ML INJ 1,000 ML IV SCH ×2 (13:11→20:52)
[2016-11-03 16:00] VITALS: BP 115/82; PULSE 78; RESP 18; TEMP 98; O2SAT 97
[2016-11-03 20:00] VITALS: BP 134/85; PULSE 86; RESP 20; TEMP 97.8; O2SAT 96
[2016-11-03] MEDS: REMOVE OLD NICODERM (NICOTINE) PATCH T-DERMAL SCH (20:52)
[2016-11-04] VITALS: BP 156/93; PULSE 67; RESP 20; TEMP 97.8; O2SAT 98
[2016-11-04] MEDS: SODIUM CHLOR 0.9% 1000 ML INJ 1,000 ML IV SCH ×3 (03:32→17:43)
[2016-11-04 04:00] VITALS: BP 162/97; PULSE 63; RESP 20; TEMP 97.6; O2SAT 99
[2016-11-04] MEDS: SUCRALFATE 1 GM/10 ML CUP PO SCH ×4 (05:26→21:05)
[2016-11-04] MEDS: METOCLOPRAMIDE HCL 10 MG/2 ML VIAL IV PUSH SCH ×3 (05:26→21:04)
[2016-11-04] MEDS: cloNIDine HCL 0.1 MG TAB PO PRN (05:27)
[2016-11-04 08:00] VITALS: BP 138/65; PULSE 96; RESP 18; TEMP 98; O2SAT 96
[2016-11-04] MEDS: CHLORHEXIDINE 0.12% (ORAL KIT) 15 ML CUP MT SCH ×2 (08:00→20:00)
[2016-11-04] MEDS: BENEPROTEIN POWDER 1 PACK G-TUBE SCH ×3 (09:00→17:29)
[2016-11-04] MEDS: SODIUM CHLORIDE 0.9% FLUSH 10 ML FLUSH IV FLUSH SCH ×2 (09:00→21:00)
[2016-11-04] MEDS: NAPROXEN 250 MG TAB PO SCH ×2 (09:02→21:05)
[2016-11-04] MEDS: THIAMINE HCL 100 MG TAB PO SCH (09:02)
[2016-11-04] MEDS: predniSONE 20 MG TAB PO SCH (09:02)
[2016-11-04] MEDS: RANITIDINE HCL SYRUP 150 MG/10 ML UDC PO SCH ×2 (09:02→21:05)
[2016-11-04] MEDS: ACETAMINOPHEN 500 MG CPLT PO SCH ×2 (09:02→21:05)
[2016-11-04] MEDS: NICOTINE 21 MG/24 HR PATCH T-DERMAL SCH (09:02)
[2016-11-04] MEDS: HYDROCHLOROTHIAZIDE 25 MG TAB PO SCH (09:03)
[2016-11-04 12:00] VITALS: BP 145/79; PULSE 69; RESP 18; TEMP 97.3; O2SAT 97
--- NOTE | 2016-11-04 12:57 | HHI.PR ---
Subjective Remarks With dietary changes and IV hydration the patient's symptoms are improving. He has a decrease in pain. Lipase level has also decreased. HIDA scan is pending to ensure no obstructive etiology. Objective Vital Signs Date Time Temp Pulse Resp B/P Pulse Ox O2 Delivery O2 Flow Rate FiO2 11/04/16 12:00 97.3 69 18 145/79 97 11/04/16 08:00 98.0 96 18 138/65 96 11/04/16 04:00 97.6 63 20 162/97 99 11/04/16 00:00 97.8 67 20 156/93 98 11/03/16 20:00 97.8 86 20 134/85 96 11/03/16 20:00 Room Air 11/03/16 16:00 98.0 78 18 115/82 97 I/O 11/03/16 11/03/16 11/03/16 11/04/16 11/04/16 11/04/16 07:00 15:00 23:00 07:00 15:00 23:00 Intake Total 360 ml 1178 ml 1493 ml 987 ml Balance 360 ml 1178 ml 1493 ml 987 ml Intake Oral 360 ml 960 ml 480 ml IV Total 218 ml 1013 ml 987 ml # Voids 2 2 2 # Bowel Movements 0 1 Result Diagram: 11/02/1663211/02/16 0633 Objective Remarks GENERAL: NAD, A&Ox3 HEAD: Normocephalic. NECK: Supple, trachea midline. No lymphadenopathy. EYES: No scleral icterus. No injection or drainage. CARDIOVASCULAR: Regular rate and rhythm without murmurs, gallops, or rubs. RESPIRATORY: Breath sounds equal bilaterally. No accessory muscle use. GASTROINTESTINAL: Abdomen soft, non-tender, nondistended. Moderate epigastric tenderness. MUSCULOSKELETAL: No cyanosis, or edema. SKIN: Warm and dry. NEURO: No focal neurological deficitis. A/P Problem List: (1) Pancreatitis ICD Code: K85.90 (2) Alcoholic pancreatitis ICD Code: K85.20 (3) Nondiabetic gastroparesis ICD Code: K31.84 Assessment and Plan Assessment and Plan 56-year-old male admitted with alcohol-related pancreatitis. Persisting abdominal pain. Recurrent pancreatitis discovered on's 11/03/16. Improvement in symptoms and improvement in lipase level with IV hydration and low-fat diet. Continue the same. Awaiting HIDA scan to ensure no biliary obstruction. Angioedema Reaction to lisinopril which is being used to treat his hypertensive urgency. Now resolved Follow for any recurrence Acute Pancreatitis Duoedenitis/gastritis Gastroparesis Continue full liquid diet Narcotics have been weaned down GI following Continue Carafate Monitor for improvement IV hydration Elevated LFT's Alcohol versus hepatitis C This is not acutely progressive Alcohol Abuse Multivitamin folic acid Thiamine No further DVTs CIWA protocol Thrombocytopenia Secondary to alcohol Follow CBC HTN Continue hydrochlorothiazide Avoid lisinopril DVT Prophylaxis SCD/Teds. Discharge Planning Patient needs improvement in by mouth intake, abdominal pain, and gastroparesis symptoms Problem Qualifiers (1) Alcoholic pancreatitis: Qualified Code: K85.20 - Alcohol-induced acute pancreatitis, unspecified complication status Kevin Luo MD Nov 04, 2016 12:57
[2016-11-04 16:00] VITALS: BP 143/90; PULSE 63; RESP 18; TEMP 98; O2SAT 96
[2016-11-04] MEDS: MAGNESIUM HYDROXIDE SUSP 30 ML CUP PO PRN (17:46)
[2016-11-04 20:00] VITALS: BP 161/94; PULSE 64; RESP 20; TEMP 97.7; O2SAT 98
[2016-11-04] MEDS: REMOVE OLD NICODERM (NICOTINE) PATCH T-DERMAL SCH (21:00)
[2016-11-05] VITALS: BP 159/96; PULSE 59; RESP 20; TEMP 97.2; O2SAT 98
[2016-11-05 04:00] VITALS: BP_SYST 170; BP_SYST 182; BP_DIAS 106; BP_DIAS 87; PULSE 52; RESP 20; TEMP 98.5; O2SAT 97
[2016-11-05] MEDS: SODIUM CHLOR 0.9% 1000 ML INJ 1,000 ML IV SCH (04:15)
[2016-11-05 05:54] LABS: HEMATOCRIT 36.3 % (39.0-51.0); MEAN CELL VOLUME 95.1 FL (80.0-100.0); MEAN CORPUSCULAR HEMOGLOBIN 32.6 PG (27.0-34.0); MEAN CORPUSCULAR HGB CONC 34.3 % (32.0-36.0); PLATELET COUNT 230 TH/MM3 (150-450); RED BLOOD COUNT 3.81 MIL/MM3 (4.50-5.90); RED CELL DISTRIBUTION WIDTH 14.3 % (11.6-17.2); REVIEW FLAG FINAL; WHITE BLOOD COUNT 5.6 TH/MM3 (4.0-11.0)
[2016-11-05] MEDS: SUCRALFATE 1 GM/10 ML CUP PO SCH ×4 (06:27→21:27)
[2016-11-05] MEDS: cloNIDine HCL 0.1 MG TAB PO PRN (06:27)
[2016-11-05] MEDS: METOCLOPRAMIDE HCL 10 MG/2 ML VIAL IV PUSH SCH ×3 (06:27→21:27)
[2016-11-05 07:22] LABS: BICARBONATE 28.8 MEQ/L (21.0-32.0); POTASSIUM 3.7 MEQ/L (3.5-5.1)
[2016-11-05 08:00] VITALS: BP_SYST 139; BP_SYST 157; BP_DIAS 90; PULSE 53; PULSE 55; RESP 18; TEMP 97.4; TEMP 97.6; O2SAT 97; O2SAT 98
[2016-11-05] MEDS: CHLORHEXIDINE 0.12% (ORAL KIT) 15 ML CUP MT SCH ×2 (08:00→21:27)
[2016-11-05] MEDS: THIAMINE HCL 100 MG TAB PO SCH (09:00)
[2016-11-05] MEDS: SODIUM CHLORIDE 0.9% FLUSH 10 ML FLUSH IV FLUSH SCH ×2 (09:00→21:28)
[2016-11-05] MEDS: BENEPROTEIN POWDER 1 PACK G-TUBE SCH ×3 (09:00→18:00)
[2016-11-05] MEDS ORDERED: SINCALIDE 5 MCG/5 ML VIAL IV ONE (09:37)
--- NOTE | 2016-11-05 10:20 | RADRPT ---
EXAM DATE/TIME: 11/05/2016 08:21 [place] COMPARISON: No previous studies available for comparison. INDICATIONS : Abdominal pain. DOSE: 4.2 mCi Tc99m Mebrofenin IV MEDICATION: 1.5 mcg Cholecystokinin IV; No symptomatic response. Cholecystokinin was administered by slow infusion over 8 minutes beginning at 60 minutes. MEDICAL HISTORY : Pancreatitis. Smoker. SURGICAL HISTORY : Vasectomy. ENCOUNTER: Initial ACUITY: 2 days PAIN SCALE: 2/10 LOCATION: Right upper quadrant TECHNIQUE: Following the intravenous administration of radiotracer, dynamic sequential image were performed with continuous acquisition. Time-activity curves were generated. FINDINGS: HEPATIIC KINETICS: There is prompt uptake of radiotracer in the liver. No focal defects are seen. There is normal rate of washout from the hepatic parenchyma. BILIARY CLEARANCE: Activity is first seen in the extrahepatic biliary system at 15 minutes minutes. There is normal exc retion into the small bowel. GALLBLADDER: Activity is first seen in the gallbladder at 15 minutes minutes. POST CHOLECYSTOKININ: After Cholecystokinin administration, there is prompt emptying of the gallbladder with a 60 % ejectio n fraction. Common bile duct kinetics are normal and there is no evidence of biliary obstruction. BILIARY ENTERIC REFLUX: None observed. CLINICAL: The patient was asymptomatic after Cholecystokinin administration. CONCLUSION: Negative for cystic duct or common duct obstruction. Miguel Guadarrama MD FACR on November 05, 2016 at 10:17 Board Certified Radiologist. This report was verified electronically.
[2016-11-05] MEDS: NAPROXEN 250 MG TAB PO SCH ×2 (11:14→21:32)
[2016-11-05] MEDS: HYDROCHLOROTHIAZIDE 25 MG TAB PO SCH (11:14)
[2016-11-05] MEDS: ACETAMINOPHEN 500 MG CPLT PO SCH ×2 (11:16→21:28)
[2016-11-05] MEDS: predniSONE 20 MG TAB PO SCH (11:16)
[2016-11-05] MEDS: RANITIDINE HCL SYRUP 150 MG/10 ML UDC PO SCH ×2 (11:17→21:27)
[2016-11-05] MEDS: NICOTINE 21 MG/24 HR PATCH T-DERMAL SCH (11:17)
--- NOTE | 2016-11-05 11:38 | HHI.PR ---
Subjective Remarks Mr. Benjamin is a 56 year old male. He is admitted secondary to pancreatitis alcoholism. He went through DTs but this is not resolved. Pancreatitis had resolved but he had recurrence of pancreatitis 2 days ago. Alternate etiology of biliary obstruction was tested for the HIDA scan and results are negative for any signs of obstruction. He still complains of epigastric pain. Lipase is decreasing with IV hydration. Lipase is now normalized with findings of HIDA scan IV hydration has been discontinued in order to determine stability of lipase levels off of IV hydration. Complaint of abdominal pain today. Lipases trended under 200 today. Objective Vital Signs Date Time Temp Pulse Resp B/P Pulse Ox O2 Delivery O2 Flow Rate FiO2 11/05/16 08:00 97.4 55 18 139/90 98 11/05/16 04:00 98.5 52 20 182/106 97 170/87 11/05/16 00:00 97.2 59 20 159/96 98 11/04/16 20:00 97.7 64 20 161/94 98 11/04/16 19:28 Room Air 11/04/16 16:00 98.0 63 18 143/90 96 11/04/16 12:00 97.3 69 18 145/79 97 I/O 11/04/16 11/04/16 11/04/16 11/05/16 11/05/16 11/05/16 07:00 15:00 23:00 07:00 15:00 23:00 Intake Total 987 ml 960 ml 480 ml 0 ml Output Total 2 ml Balance 987 ml 960 ml 480 ml -2 ml Intake Oral 960 ml 480 ml 0 ml IV Total 987 ml Output Urine Total 2 ml # Voids 2 Result Diagram: 11/05/16 0440 11/05/16 0440 Objective Remarks GENERAL: NAD, A&Ox3 HEAD: Normocephalic. NECK: Supple, trachea midline. No lymphadenopathy. EYES: No scleral icterus. No injection or drainage. CARDIOVASCULAR: Regular rate and rhythm without murmurs, gallops, or rubs. RESPIRATORY: Breath sounds equal bilaterally. No accessory muscle use. GASTROINTESTINAL: Abdomen soft, non-tender, nondistended. Moderate epigastric tenderness. MUSCULOSKELETAL: No cyanosis, or edema. SKIN: Warm and dry. NEURO: No focal neurological deficitis. A/P Problem List: (1) Pancreatitis ICD Code: K85.90 (2) Alcoholic pancreatitis ICD Code: K85.20 (3) Nondiabetic gastroparesis ICD Code: K31.84 Assessment and Plan Assessment and Plan 56-year-old male admitted with alcohol-related pancreatitis. Persisting abdominal pain. Recurrent pancreatitis discovered on's 11/03/16. IV fluids discontinued. Monitor lipase level to determine stability. If lipase level worsens again she may need an MRCP or GI consult. If lipase levels remain stable or improve been weaned from his pain treatments with anticipation for discharge can occur. Angioedema Reaction to lisinopril which is being used to treat his hypertensive urgency. Now resolved Follow for any recurrence Acute Pancreatitis Duoedenitis/gastritis Gastroparesis Continue full liquid diet Narcotics have been weaned down GI following Continue Carafate Monitor for improvement IV hydration Elevated LFT's Alcohol versus hepatitis C This is not acutely progressive Alcohol Abuse Multivitamin folic acid Thiamine No further DVTs CIWA protocol Thrombocytopenia Secondary to alcohol Follow CBC HTN Continue hydrochlorothiazide Avoid lisinopril DVT Prophylaxis SCD/Teds. Discharge Planning Determine stability of lipase level and resolution of pancreatitis. Wean off narcotics after pancreatitis is determined not to be recurrent. Problem Qualifiers (1) Alcoholic pancreatitis: Qualified Code: K85.20 - Alcohol-induced acute pancreatitis, unspecified complication status Kevin Luo MD Nov 05, 2016 11:38
[2016-11-05 12:00] VITALS: BP 157/90; PULSE 53; RESP 18; TEMP 97.6; O2SAT 97
[2016-11-05 16:00] VITALS: BP 120/73; PULSE 64; RESP 18; TEMP 98.5; O2SAT 97
[2016-11-05 20:00] VITALS: BP 147/90; PULSE 67; RESP 18; TEMP 97.3; O2SAT 98
[2016-11-05] MEDS: REMOVE OLD NICODERM (NICOTINE) PATCH T-DERMAL SCH (21:27)
[2016-11-06] VITALS: BP 154/92; PULSE 56; RESP 16; TEMP 97.6; O2SAT 98
[2016-11-06 04:00] VITALS: BP 184/98; PULSE 54; RESP 16; TEMP 97.8; O2SAT 99
[2016-11-06] MEDS: SUCRALFATE 1 GM/10 ML CUP PO SCH ×4 (05:35→22:32)
[2016-11-06] MEDS: METOCLOPRAMIDE HCL 10 MG/2 ML VIAL IV PUSH SCH ×3 (05:35→22:33)
[2016-11-06] MEDS: cloNIDine HCL 0.1 MG TAB PO PRN (05:51)
[2016-11-06 06:21] VITALS: BP 160/99; PULSE 54
[2016-11-06] MEDS: CHLORHEXIDINE 0.12% (ORAL KIT) 15 ML CUP MT SCH ×2 (08:00→20:00)
[2016-11-06] MEDS: HYDROCHLOROTHIAZIDE 25 MG TAB PO SCH (08:36)
[2016-11-06] MEDS: THIAMINE HCL 100 MG TAB PO SCH (08:36)
[2016-11-06] MEDS: ACETAMINOPHEN 500 MG CPLT PO SCH ×2 (08:36→22:29)
[2016-11-06] MEDS: NAPROXEN 250 MG TAB PO SCH ×2 (08:36→22:32)
[2016-11-06] MEDS: predniSONE 20 MG TAB PO SCH (08:36)
[2016-11-06] MEDS: RANITIDINE HCL SYRUP 150 MG/10 ML UDC PO SCH ×2 (08:36→22:32)
[2016-11-06] MEDS: NICOTINE 21 MG/24 HR PATCH T-DERMAL SCH (08:37)
[2016-11-06] MEDS: SODIUM CHLORIDE 0.9% FLUSH 10 ML FLUSH IV FLUSH SCH ×2 (08:40→22:32)
[2016-11-06] MEDS: BENEPROTEIN POWDER 1 PACK G-TUBE SCH ×3 (08:40→18:00)
[2016-11-06 09:00] VITALS: BP 122/75; PULSE 63; RESP 18; TEMP 97.6; O2SAT 98
--- NOTE | 2016-11-06 13:13 | HHI.PR ---
Subjective Remarks Patient seen and examined. Sitting up eating lunch. Says that he is tolerating his meal with only some discomfort. He reports that his abdominal pain is still present and that it is a 6/10. He agrees with starting to trend down his pain medication today. He is glad that the Lipase level is still with in normal limits but is concerned that it alvarado slightly. He does not fill safe to leave that hospital today, but agrees with leaving once opiates are tapered down. Lipase up today to 254 from 176 Objective Vitals Vital Signs Date Time Temp Pulse Resp B/P Pulse Ox O2 Delivery O2 Flow Rate FiO2 11/06/16 09:00 97.6 63 18 122/75 98 11/06/16 08:00 98 Room Air 11/06/16 06:21 54 160/99 11/06/16 04:00 97.8 54 16 184/98 99 11/06/16 04:00 Room Air 11/06/16 00:00 Room Air 11/06/16 00:00 97.6 56 16 154/92 98 11/05/16 20:00 97.3 67 18 147/90 98 11/05/16 20:00 Room Air 11/05/16 16:00 98.5 64 18 120/73 97 I/O 11/05/16 11/05/16 11/05/16 11/06/16 11/06/16 11/06/16 07:00 15:00 23:00 07:00 15:00 23:00 Intake Total 0 ml 360 ml 480 ml 480 ml Output Total 2 ml Balance -2 ml 360 ml 480 ml 480 ml Intake Oral 0 ml 360 ml 480 ml 480 ml Output Urine Total 2 ml # Voids 2 0 3 # Bowel Movements 0 0 0 Result Diagram: 11/05/16 0440 11/05/16 0440 Imaging Last Impressions Hepatobiliary Scan Nuclear Medicine 11/05/16 0000 Signed Impressions: Service Date/Time: Saturday, November 05, 2016 08:21 - CONCLUSION: Negative for cystic duct or common duct obstruction. Miguel Guadarrama MD FACR Chest X-Ray 10/28/16 0000 Signed Impressions: Service Date/Time: Friday, October 28, 2016 00:56 - CONCLUSION: No acute disease. Gamal Bravo MD Abdomen/Pelvis CT 10/25/16 0000 Signed Impressions: Service Date/Time: October 15:44 - CONCLUSION: 1. Mild inflammatory or edematous changes around the pancreas and also around the distal duodenum. Differential diagnosis includes mild pancreatitis and duodenitis. Findings are similar to October 21. 2. New subsegmental air space disease noted in the medial segment right middle lobe and right lower lobe. Joseph Dixon MD Objective Remarks GENERAL: NAD, A&Ox3 HEAD: Normocephalic. NECK: Supple, trachea midline. No lymphadenopathy. EYES: No scleral icterus. No injection or drainage. CARDIOVASCULAR: Regular rate and rhythm without murmurs, gallops, or rubs. RESPIRATORY: Breath sounds equal bilaterally. No accessory muscle use. GASTROINTESTINAL: Abdomen soft, non-tender, nondistended. Mild epigastric tenderness. MUSCULOSKELETAL: No cyanosis, or edema. SKIN: Warm and dry. NEURO: No focal neurological deficits. Procedures EGD 10/30 Medications and IVs Current Medications Medications (Trade) Dose Ordered Sig/Fercho Route Start Time Stop Time Status Last Admin (NS Flush) 2 ml UNSCH PRN IV FLUSH 10/21/16 22:45 11/01/16 05:37 (NS Flush) 2 ml BID IV FLUSH 10/22/16 09:00 11/06/16 08:40 (Zofran Inj) 4 mg Q6H PRN IVP 10/21/16 22:45 10/27/16 21:37 (Tylenol) 650 mg Q6H PRN PO 10/21/16 22:45 11/02/16 17:36 (Roxicodone) 5 mg Q4H PRN PO 10/21/16 22:45 11/04/16 13:54 (Milk Of Magnesia Liq) 30 ml Q12H PRN PO 10/21/16 22:45 11/04/16 17:46 (Senokot) 17.2 mg Q12H PRN PO 10/21/16 22:45 10/28/16 06:19 (Dulcolax Supp) 10 mg DAILY PRN RECTAL 10/21/16 22:45 (Lactulose Liq) 30 ml DAILY PRN PO 10/21/16 22:45 11/03/16 08:15 (Vitamin B1) 100 mg DAILY PO 10/25/16 09:00 11/06/16 08:36 (Romazicon Inj) 0.2 mg Q1M PRN IV PUSH 10/21/16 22:45 (Ativan) 1 mg Q4H PRN PO 10/21/16 22:45 10/27/16 21:31 (Ativan Inj) 1 mg Q4H PRN IV PUSH 10/21/16 22:45 10/29/16 02:19 (Ativan) 2 mg Q2H PRN PO 10/21/16 22:45 (Ativan Inj) 2 mg Q2H PRN IV PUSH 10/21/16 22:45 (Ativan Inj) 2 mg Q1H PRN IV PUSH 10/21/16 22:45 (Ativan Inj) 2 mg Q15M PRN IV PUSH 10/21/16 22:45 (Haldol Inj) 2 mg Q15M PRN IM 10/21/16 22:45 (Habitrol 21 Mg Patch.24 Hr) 1 patch DAILY T-DERMAL 10/24/16 17:00 11/06/16 08:37 Miscellaneous Information 1 HS T-DERMAL 10/24/16 21:00 11/05/16 21:27 (Catapres) 0.1 mg Q6H PRN PO 10/25/16 09:45 11/06/16 05:51 (Carafate Liq) 1 gm ACHS PO 10/27/16 16:00 11/06/16 05:35 (Zantac Liq) 150 mg Q12HR PO 10/27/16 21:00 11/06/16 08:36 (Peridex 0.12% Liq) 15 ml BID@08,20 MT 10/28/16 08:00 11/05/16 21:27 (Beneprotein Powder) 1 pack TID G-TUBE 10/28/16 09:00 (Apresoline Inj) 10 mg Q4HR PRN IV 10/29/16 07:45 10/29/16 11:24 (Deltasone) 20 mg DAILY PO 10/30/16 09:00 11/06/16 08:36 (Reglan Inj) 10 mg Q8HR IV PUSH 10/30/16 14:00 11/06/16 05:35 (Hydrodiuril) 12.5 mg DAILY PO 10/31/16 09:00 11/06/16 08:36 (Pill Splitter) 1 ea UNSCH PRN OTHER 10/30/16 14:00 (Naprosyn) 250 mg Q12H PO 11/03/16 09:00 11/06/16 08:36 (Tylenol) 500 mg Q12HR PO 11/03/16 09:00 11/06/16 08:36 (Roxicodone) 10 mg Q4H PRN PO 11/03/16 12:15 Hold 11/06/16 09:40 (Restoril) 15 mg HS PRN PO 11/03/16 13:00 11/04/16 01:26 A/P Problem List: (1) Pancreatitis ICD Code: K85.90 Status: Acute (2) Duodenitis ICD Code: K29.80 Status: Acute (3) Bandemia ICD Code: D72.825 Status: Acute (4) Alcohol abuse ICD Code: F10.10 Status: Acute Assessment and Plan 56-year-old male admitted with alcohol-related pancreatitis. Persisting abdominal pain. Recurrent pancreatitis discovered on's 11/03/16. IV fluids discontinued. Monitor lipase level to determine stability. Lipase still within normal limits though increased form previous day. Will start tapering pain medication today. If lipase levels remain stable or improve and has been weaned from his pain treatments with anticipation for discharge can occur. Angioedema Reaction to lisinopril which is being used to treat his hypertensive urgency. Now resolved Follow for any recurrence Acute Pancreatitis Duoedenitis/gastritis Gastroparesis Continue Regular low fat diet Weaned Oxycodone to 5mg q4hr daily GI currently signed off Continue Carafate Monitor for improvement repeat Lipase level in the am Elevated LFT's Alcohol versus hepatitis C This is not acutely progressive Alcohol Abuse Multivitamin folic acid Thiamine No further DVTs [facility] protocol Thrombocytopenia Secondary to alcohol Follow CBC HTN Continue hydrochlorothiazide Avoid lisinopril DVT Prophylaxis SCD/Teds. Discharge Planning Anticipate discharge tomorrow with continued wean of pain medications Christiano Paz MD R2 Nov 06, 2016 13:13
[2016-11-06 16:00] VITALS: BP 132/79; PULSE 61; RESP 16; TEMP 97.7; O2SAT 97
[2016-11-06 20:00] VITALS: BP 154/96; PULSE 67; RESP 18; TEMP 97.5; O2SAT 97
[2016-11-06] MEDS: REMOVE OLD NICODERM (NICOTINE) PATCH T-DERMAL SCH (21:00)
[2016-11-07] VITALS: BP 136/91; PULSE 62; RESP 18; TEMP 97.4; O2SAT 96
[2016-11-07 04:00] VITALS: BP 170/98; PULSE 60; RESP 18; TEMP 97.4; O2SAT 98
[2016-11-07 05:54] LABS: ALKALINE PHOSPHATASE 41 U/L (45-117); ALT (GPT) 49 U/L (12-78); ANION GAP 9 MEQ/L (5-15); AST (GOT) 28 U/L (15-37); BICARBONATE 27.7 MEQ/L (21.0-32.0); BLOOD UREA NITROGEN 14 MG/DL (7-18); CHLORIDE 99 MEQ/L (98-107); GLOMERULAR FILTRATION RATE 104 ML/MIN (>89); POTASSIUM 3.8 MEQ/L (3.5-5.1); SODIUM (NA) 136 MEQ/L (136-145); TOTAL BILIRUBIN ADULT 0.8 MG/DL (0.2-1.0)
[2016-11-07] MEDS: SUCRALFATE 1 GM/10 ML CUP PO SCH ×3 (06:09→16:26)
[2016-11-07] MEDS: METOCLOPRAMIDE HCL 10 MG/2 ML VIAL IV PUSH SCH (06:09)
[2016-11-07 07:23] VITALS: BP 160/100
[2016-11-07] MEDS: CHLORHEXIDINE 0.12% (ORAL KIT) 15 ML CUP MT SCH (08:00)
[2016-11-07 08:05] VITALS: BP 167/99; PULSE 60; RESP 18; TEMP 97.7; O2SAT 98
[2016-11-07] MEDS: BENEPROTEIN POWDER 1 PACK G-TUBE SCH (09:00)
[2016-11-07] MEDS: SODIUM CHLORIDE 0.9% FLUSH 10 ML FLUSH IV FLUSH SCH (09:00)
--- NOTE | 2016-11-07 09:56 | HHI.PR ---
Subjective Remarks This is a pleasant 56 y/o male with History of Alcohol abuse who developed sudden onset of Epigastric pain, Lipase level improved, tapered down his opioids, at this time stable in his bedroom ready for discharge asking for medicine for his Hypertension and his pain. Objective Vital Signs Date Time Temp Pulse Resp B/P Pulse Ox O2 Delivery O2 Flow Rate FiO2 11/07/16 08:05 97.7 60 18 167/99 98 11/07/16 07:23 160/100 11/07/16 06:10 21 11/07/16 04:00 97.4 60 18 170/98 98 11/07/16 00:00 97.4 62 18 136/91 96 11/06/16 23:30 22 11/06/16 20:00 97.5 67 18 154/96 97 11/06/16 16:00 97.7 61 16 132/79 97 I/O 11/06/16 11/06/16 11/06/16 11/07/16 11/07/16 11/07/16 07:00 15:00 23:00 07:00 15:00 23:00 Intake Total 480 ml 900 ml 220 ml Balance 480 ml 900 ml 220 ml Intake Oral 480 ml 900 ml 220 ml # Voids 3 4 3 1 # Bowel Movements 0 1 Result Diagram: 11/05/16 0440 11/07/16 0350 Imaging Last Impressions Hepatobiliary Scan Nuclear Medicine 11/05/16 0000 Signed Impressions: Service Date/Time: Saturday, November 05, 2016 08:21 - CONCLUSION: Negative for cystic duct or common duct obstruction. Miguel Guadarrama MD FACR Chest X-Ray 10/28/16 0000 Signed Impressions: Service Date/Time: Friday, October 28, 2016 00:56 - CONCLUSION: No acute disease. Gamal Bravo MD Abdomen/Pelvis CT 10/25/16 0000 Signed Impressions: Service Date/Time: October 15:44 - CONCLUSION: 1. Mild inflammatory or edematous changes around the pancreas and also around the distal duodenum. Differential diagnosis includes mild pancreatitis and duodenitis. Findings are similar to October 21. 2. New subsegmental air space disease noted in the medial segment right middle lobe and right lower lobe. Joseph Dixon MD Procedures EGD 10/30 Other Results Laboratory Tests Test 11/03/16 11/05/16 11/07/16 06:55 04:40 03:50 Phosphorus Level 2.7 MG/DL White Blood Count 5.6 TH/MM3 Red Blood Count 3.81 MIL/MM3 Hemoglobin 12.4 GM/DL Hematocrit 36.3 % Mean Corpuscular Volume 95.1 FL Mean Corpuscular Hemoglobin 32.6 PG Mean Corpuscular Hemoglobin 34.3 % Concent Red Cell Distribution Width 14.3 % Platelet Count 230 TH/MM3 Mean Platelet Volume 6.6 FL Sodium Level 136 MEQ/L Potassium Level 3.8 MEQ/L Chloride Level 99 MEQ/L Carbon Dioxide Level 27.7 MEQ/L Anion Gap 9 MEQ/L Blood Urea Nitrogen 14 MG/DL Creatinine 0.78 MG/DL Estimat Glomerular Filtration 104 ML/MIN Rate Random Glucose 104 MG/DL Calcium Level 9.5 MG/DL Total Bilirubin 0.8 MG/DL Aspartate Amino Transf 28 U/L (AST/SGOT) Alanine Aminotransferase 49 U/L (ALT/SGPT) Alkaline Phosphatase 41 U/L Total Protein 7.1 GM/DL Albumin 3.5 GM/DL Lipase 305 U/L Objective Remarks GENERAL: NAD, A&Ox3 HEAD: Normocephalic. NECK: Supple, trachea midline. No lymphadenopathy. EYES: No scleral icterus. No injection or drainage. CARDIOVASCULAR: Regular rate and rhythm without murmurs, gallops, or rubs. RESPIRATORY: Breath sounds equal bilaterally. No accessory muscle use. GASTROINTESTINAL: Abdomen soft, non-tender, nondistended. Mild epigastric tenderness. MUSCULOSKELETAL: No cyanosis, or edema. SKIN: Warm and dry. NEURO: No focal neurological deficits. Medications and IVs Current Medications Medications (Trade) Dose Ordered Sig/Fercho Route Start Time Stop Time Status Last Admin (NS Flush) 2 ml UNSCH PRN IV FLUSH 10/21/16 22:45 11/01/16 05:37 (NS Flush) 2 ml BID IV FLUSH 10/22/16 09:00 11/06/16 22:32 (Zofran Inj) 4 mg Q6H PRN IVP 10/21/16 22:45 10/27/16 21:37 (Tylenol) 650 mg Q6H PRN PO 10/21/16 22:45 11/02/16 17:36 (Roxicodone) 5 mg Q4H PRN PO 10/21/16 22:45 11/07/16 05:09 (Milk Of Magnesia Liq) 30 ml Q12H PRN PO 10/21/16 22:45 11/04/16 17:46 (Senokot) 17.2 mg Q12H PRN PO 10/21/16 22:45 10/28/16 06:19 (Dulcolax Supp) 10 mg DAILY PRN RECTAL 10/21/16 22:45 (Lactulose Liq) 30 ml DAILY PRN PO 10/21/16 22:45 11/03/16 08:15 (Vitamin B1) 100 mg DAILY PO 10/25/16 09:00 11/06/16 08:36 (Romazicon Inj) 0.2 mg Q1M PRN IV PUSH 10/21/16 22:45 (Haldol Inj) 2 mg Q15M PRN IM 10/21/16 22:45 (Habitrol 21 Mg Patch.24 Hr) 1 patch DAILY T-DERMAL 10/24/16 17:00 11/06/16 08:37 Miscellaneous Information 1 HS T-DERMAL 10/24/16 21:00 11/06/16 21:00 (Catapres) 0.1 mg Q6H PRN PO 10/25/16 09:45 11/06/16 05:51 (Carafate Liq) 1 gm ACHS PO 10/27/16 16:00 11/07/16 06:09 (Zantac Liq) 150 mg Q12HR PO 10/27/16 21:00 11/06/16 22:32 (Peridex 0.12% Liq) 15 ml BID@08,20 MT 10/28/16 08:00 11/05/16 21:27 (Beneprotein Powder) 1 pack TID G-TUBE 10/28/16 09:00 (Apresoline Inj) 10 mg Q4HR PRN IV 10/29/16 07:45 10/29/16 11:24 (Deltasone) 20 mg DAILY PO 10/30/16 09:00 11/06/16 08:36 (Reglan Inj) 10 mg Q8HR IV PUSH 10/30/16 14:00 11/07/16 06:09 (Hydrodiuril) 12.5 mg DAILY PO 10/31/16 09:00 11/06/16 08:36 (Pill Splitter) 1 ea UNSCH PRN OTHER 10/30/16 14:00 (Naprosyn) 250 mg Q12H PO 11/03/16 09:00 11/06/16 22:32 (Tylenol) 500 mg Q12HR PO 11/03/16 09:00 11/06/16 22:29 (Roxicodone) 10 mg Q4H PRN PO 11/03/16 12:15 Hold 11/06/16 09:40 (Restoril) 15 mg HS PRN PO 11/03/16 13:00 11/04/16 01:26 A/P Assessment and Plan 56-year-old male admitted with alcohol-related pancreatitis. Persisting abdominal pain. Recurrent pancreatitis discovered on's 11/03/16. IV fluids discontinued. Monitor lipase level to determine stability. Lipase still within normal limits though increased form previous day. Will start tapering pain medication today. If lipase levels remain stable or improve and has been weaned from his pain treatments with anticipation for discharge can occur. Angioedema Reaction to lisinopril which is being used to treat his hypertensive urgency. Now resolved Follow for any recurrence Acute Pancreatitis Duoedenitis/gastritis Gastroparesis Continue Regular low fat diet Weaned Oxycodone to 5mg q4hr daily GI currently signed off Continue Carafate Monitor for improvement repeat Lipase level in the am Elevated LFT's Alcohol versus hepatitis C This is not acutely progressive Alcohol Abuse Multivitamin folic acid Thiamine No further DVTs CIWA protocol Thrombocytopenia Secondary to alcohol Follow CBC HTN controlled. Continue hydrochlorothiazide Avoid lisinopril DVT Prophylaxis SCD/Teds. Discharge Planning Discharge home today. Tate Maria MD Nov 07, 2016 09:56
[2016-11-07] MEDS: THIAMINE HCL 100 MG TAB PO SCH (10:06)
[2016-11-07] MEDS: ACETAMINOPHEN 500 MG CPLT PO SCH (10:06)
[2016-11-07] MEDS: NICOTINE 21 MG/24 HR PATCH T-DERMAL SCH (10:06)
[2016-11-07] MEDS: predniSONE 20 MG TAB PO SCH (10:06)
[2016-11-07] MEDS: RANITIDINE HCL SYRUP 150 MG/10 ML UDC PO SCH (10:06)
[2016-11-07] MEDS: NAPROXEN 250 MG TAB PO SCH (10:07)
[2016-11-07] MEDS: HYDROCHLOROTHIAZIDE 25 MG TAB PO SCH (10:07)
[2016-11-07] MEDS ORDERED: OXYC-392 PO (11:09)
[2016-11-07] MEDS ORDERED: HYDR25TA5 PO (11:09)
[2016-11-07] MEDS ORDERED: GNP100TA3 PO (11:09)
[2016-11-07] MEDS ORDERED: RANI300T PO (11:09)
[2016-11-07] MEDS ORDERED: PRED10 PO (11:09)
[2016-11-07] MEDS ORDERED: NICO21DI25 T-DERMAL (11:09)
--- NOTE | 2016-11-07 11:19 | HHI.DS ---
Discharge Summary Admission Date Oct 21, 2016 at 22:40 Discharge Date: Nov 07, 2016 Admitting Diagnosis Acute Alcoholic Pancreatitis and Duodenitis (1) Pancreatitis ICD Code: K85.90 Diagnosis: Principal (2) Duodenitis ICD Code: K29.80 Diagnosis: Principal (3) Bandemia ICD Code: D72.825 Diagnosis: Principal (4) Alcohol abuse ICD Code: F10.10 Diagnosis: Principal (5) Angioedema ICD Code: T78.3XXA Diagnosis: Principal Procedures EGD 10/30 Brief History - From Admission This is a 56-year-old male with a PMH of Alcohol Abuse and Tobacco Abuse who was brought to the ER by EMS secondary to complaints of severe epigastric pain in addition to nausea and vomiting. Per patient he was drinking at a bar when he had acute onset of epigastric pain in addition to multiple episodes of nausea and vomiting. Denies hematemesis. No reported fever, chills or diarrhea. On arrival, BP 121/98, HR 108, O2 sat 97% on RA, Afebrile. CBC essentially unremarkable except for bandemia of 8%. Chemistry essentially unremarkable except for elevated LFTs elevated in comparison to previous labs from 02/08/15. He 5. Troponin negative. INR 1.0. UA negative. Alcohol 324. CXR with no acute findings. S/p Zosyn in ER. CBC/BMP: 11/05/16 0440 11/07/16 0350 Significant Findings Laboratory Tests Test 11/05/16 11/07/16 04:40 03:50 Red Blood Count 3.81 MIL/MM3 (4.50-5.90) Hemoglobin 12.4 GM/DL (13.0-17.0) Hematocrit 36.3 % (39.0-51.0) Mean Platelet Volume 6.6 FL (7.0-11.0) Calcium Level 8.3 MG/DL (8.5-10.1) Alkaline Phosphatase 41 U/L (45-117) Imaging Last Impressions Hepatobiliary Scan Nuclear Medicine 11/05/16 0000 Signed Impressions: Service Date/Time: Saturday, November 05, 2016 08:21 - CONCLUSION: Negative for cystic duct or common duct obstruction. Miguel Guadarrama MD FACR Chest X-Ray 10/28/16 0000 Signed Impressions: Service Date/Time: Friday, October 28, 2016 00:56 - CONCLUSION: No acute disease. Gamal Bravo MD Abdomen/Pelvis CT 10/25/16 0000 Signed Impressions: Service Date/Time: October 15:44 - CONCLUSION: 1. Mild inflammatory or edematous changes around the pancreas and also around the distal duodenum. Differential diagnosis includes mild pancreatitis and duodenitis. Findings are similar to October 21. 2. New subsegmental air space disease noted in the medial segment right middle lobe and right lower lobe. Joseph Dixon MD PE at Discharge GENERAL: NAD, A&Ox3 HEAD: Normocephalic. NECK: Supple, trachea midline. No lymphadenopathy. EYES: No scleral icterus. No injection or drainage. CARDIOVASCULAR: Regular rate and rhythm without murmurs, gallops, or rubs. RESPIRATORY: Breath sounds equal bilaterally. No accessory muscle use. GASTROINTESTINAL: Abdomen soft, non-tender, nondistended. Mild epigastric tenderness. MUSCULOSKELETAL: No cyanosis, or edema. SKIN: Warm and dry. NEURO: No focal neurological deficits. Hospital Course This is a pleasant 56 y/o male with History of Alcohol abuse who developed sudden onset of Epigastric pain, Lipase level improved, tapered down his opioids, at this time stable in his bedroom ready for discharge asking for medicine for his Hypertension and his pain. the patient was intubated and extubated due to Angioedema. Assessment and Plan 56-year-old male admitted with alcohol-related pancreatitis. Persisting abdominal pain. Recurrent pancreatitis discovered on's 11/03/16. IV fluids discontinued. Monitor lipase level to determine stability. Lipase still within normal limits though increased form previous day. Will start tapering pain medication today. If lipase levels remain stable or improve and has been weaned from his pain treatments with anticipation for discharge can occur. Angioedema Reaction to lisinopril which is being used to treat his hypertensive urgency. Now resolved continue Prednisone titrated dosages and discontinue. Acute Pancreatitis Duoedenitis/gastritis Gastroparesis Continue Regular low fat diet Weaned Oxycodone to 5mg q4hr daily GI currently signed off Continue Carafate Monitor for improvement Elevated LFT's Alcohol versus hepatitis C This is not acutely progressive Alcohol Abuse Multivitamin folic acid Thiamine No further DVTs CIWA protocol Thrombocytopenia Secondary to alcohol Follow CBC HTN mild uncontrol today, will continue HCTZ and avoid Lisinopril. DVT Prophylaxis SCD/Teds. Discharge Planning Discharge home today. Pt Condition on Discharge: Good Discharge Disposition: Discharge Home Discharge Time: > 30 minutes Discharge Instructions DIET: Follow Instructions for: Heart Healthy Diet Activities you can perform: Regular-No Restrictions Tate Maria MD Nov 07, 2016 11:19
[2016-11-07 12:05] VITALS: BP 129/84; PULSE 58; RESP 18; TEMP 98; O2SAT 97
== END 2016-11-07 18:09 | disposition home or self-care (01) | DRG 439 ==
LOC: NEPE 18:41 → NEDA 22:40 → HOCB 10-22 00:06 → HOCA 10-26 16:48 → HIMN 10-27 20:45 → N04A 10-29 17:19
PROVIDERS: ADMIT Internal Medicine; ATTEND Internal Medicine
PROC: 5A1935Z Respiratory Ventilation, Less than 24 Consecutive Hours (ICD-10-PCS; principal; 2016-10-28)
PROC: 0BH17EZ Insertion of Endotracheal Airway into Trachea, Via Natural or Artificial Opening (ICD-10-PCS; 2016-10-28)
PROC: 0DB68ZX Excision of Stomach, Via Natural or Artificial Opening Endoscopic, Diagnostic (ICD-10-PCS; 2016-10-30)
DX: K85.20 Alcohol induced acute pancreatitis without necrosis or infection (principal); F10.231 Alcohol dependence with withdrawal delirium; D69.59 Other secondary thrombocytopenia; I15.8 Other secondary hypertension; K31.84 Gastroparesis; D72.825 Bandemia; K29.80 Duodenitis without bleeding; E87.6 Hypokalemia; E03.9 Hypothyroidism, unspecified; T78.3XXA Angioneurotic edema, initial encounter; T46.4X5A Adverse effect of angiotensin-converting-enzyme inhibitors, initial encounter; J98.8 Other specified respiratory disorders; K29.70 Gastritis, unspecified, without bleeding; B19.20 Unspecified viral hepatitis C without hepatic coma; I16.0 Hypertensive urgency; K86.1 Other chronic pancreatitis; F17.200 Nicotine dependence, unspecified, uncomplicated; Y90.8 Blood alcohol level of 240 mg/100 ml or more; Y92.239 Unspecified place in hospital as the place of occurrence of the external cause; Z59.0 Homelessness; Z86.14 Personal history of Methicillin resistant Staphylococcus aureus infection
CPT/HCPCS: 31500; 36600; 71010; 74177; 78227; 80048; 80053; 80074; 80307; 81001; 82550; 82805; 82948; 83690; 83735; 84100; 84436; 84443; 84481; 84484; 85007; 85025; 85027; 85610; 85730; 87522; 87641; 87902; 88305; 93005; 94002; 96361; 96374; 96375; 96376; A9537; C9113; J0171; J0360; J1170; J1200; J2060; J2250; J2270; J2405; J2543; J2765; J2805; J2930; J3010; J3411; J7030; J7040; J7050; J7512; Q9963; Q9967

== ENCOUNTER 2016-11-27 17:48 | Emergency (ER) | payer OTHER ==
[~2016-11-27] VITALS: Ht 175.3 cm; Wt 70.0 kg
[~2016-11-27 17:48] MED LIST changes: +GNP100TA3 PO; +HYDR25TA5 PO; +NICO21DI25 T-DERMAL; +OXYC-392 PO; +PRED10 PO; +RANI300T PO; -TRIAPOW TOPICAL
[2016-11-27 19:45] VITALS: BP 158/71; PULSE 98; RESP 18; TEMP 98.3; O2SAT 96
[2016-11-27] MEDS ORDERED: SODIUM CHLOR 0.9% 1000 ML INJ 1,000 ML IV SCH (19:53)
--- NOTE | 2016-11-27 19:57 | PD ---
HPI Chief Complaint: abdominal pain Time Seen by Provider: 19:45 Travel History International Travel<30 days: No Contact w/Intl Traveler<30days: No Traveled to known affect area: No History of Present Illness HPI This is a 56-year-old male presents via EMS for evaluation of abdominal pain. Symptoms started 1 or 2 hours prior to arrival. Pain is epigastric in location , constant, aching, worse with palpation. It does not radiate into the chest, back. He endorses some nausea. Denies flank pain, dysuria, fevers or chills, chest pain or shortness of breath. He does endorse wheezing and cough which is chronic. The patient has a history of alcoholic pancreatitis, he was admitted on October 21 for pancreatitis and duodenitis. He reports that he drinks daily, today he drank 2 beers. In addition the patient is complaining of an abscess in the left axilla which started 2 days ago. This is painful, throbbing, constant, worse with palpation. Denies drainage. Denies fevers or chills. No other complaints. PFSH Past Medical History Hx Anticoagulant Therapy: No Cancer: No Cardiovascular Problems: No Chemotherapy: No Cerebrovascular Accident: No Diabetes: No Diminished Hearing: No Endocrine: Yes Gastrointestinal Disorders: Yes Genitourinary: No Musculoskeletal: No Neurologic: No Psychiatric: No Reproductive: No (Had vasectomy) Respiratory: No (Denies problems, is a smoker.) Seizures: No Thyroid Disease: Yes Past Surgical History Genitourinary Surgery: Yes (VASECTOMY) Other Surgery: Yes (SINUS SURGERY) Social History Alcohol Use: Yes (FREQUENTLY ) Tobacco Use: Yes (1PPD) Substance Use: No Allergies-Medications (Allergen,Severity, Reaction): Coded Allergies: Lisinopril (Verified Allergy, Severe, Angioedema, 11/27/16) *MDRO Multi-Drug Resistant Organism (Verified Adverse Reaction, Unknown, MRSA, 11/27/16) MRSA (arm)-08/21/16 Reported Meds & Prescriptions Reported Meds & Active Scripts Active Prednisone 10 Mg Tab 10 Mg PO DAILY Ranitidine (Ranitidine HCl) 300 Mg Tab 300 Mg PO DAILY Gnp Vitamin B-1 (Thiamine HCl) 100 Mg Tab 100 Mg PO DAILY Oxycodone (Oxycodone HCl) 5 Mg Tab 5 Mg PO Q4H PRN Eq Nicotine (Nicotine) 21 Mg/24 Hr Dis 1 Patch T-DERMAL DAILY Hydrochlorothiazide 25 Mg Tab 12.5 Mg PO DAILY Review of Systems Except as stated in HPI: all other systems reviewed are Neg Physical Exam Narrative GENERAL: Well-developed well-nourished male who appears uncomfortable on initial examination. SKIN: Warm and dry. There is a 2 cm fluctuant abscess in the left axilla. Tender to palpation. HEAD: Atraumatic. Normocephalic. EYES: Pupils equal and round. No scleral icterus. No injection or drainage. ENT: No nasal bleeding or discharge. Mucous membranes pink and moist. NECK: Trachea midline. No JVD. CARDIOVASCULAR: Regular rate and rhythm. No murmur appreciated. RESPIRATORY: No accessory muscle use. Wheezing bilaterally. GASTROINTESTINAL: Abdomen soft, tender to palpation in the epigastrium without guarding. MUSCULOSKELETAL: No obvious deformities. No clubbing. No cyanosis. No edema. NEUROLOGICAL: Awake and alert. No obvious cranial nerve deficits. Motor grossly within normal limits. Normal speech. PSYCHIATRIC: Appropriate mood and affect; insight and judgment normal. Data Data Last Documented VS Vital Signs Date Time Temp Pulse Resp B/P Pulse Ox O2 Delivery O2 Flow Rate FiO2 11/27/16 21:51 18 99 Room Air 11/27/16 19:45 98.3 98 158/71 Orders Complete Blood Count With Diff (11/27/16 19:53) Comprehensive Metabolic Panel (11/27/16 19:53) Lipase (11/27/16 19:53) Iv Access Insert/Monitor (11/27/16 19:53) Ecg Monitoring (11/27/16 19:53) Oximetry (11/27/16 19:53) Morphine Inj (Morphine Inj) (11/27/16 20:00) Ondansetron Inj (Zofran Inj) (11/27/16 20:00) Sodium Chlor 0.9% 1000 Ml Inj (Ns 1000 M (11/27/16 19:53) Sodium Chloride 0.9% Flush (Ns Flush) (11/27/16 20:00) Electrocardiogram (11/27/16 19:53) Chest, Single Ap (11/27/16 19:53) Wound Culture And Gram Stain (11/27/16 19:53) Vancomycin Inj (Vancomycin Inj) (11/27/16 20:45) Hydromorphone Pf Inj (Dilaudid Pf Inj) (11/27/16 21:30) Lactic Acid (11/27/16 21:58) Ct Abd/Pel W Iv Contrast(Rout) (11/27/16 ) Labs Laboratory Tests Test 11/27/16 21:00 White Blood Count 9.0 TH/MM3 Red Blood Count 3.80 MIL/MM3 Hemoglobin 12.9 GM/DL Hematocrit 36.4 % Mean Corpuscular Volume 95.8 FL Mean Corpuscular Hemoglobin 33.8 PG Mean Corpuscular Hemoglobin 35.3 % Concent Red Cell Distribution Width 15.0 % Platelet Count 108 TH/MM3 Mean Platelet Volume 6.2 FL Neutrophils (%) (Auto) 70.4 % Lymphocytes (%) (Auto) 18.4 % Monocytes (%) (Auto) 10.6 % Eosinophils (%) (Auto) 0.2 % Basophils (%) (Auto) 0.4 % Neutrophils # (Auto) 6.3 TH/MM3 Lymphocytes # (Auto) 1.7 TH/MM3 Monocytes # (Auto) 1.0 TH/MM3 Eosinophils # (Auto) 0.0 TH/MM3 Basophils # (Auto) 0.0 TH/MM3 CBC Comment DIFF FINAL Differential Comment Sodium Level 136 MEQ/L Potassium Level 4.0 MEQ/L Chloride Level 102 MEQ/L Carbon Dioxide Level 18.3 MEQ/L Anion Gap 16 MEQ/L Blood Urea Nitrogen 9 MG/DL Creatinine 0.79 MG/DL Estimat Glomerular Filtration 102 ML/MIN Rate Random Glucose 66 MG/DL Calcium Level 8.3 MG/DL Total Bilirubin 1.2 MG/DL Aspartate Amino Transf 53 U/L (AST/SGOT) Alanine Aminotransferase 52 U/L (ALT/SGPT) Alkaline Phosphatase 85 U/L Total Protein 7.6 GM/DL Albumin 3.2 GM/DL Lipase 238 U/L [facility] Medical Decision Making Medical Screen Exam Complete: Yes Emergency Medical Condition: Yes Medical Record Reviewed: Yes Interpretation(s) EKG sinus tachycardia, rate 103 Differential Diagnosis Pancreatitis, biliary colic, cholecystitis, aortic dissection, acute coronary syndrome, gastritis, obstruction Narrative Course This is a 56-year-old male with known history of pancreatitis who presents for evaluation of several hours of epigastric abdominal pain which is consistent with his previous pancreatitis pain. He endorses daily alcohol use. In addition he is complaining of an abscessed left axilla which started 2 days ago. Examination reveals to severe fluctuant abscess. The abscess was incised and drained, he verbally consented, wound culture was ordered and he will be started on vancomycin. Plan is for basic lab work, chest x-ray, EKG. He will be given IV fluids, Zofran, morphine. He was given an additional 0.5 mg dose of Dilaudid as his pain was persistent. 2210: This patient was signed out to Dr. Craig once he was moved off of the ambulance hallway and into the [facility]. Procedures Procedure Narrative INCISION AND DRAINAGE OF ABSCESS: The area was prepped and was sterilely draped. A subcutaneous wheal of 1% Xylocaine with epinephrine with a total number 7 mL was used to anesthetize the area. The area was properly anesthetized. A number 11 scalpel was used to make a 1-cm incision across the area of the abscess. Cultures were obtained. The abscess was drained an irrigated with normal saline. EKG Prior to Arrival: Yes Austen York Nov 27, 2016 19:57
[2016-11-27] MEDS ORDERED: ONDANSETRON HCL 4 MG/2 ML VIAL IVP ONE (20:00)
[2016-11-27] MEDS ORDERED: MORPHINE SULFATE 4 MG/ML INJ IV PUSH ONE (20:00)
[2016-11-27] MEDS ORDERED: SODIUM CHLORIDE 0.9% FLUSH 10 ML FLUSH IV FLUSH PRN (20:00)
--- NOTE | 2016-11-27 20:18 | RADRPT ---
EXAM DATE/TIME: 11/27/2016 20:05 [facility] COMPARISON: CHEST SINGLE AP, October 28, 2016, 0:56. INDICATIONS : Wheezing. MEDICAL HISTORY : Pancreatitis. Smoker SURGICAL HISTORY : Vasectomy ENCOUNTER: Initial ACUITY: 1 day PAIN SCORE: 8/10 LOCATION: Bilateral chest FINDINGS: A single view of the chest demonstrates the lungs to be symmetrically aerated without evidence of mas s, infiltrate or effusion. The cardiomediastinal contours are unremarkable. Osseous structures are intact. CONCLUSION: No acute disease. Gamal Bravo MD on November 27, 2016 at 20:16 Board Certified Radiologist. This report was verified electronically.
[2016-11-27] MEDS ORDERED: VANCOMYCIN INJ 1,000 MG in SODIUM CHLOR 0.9% 250 ML INJ 250 ML IV ONE (20:45)
[2016-11-27] MEDS ORDERED: HYDROmorphone HCL PF 1 MG/ML VIAL IV PUSH ONE (21:30)
[2016-11-27 21:31] LABS: AUTOMATED NEUTROPHIL # 6.3 TH/MM3 (1.8-7.7); BASOPHIL % 0.4 % (0.0-2.0); EOSINOPHIL % 0.2 % (0.0-4.0); HEMATOCRIT 36.4 % (39.0-51.0); HEMO FLAGS DIFF FINAL; LYMPH % 18.4 % (9.0-44.0); LYMPHOCYTE # 1.7 TH/MM3 (1.0-4.8); MEAN CELL VOLUME 95.8 FL (80.0-100.0); MEAN CORPUSCULAR HEMOGLOBIN 33.8 PG (27.0-34.0); MEAN CORPUSCULAR HGB CONC 35.3 % (32.0-36.0); MONO % 10.6 % (0.0-8.0); NEUT % 70.4 % (16.0-70.0); PLATELET COUNT 108 TH/MM3 (150-450)
[2016-11-27 21:44] LABS: ANION GAP 16 MEQ/L (5-15); AST (GOT) 53 U/L (15-37); BICARBONATE 18.3 MEQ/L (21.0-32.0); BLOOD UREA NITROGEN 9 MG/DL (7-18); CHLORIDE 102 MEQ/L (98-107); GLOMERULAR FILTRATION RATE 102 ML/MIN (>89); SODIUM (NA) 136 MEQ/L (136-145)
[2016-11-27 21:47] LABS: ALKALINE PHOSPHATASE 85 U/L (45-117); ALT (GPT) 52 U/L (12-78); TOTAL BILIRUBIN ADULT 1.2 MG/DL (0.2-1.0)
[2016-11-27 21:51] VITALS: RESP 18; O2SAT 99
--- NOTE | 2016-11-27 21:54 | PD ---
Physical Exam Date Seen by Provider: Nov 27, 2016 Time Seen by Provider: 21:52 Narrative The patient is a 56-year-old male was initially evaluated by the mid-level provider, Abhijeet York PAC. Please refer to the initial history, physical, diagnostic evaluation, and treatment modality plan. Data Data Last Documented VS Vital Signs Date Time Temp Pulse Resp B/P Pulse Ox O2 Delivery O2 Flow Rate FiO2 11/27/16 21:51 18 99 Room Air 11/27/16 19:45 98.3 98 158/71 Orders Complete Blood Count With Diff (11/27/16 19:53) Comprehensive Metabolic Panel (11/27/16 19:53) Lipase (11/27/16 19:53) Iv Access Insert/Monitor (11/27/16 19:53) Ecg Monitoring (11/27/16 19:53) Oximetry (11/27/16 19:53) Morphine Inj (Morphine Inj) (11/27/16 20:00) Ondansetron Inj (Zofran Inj) (11/27/16 20:00) Sodium Chlor 0.9% 1000 Ml Inj (Ns 1000 M (11/27/16 19:53) Sodium Chloride 0.9% Flush (Ns Flush) (11/27/16 20:00) Electrocardiogram (11/27/16 19:53) Chest, Single Ap (11/27/16 19:53) Wound Culture And Gram Stain (11/27/16 19:53) Vancomycin Inj (Vancomycin Inj) (11/27/16 20:45) Hydromorphone Pf Inj (Dilaudid Pf Inj) (11/27/16 21:30) Lactic Acid (11/27/16 21:58) Ct Abd/Pel W Iv Contrast(Rout) (11/27/16 ) Iohexol 350 Inj (Omnipaque 350 Inj) (11/27/16 23:18) Sodium Chlor 0.9% 1000 Ml Inj (Ns 1000 M (11/27/16 23:30) Labs Laboratory Tests Test 11/27/16 11/27/16 21:00 22:25 White Blood Count 9.0 TH/MM3 Red Blood Count 3.80 MIL/MM3 Hemoglobin 12.9 GM/DL Hematocrit 36.4 % Mean Corpuscular Volume 95.8 FL Mean Corpuscular Hemoglobin 33.8 PG Mean Corpuscular Hemoglobin 35.3 % Concent Red Cell Distribution Width 15.0 % Platelet Count 108 TH/MM3 Mean Platelet Volume 6.2 FL Neutrophils (%) (Auto) 70.4 % Lymphocytes (%) (Auto) 18.4 % Monocytes (%) (Auto) 10.6 % Eosinophils (%) (Auto) 0.2 % Basophils (%) (Auto) 0.4 % Neutrophils # (Auto) 6.3 TH/MM3 Lymphocytes # (Auto) 1.7 TH/MM3 Monocytes # (Auto) 1.0 TH/MM3 Eosinophils # (Auto) 0.0 TH/MM3 Basophils # (Auto) 0.0 TH/MM3 CBC Comment DIFF FINAL Differential Comment Sodium Level 136 MEQ/L Potassium Level 4.0 MEQ/L Chloride Level 102 MEQ/L Carbon Dioxide Level 18.3 MEQ/L Anion Gap 16 MEQ/L Blood Urea Nitrogen 9 MG/DL Creatinine 0.79 MG/DL Estimat Glomerular Filtration 102 ML/MIN Rate Random Glucose 66 MG/DL Calcium Level 8.3 MG/DL Total Bilirubin 1.2 MG/DL Aspartate Amino Transf 53 U/L (AST/SGOT) Alanine Aminotransferase 52 U/L (ALT/SGPT) Alkaline Phosphatase 85 U/L Total Protein 7.6 GM/DL Albumin 3.2 GM/DL Lipase 238 U/L Lactic Acid Level 2.8 mmol/L [facility] Medical Record Reviewed: Yes Supervised Visit with MICHELLE: Yes Interpretation(s) EKG reveals sinus tachycardia with a heart rate of 103. No ischemic changes noted. Laboratory Tests Test 11/27/16 11/27/16 21:00 22:25 White Blood Count 9.0 TH/MM3 Red Blood Count 3.80 MIL/MM3 Hemoglobin 12.9 GM/DL Hematocrit 36.4 % Mean Corpuscular Volume 95.8 FL Mean Corpuscular Hemoglobin 33.8 PG Mean Corpuscular Hemoglobin 35.3 % Concent Red Cell Distribution Width 15.0 % Platelet Count 108 TH/MM3 Mean Platelet Volume 6.2 FL Neutrophils (%) (Auto) 70.4 % Lymphocytes (%) (Auto) 18.4 % Monocytes (%) (Auto) 10.6 % Eosinophils (%) (Auto) 0.2 % Basophils (%) (Auto) 0.4 % Neutrophils # (Auto) 6.3 TH/MM3 Lymphocytes # (Auto) 1.7 TH/MM3 Monocytes # (Auto) 1.0 TH/MM3 Eosinophils # (Auto) 0.0 TH/MM3 Basophils # (Auto) 0.0 TH/MM3 CBC Comment DIFF FINAL Differential Comment Sodium Level 136 MEQ/L Potassium Level 4.0 MEQ/L Chloride Level 102 MEQ/L Carbon Dioxide Level 18.3 MEQ/L Anion Gap 16 MEQ/L Blood Urea Nitrogen 9 MG/DL Creatinine 0.79 MG/DL Estimat Glomerular Filtration 102 ML/MIN Rate Random Glucose 66 MG/DL Calcium Level 8.3 MG/DL Total Bilirubin 1.2 MG/DL Aspartate Amino Transf 53 U/L (AST/SGOT) Alanine Aminotransferase 52 U/L (ALT/SGPT) Alkaline Phosphatase 85 U/L Total Protein 7.6 GM/DL Albumin 3.2 GM/DL Lipase 238 U/L Lactic Acid Level 2.8 mmol/L Last Impressions Chest X-Ray 11/27/161952 Signed Impressions: Service Date/Time: Sunday, November 27, 2016 20:05 - CONCLUSION: No acute disease. Gamal Bravo MD Differential Diagnosis Differential diagnoses includes pancreatitis, duodenitis, gastritis, peptic ulcer disease, biliary colic, alcohol abuse. Narrative Course I, Dr. Craig, have reviewed the advance practice practitioner's documentation and am in agreement, met with the patient face to face, made the diagnosis, and the medical decision making was done by me. *My assessment and Findings: The patient is a 56-year-old male was initially evaluated by the mid-level provider. Please refer to the initial history, physical, diagnostic evaluation, and treatment modality plan. The patient complains of epigastric abdominal pain, very similar to his previous episode of pancreatitis. The patient had a workup including had a scan and CT the abdomen and pelvis on previous workup which revealed pancreatitis and duodenitis, however, I discussed was unremarkable. The patient does have a history of alcohol abuse, most likely resulting in his gastritis and/or pancreatitis. The patient was administered IV fluids, antiemetics, and analgesics for his epigastric abdominal pain. The patient's lipase is normal, however, CO2 is 18.3 and anion gap was 16. Therefore, lactic acid was ordered and CT of the abdomen and pelvis was ordered with IV contrast. The patient's lactic acid was mildly elevated at 2.8, therefore, the patient was administered a second liter of IV fluids. CT of the abdomen and pelvis reveals no acute findings, the previous inflammation around the pancreas has resolved. The patient will be discharged home on pain medication and antiemetics, he is advised to stop drinking alcohol. Diagnosis Primary Impression: Abdominal pain Qualified Code: R10.13 - Epigastric pain Patient Instructions: General Instructions Additional Instruction: Medications as directed. Alcohol cessation encouraged. Follow-up with a primary physician. Med/Other Pt SpecificInfo: Prescription(s) given Scripts Promethazine (Phenergan)25 Mg [id number] Mg PO Q6H PRN (NAUSEA OR VOMITING) #12 TAB Ref 0 Prov:Azael Craig MD 11/28/16 Hydrocodone-Acetaminophen (Melvin)5-325 mg Tab1 Tab PO Q6H PRN (PAIN) #12 TAB Ref 0 Prov:Azael Craig MD 11/28/16 Disposition: 01 DISCHARGE HOME Condition: Stable Azael Craig MD Nov 27, 2016 21:54
[2016-11-27] MEDS ORDERED: IOHEXOL 350 MG/ML 10 ML VIAL (for RAD DIAG) IV ONE (23:18)
[2016-11-27] MEDS ORDERED: SODIUM CHLOR 0.9% 1000 ML INJ 1,000 ML IV ONE (23:30)
--- NOTE | 2016-11-27 23:43 | RADRPT ---
EXAM DATE/TIME: 11/27/2016 23:09 [facility] COMPARISON: CT ABDOMEN & PELVIS W CONTRAST, October 21, 2016, 21:27. CT ABDOMEN & PELVIS W CONTRAST, October 25, 2016, 15:44. INDICATIONS : Epigastric pain. IV CONTRAST: 95 cc Omnipaque 350 (iohexol) IV ORAL CONTRAST: No oral contrast ingested. RADIATION DOSE: 6.31 CTDIvol (mGy) MEDICAL HISTORY : Pancreatitis. Hepatitis C. SURGICAL HISTORY : None. ENCOUNTER: Initial ACUITY: 1 day PAIN SCALE: 5/10 LOCATION: Bilateral upper quadrant TECHNIQUE: Volumetric scanning of the abdomen and pelvis was performed. Using automated exposure control and ad justment of the mA and/or kV according to patient size, radiation dose was kept as low as reasonably achievable to obtain optimal diagnostic quality images. DICOM format image data is available electro nically for review and comparison. FINDINGS: LOWER LUNGS: The visualized lower lungs are clear. LIVER: Liver density is indicative of steatosis. In the right liver there is a 5 mm nodular enhancing focus. There is no dilation of the biliary tree. No calcified gallstones. SPLEEN: Measures at the upper limits for normal in size at 13.2 cm. PANCREAS: Within normal limits. The inflammatory changes have resolved. KIDNEYS: Normal in size and shape. There is no mass, stone or hydronephrosis. ADRENAL GLANDS: Within normal limits. VASCULAR: There is no aortic aneurysm. There is moderate atherosclerotic disease. BOWEL/MESENTERY: The stomach, small bowel, and colon demonstrate no acute abnormality. There is no free intraperitone al air or fluid. ABDOMINAL WALL: Within normal limits. RETROPERITONEUM: There is no lymphadenopathy. BLADDER: No wall thickening or mass. REPRODUCTIVE: Within normal limits. INGUINAL: There is no lymphadenopathy or hernia. MUSCULOSKELETAL: There are bilateral pars defects of L5. No acute finding as visualized. CONCLUSION: 1. No acute finding is identified within the abdomen or pelvis. The pancreatic inflammatory changes d ocumented previously have resolved. 2. Hepatic steatosis with stable 5 mm nodular enhancing lesion in the right lobe of the liver. It is incompletely characterized on this exam. 3. Moderate atherosclerotic disease. Germán Odom MD on November 27, 2016 at 23:35 Board Certified Radiologist. This report was verified electronically.
[2016-11-28] MEDS ORDERED: PROM25TA10 PO (00:18)
[2016-11-28] MEDS ORDERED: NORC5TAB PO (00:18)
[2016-11-28] MEDS ORDERED: BACT800T5 PO (00:27)
[2016-11-28] MEDS ORDERED: HYDROmorphone HCL PF 1 MG/ML VIAL IV PUSH ONE (00:30)
--- NOTE | 2016-11-28 20:59 | EKG ---
Date Performed: 11/27/2016 Time Performed: 20:35:43 PTAGE: 56 years EKG: SINUS TACHYCARDIA ABNORMAL RHYTHM ECG PREVIOUS TRACING : 10/21/2016 19.31 Compared to prior tracing no significant change DOCTOR: Nidia Schwartz Interpretating Date/Time 11/28/2016 20:58:28
== END 2016-11-28 01:20 | disposition home or self-care (01) ==
LOC: NEDAMB 17:48 → NEPC 11-28 01:20
DX: R10.13 Epigastric pain (principal); B95.7 Other staphylococcus as the cause of diseases classified elsewhere; A49.02 Methicillin resistant Staphylococcus aureus infection, unspecified site; F17.200 Nicotine dependence, unspecified, uncomplicated; F10.10 Alcohol abuse, uncomplicated
CPT/HCPCS: 10060; 71010; 74177; 80053; 83605; 83690; 85025; 86403; 87070; 87186; 93005; 96361; 96365; 96375; 96376; 99285; J1170; J2270; J2405; J3370; J7030; J7050; Q9967; 87205

== ENCOUNTER 2017-01-06 10:32 | Emergency (ER) | payer OTHER ==
[~2017-01-06] VITALS: Ht 180.3 cm; Wt 75.0 kg
[~2017-01-06 10:32] MED LIST changes: +BACT800T5 PO; +NORC5TAB PO; +PROM25TA10 PO
[2017-01-06 10:43] VITALS: BP 131/90; PULSE 94; RESP 18; TEMP 98.6; O2SAT 97
[2017-01-06] MEDS ORDERED: synthroid (11:00)
--- NOTE | 2017-01-06 11:00 | PD ---
HPI Chief Complaint: Alcohol/Drug Intoxication Time Seen by Provider: 10:44 Travel History International Travel<30 days: No Contact w/Intl Traveler<30days: No Traveled to known affect area: No History of Present Illness HPI So 56 old man was brought into the emergent department by police as was found sleeping on the sidewalk intoxicated. He has no complaints. He is ambulatory. History Past Medical History Narrative Medical Hepatitis C MRSA Alcoholism Low thyroid Social History Alcohol Use: Yes (DAILY) Tobacco Use: Yes (1PPD) Allergies-Medications (Allergen,Severity, Reaction): Coded Allergies: lisinopril (Unverified Allergy, Severe, Angioedema, 12/19/16) *MDRO Multi-Drug Resistant Organism (Verified Adverse Reaction, Unknown, MRSA, 11/30/16) MRSA (arm)-08/21/16 MRSA (chest) 11/27/16 Reported Meds & Prescriptions Reported Meds & Active Scripts Active Bactrim DS (Sulfamethoxazole-Trimethoprim) 800-160 Mg Tab 1 Tab PO BID Phenergan (Promethazine HCl) 25 Mg Tablet 25 Mg PO Q6H PRN [place] (Hydrocodone-Acetaminophen) 5-325 mg Tab 1 Tab PO Q6H PRN Prednisone 10 Mg Tab 10 Mg PO DAILY Ranitidine (Ranitidine HCl) 300 Mg Tab 300 Mg PO DAILY Gnp Vitamin B-1 (Thiamine HCl) 100 Mg Tab 100 Mg PO DAILY Oxycodone (Oxycodone HCl) 5 Mg Tab 5 Mg PO Q4H PRN Eq Nicotine (Nicotine) 21 Mg/24 Hr Dis 1 Patch T-DERMAL DAILY Hydrochlorothiazide 25 Mg Tab 12.5 Mg PO DAILY Review of Systems Except as stated in HPI: all other systems reviewed are Neg Physical Exam Narrative GENERAL: 56 old man, little bit disheveled, nontoxic. SKIN: Warm and dry. CARDIOVASCULAR: Warm and well perfused. RESPIRATORY: Normal rate and effort. MUSCULOSKELETAL: No gross deformities. NEUROLOGICAL: Awake and alert. No gross deficits. Data Data Last Documented VS Vital Signs Date Time Temp Pulse Resp B/P (MAP) Pulse Ox O2 Delivery O2 Flow Rate FiO2 01/06/17 10:43 98.6 94 18 131/90 (104) 97 MDM Medical Decision Making Medical Screen Exam Complete: Yes Emergency Medical Condition: Yes Differential Diagnosis Intoxication, occult injuries, other Narrative Course Medical decision making 56 old man presents emergency Department with no real complaints. He was apparently intoxicated. The police brought him here and her [place] act. He is not an immediate threat to himself or others. He has no medical complaints. He stable for discharge. Diagnosis Primary Impression: Alcohol intoxication Referrals: [facility] day Additional Instructions: Drink alcohol in moderation are not at all. Follow-up with Tadeo Hilton if you desire to stop drinking. Return to the emergency department for any new or worsening symptoms. Med/Other Pt SpecificInfo: No Change to Meds Disposition: 01 DISCHARGE HOME Condition: Stable Kenneth Brink MD Jan 06, 2017 11:00
== END 2017-01-06 12:08 | disposition home or self-care (01) ==
LOC: NEPD 10:32
DX: F10.920 Alcohol use, unspecified with intoxication, uncomplicated (principal)
CPT/HCPCS: 99281

== ENCOUNTER 2017-05-13 09:56 | Emergency (ER) | payer OTHER ==
[~2017-05-13] VITALS: Ht 180.3 cm; Wt 75.0 kg
[~2017-05-13 09:56] MED LIST changes: -BACT800T5 PO; -GNP100TA3 PO; -HYDR25TA5 PO; -NICO21DI25 T-DERMAL; -NORC5TAB PO; -OXYC-392 PO; -PRED10 PO; -PROM25TA10 PO; -RANI300T PO; +synthroid
[2017-05-13 09:58] VITALS: BP 135/67; PULSE 114; RESP 18; TEMP 98.4; O2SAT 98
--- NOTE | 2017-05-13 10:05 | PD ---
HPI Chief Complaint: Respiratory Symptoms Time Seen by Provider: 10:05 Travel History International Travel<30 days: No Contact w/Intl Traveler<30days: No Traveled to known affect area: No History of Present Illness HPI 57-year-old male came to the emergency room with history of shortness of breath that's been going on for past couple days. Patient is a heavy smoker for many years. He does not have any inhalers. His symptoms were progressively worsening when he decided to come to the emergency room. No history of fever or chills. No history of chest pain. No history of recent long distance travel or history of DVT or PEs in the past. PFSH Past Medical History Narrative Medical List of his past medical, surgical, social and family history is reviewed from the nursing note. Hx Anticoagulant Therapy: No Cancer: No Cardiovascular Problems: No Chemotherapy: No Cerebrovascular Accident: No Diabetes: No Diminished Hearing: Yes ([place]) Endocrine: Yes Gastrointestinal Disorders: Yes Genitourinary: No Hepatitis: Yes (C) Musculoskeletal: No Neurologic: No Psychiatric: No Reproductive: No (Had vasectomy) Respiratory: No (Denies problems, is a smoker.) Pancreatitis: Yes Seizures: No Thyroid Disease: Yes Past Surgical History Genitourinary Surgery: Yes (VASECTOMY) Other Surgery: Yes (SINUS SURGERY) Social History Alcohol Use: Yes (DAILY) Tobacco Use: Yes (1PPD) Substance Use: No Allergies-Medications (Allergen,Severity, Reaction): Coded Allergies: lisinopril (Unverified Allergy, Severe, Angioedema, 05/13/17) *MDRO Multi-Drug Resistant Organism (Verified Adverse Reaction, Unknown, MRSA, 11/30/16) MRSA (arm)-08/21/16 MRSA (chest) 11/27/16 Comments List of his allergies reviewed from the nursing note. Reported Meds & Prescriptions Reported Meds & Active Scripts Active Prednisone 20 Mg Tab 20 Mg PO BID 5 Days Ventolin Hfa 18 GM Inh (Albuterol Sulfate) 90 Mcg/Act Aer 2 Puff INH Q4-6H PRN Reported [synthroid] Narrative Medication List of his home medications reviewed from the nursing note. Review of Systems Except as stated in HPI: all other systems reviewed are Neg Respiratory: Positive: Shortness of Breath Physical Exam Narrative GENERAL: Awake, alert, moderate distress SKIN: Focused skin assessment warm/dry. Diffuse psoriasis HEAD: Atraumatic. Normocephalic. EYES: Pupils equal and round. No scleral icterus. No injection or drainage. ENT: No nasal bleeding or discharge. Mucous membranes pink and moist. NECK: Trachea midline. No JVD. CARDIOVASCULAR: Regular rate and rhythm. No murmur appreciated. RESPIRATORY: Decreased air entry bilaterally with end expiratory wheeze GASTROINTESTINAL: Abdomen soft, non-tender, nondistended. Hepatic and splenic margins not palpable. MUSCULOSKELETAL: No obvious deformities. No clubbing. No cyanosis. No edema. NEUROLOGICAL: Awake and alert. No obvious cranial nerve deficits. Motor grossly within normal limits. Normal speech. PSYCHIATRIC: Appropriate mood and affect; insight and judgment normal. Data Data Last Documented VS Vital Signs Date Time Temp Pulse Resp B/P (MAP) Pulse Ox O2 Delivery O2 Flow Rate FiO2 05/13/17 13:42 95 20 139/87 (104) 95 05/13/17 11:53 Room Air 05/13/17 09:58 98.4 Orders Orders Complete Blood Count With Diff (05/13/17 10:59) Basic Metabolic Panel (Bmp) (05/13/17 10:59) B-Type Natriuretic Peptide (05/13/17 10:59) Prothrombin Time / Inr (Pt) (05/13/17 10:59) Troponin I (05/13/17 10:59) Iv Access Insert/Monitor (05/13/17 10:59) Electrocardiogram (05/13/17 10:59) Ecg Monitoring (05/13/17 10:59) Oximetry (05/13/17 10:59) Oxygen Administration (05/13/17 10:59) Chest, Single Ap (05/13/17 10:59) Sodium Chloride 0.9% Flush (Ns Flush) (05/13/17 11:00) Methylprednisolone So Succ Inj (Solumedr (05/13/17 11:00) Albuterol-Ipratropium Neb (Duoneb Neb) (05/13/17 11:00) Ed Discharge Order (05/13/17 12:33) Albuterol Neb (Albuterol Neb) (05/13/17 13:00) Labs Laboratory Tests Test 05/13/17 11:20 White Blood Count 4.3 TH/MM3 Red Blood Count 3.87 MIL/MM3 Hemoglobin 13.0 GM/DL Hematocrit 37.2 % Mean Corpuscular Volume 96.0 FL Mean Corpuscular Hemoglobin 33.6 PG Mean Corpuscular Hemoglobin Concent 35.0 % Red Cell Distribution Width 15.1 % Platelet Count 178 TH/MM3 Mean Platelet Volume 6.2 FL Neutrophils (%) (Auto) 64.0 % Lymphocytes (%) (Auto) 19.2 % Monocytes (%) (Auto) 14.6 % Eosinophils (%) (Auto) 1.7 % Basophils (%) (Auto) 0.5 % Neutrophils # (Auto) 2.8 TH/MM3 Lymphocytes # (Auto) 0.8 TH/MM3 Monocytes # (Auto) 0.6 TH/MM3 Eosinophils # (Auto) 0.1 TH/MM3 Basophils # (Auto) 0.0 TH/MM3 CBC Comment AUTO DIFF Differential Comment AUTO DIFF CONFIRMED Platelet Estimate NORMAL Platelet Morphology Comment NORMAL Red Cell Morphology Comment NORMAL Prothrombin Time 11.8 SEC Prothromb Time International Ratio 1.2 RATIO Blood Urea Nitrogen 8 MG/DL Creatinine 0.87 MG/DL Random Glucose 83 MG/DL Calcium Level 8.8 MG/DL Sodium Level 138 MEQ/L Potassium Level 4.1 MEQ/L Chloride Level 103 MEQ/L Carbon Dioxide Level 25.5 MEQ/L Anion Gap 10 MEQ/L Estimat Glomerular Filtration Rate 91 ML/MIN Troponin I LESS THAN 0.02 NG/ML B-Type Natriuretic Peptide 16 PG/ML MDM Medical Decision Making Medical Screen Exam Complete: Yes Emergency Medical Condition: Yes Medical Record Reviewed: Yes Interpretation(s) Twelve-lead EKG was reviewed by me. Normal sinus rhythm, normal axis, nonspecific ST-T wave changes. Heart rate of 92 bpm. Differential Diagnosis Acute COPD exacerbation, CHF, pneumonia Narrative Course 12:38 PM patient was given 3 duo nebs and IV Solu-Medrol. I went back and reassessed him and there entry has significantly improved. Patient says he's coughing now but he can breathe easily. I am comfortable discharging him home on inhalers and prescription for steroid. I have advised him to quit smoking. Procedures EKG Prior to Arrival: No Diagnosis Primary Impression: Acute exacerbation of COPD with asthma Additional Impression: Needs smoking cessation education Referrals: Primary Care Physician Additional Instructions: Please take the medications as per the prescription direction. Return to the ER if the condition worsens or any other new concerns. Otherwise follow-up with your primary care. Quit smoking otherwise it's coming to condition worse. Med/Other Pt SpecificInfo: Prescription(s) given Scripts Prednisone (Prednisone) 20 Mg Tab 20 MG PO BID for 5 Days, #10 TAB 0 Refills Prov: Oziel Bower MD 05/13/17 Albuterol 18 GM Inh (Ventolin Hfa 18 GM Inh) 90 Mcg/Act Aer 2 PUFF INH Q4-6H Y for SHORTNESS OF BREATH, #1 INHALER 0 Refills Prov: Oziel Bower MD 05/13/17 Disposition: 01 DISCHARGE HOME Condition: Stable Oziel Bower MD May 13, 2017 10:05
[2017-05-13] MEDS ORDERED: SODIUM CHLORIDE 0.9% FLUSH 10 ML FLUSH IVF PRN (11:00)
[2017-05-13] MEDS ORDERED: methylPREDNISolone SOD SUCC 125 MG/2 ML VIAL IV PUSH ONE (11:00)
[2017-05-13] MEDS: RESP: ALBUTEROL 2.5 MG/IPRATROPIUM 0.5 MG NEB (SCH) INH ×2 (11:00→11:15)
--- NOTE | 2017-05-13 11:34 | RADRPT ---
EXAM DATE/TIME: 05/13/2017 11:11 [facility] COMPARISON: CHEST SINGLE AP, November 27, 2016, 20:05. INDICATIONS : Short of breath. MEDICAL HISTORY : Pancreatitis. Hepatitis C. SURGICAL HISTORY : None. ENCOUNTER: Initial ACUITY: 1 day PAIN SCORE: 0/10 LOCATION: Bilateral chest FINDINGS: A single view of the chest demonstrates the lungs to be symmetrically aerated without evidence of mas s, infiltrate or effusion. The cardiomediastinal contours are unremarkable. Osseous structures are intact. CONCLUSION: No acute disease. Miguel Guadarrama MD FACR on May 13, 2017 at 11:32 Board Certified Radiologist. This report was verified electronically.
[2017-05-13 11:36] LABS: AUTOMATED NEUTROPHIL # 2.8 TH/MM3 (1.8-7.7); BASOPHIL % 0.5 % (0.0-2.0); EOSINOPHIL # 0.1 TH/MM3 (0-0.4); EOSINOPHIL % 1.7 % (0.0-4.0); HEMATOCRIT 37.2 % (39.0-51.0); LYMPH % 19.2 % (9.0-44.0); LYMPHOCYTE # 0.8 TH/MM3 (1.0-4.8); MEAN CORPUSCULAR HEMOGLOBIN 33.6 PG (27.0-34.0); MEAN PLATELET VOLUME 6.2 FL (7.0-11.0); MONO % 14.6 % (0.0-8.0); MONOCYTE # 0.6 TH/MM3 (0-0.9); PLATELET COUNT 178 TH/MM3 (150-450); RED BLOOD COUNT 3.87 MIL/MM3 (4.50-5.90); RED CELL DISTRIBUTION WIDTH 15.1 % (11.6-17.2); WHITE BLOOD COUNT 4.3 TH/MM3 (4.0-11.0)
[2017-05-13 11:44] LABS: INTERNATIONAL NORMALIZED RATIO 1.2 RATIO; PROTHROMBIN TIME - PATIENT 11.8 SEC (9.8-11.6)
[2017-05-13 11:51] LABS: BICARBONATE 25.5 MEQ/L (21.0-32.0); BLOOD UREA NITROGEN 8 MG/DL (7-18); CALCIUM 8.8 MG/DL (8.5-10.1); CHLORIDE 103 MEQ/L (98-107); CREATININE 0.87 MG/DL (0.60-1.30); GLOMERULAR FILTRATION RATE 91 ML/MIN (>89); GLUCOSE,RANDOM 83 MG/DL (74-106); SODIUM (NA) 138 MEQ/L (136-145)
[2017-05-13 11:53] VITALS: BP 126/84; PULSE 108; RESP 16; O2SAT 98
[2017-05-13 11:54] LABS: TROPONIN I LESS THAN 0.02 NG/ML (0.02-0.05)
[2017-05-13] MEDS ORDERED: PRED20 PO (12:33)
[2017-05-13] MEDS ORDERED: VENTAER INH (12:33)
[2017-05-13] MEDS: RESP: ALBUTEROL 2.5 MG/3 ML NEB (SCH) INH ×2 (13:00→13:15)
[2017-05-13 13:42] VITALS: BP 139/87
--- NOTE | 2017-05-13 18:58 | EKG ---
Date Performed: 05/13/2017 Time Performed: 11:43:46 PTAGE: 57 years EKG: Sinus rhythm NORMAL ECG PREVIOUS TRACING : 11/27/2016 20.35 Compared to prior tracing no significant change DOCTOR: Irma Perez Interpretating Date/Time 05/13/2017 18:58:18
== END 2017-05-13 13:54 | disposition home or self-care (01) ==
LOC: NEPE 09:56
DX: J44.1 Chronic obstructive pulmonary disease with (acute) exacerbation (principal); F17.200 Nicotine dependence, unspecified, uncomplicated; Z86.19 Personal history of other infectious and parasitic diseases; Z87.19 Personal history of other diseases of the digestive system; Z79.51 Long term (current) use of inhaled steroids; Z79.899 Other long term (current) drug therapy; Z88.8 Allergy status to other drugs, medicaments and biological substances
CPT/HCPCS: 71045; 80048; 83880; 84484; 85025; 85610; 93005; 94640; 94664; 96374; 99285; J2930; J7613

== ENCOUNTER 2017-08-24 23:10 | Emergency (ER) | payer SELFPAY ==
[~2017-08-24] VITALS: Ht 180.3 cm; Wt 75.0 kg
[~2017-08-24 23:10] MED LIST changes: +PRED20 PO; +VENTAER INH
[2017-08-24 23:17] VITALS: BP 146/79; PULSE 98; RESP 24; TEMP 98.3; O2SAT 98
[2017-08-24] MEDS ORDERED: ONDANSETRON HCL 4 MG/2 ML VIAL IVP ONE (23:30)
[2017-08-24] MEDS ORDERED: ATROPINE/SCOPOLAM/HYOSCYAM/PB ELIXIR 10 ML CUP PO ONE (23:30)
[2017-08-24] MEDS ORDERED: ALUMINUM/MAGNESIUM/SIMETH 30 ML CUP PO ONE (23:30)
[2017-08-24] MEDS ORDERED: PANTOPRAZOLE SODIUM 40 MG VIAL IVP ONE (23:30)
[2017-08-24] MEDS ORDERED: SODIUM CHLORIDE 0.9% FLUSH 10 ML FLUSH IV FLUSH PRN (23:30)
[2017-08-24] MEDS ORDERED: KETOROLAC TROMETHAMINE 30 MG/ML (IVP) VIAL IVP ONE (23:30)
--- NOTE | 2017-08-24 23:30 | PD ---
HPI Chief Complaint: Chest Pain Time Seen by Provider: 23:18 Travel History International Travel<30 days: No Contact w/Intl Traveler<30days: No Traveled to known affect area: No History of Present Illness HPI 57-year-old male complains of chest pain. Patient states that the pain started about half an hour prior to arrival. Patient states that he was drinking at the bar when the pain started. Patient states the pain is severe substernally without radiation. Patient denies palpitation nausea diaphoresis. Patient denies any vomiting. Patient denies any coughing congestion. Patient denies any fever chills. EMS was called. Patient was brought to the ED for evaluation. Patient denies any history of CAD. Patient denies history hypertension, diabetes, hyperlipidemia. Patient is a smoker. Patient denies family history of heart disease. On a scale of 1-10 the pain is a 10. Patient has history of alcohol abuse, pancreatitis, duodenitis. PFSH Past Medical History Hx Anticoagulant Therapy: No Cancer: No Cardiovascular Problems: No Chemotherapy: No Cerebrovascular Accident: No Diabetes: No Diminished Hearing: Yes ([place]) Endocrine: Yes Gastrointestinal Disorders: Yes Genitourinary: No Hepatitis: Yes (C) Musculoskeletal: No Neurologic: No Psychiatric: No Pancreatitis: Yes Seizures: No Thyroid Disease: Yes Tetanus Vaccination: Unknown Past Surgical History Genitourinary Surgery: Yes (VASECTOMY) Other Surgery: Yes (SINUS SURGERY) Social History Alcohol Use: Yes (DAILY) Tobacco Use: Yes (1PPD) Substance Use: No Allergies-Medications (Allergen,Severity, Reaction): Coded Allergies: lisinopril (Unverified Allergy, Severe, Angioedema, 05/13/17) *MDRO Multi-Drug Resistant Organism (Verified Adverse Reaction, Unknown, MRSA, 11/30/16) MRSA (arm)-08/21/16 MRSA (chest) 11/27/16 Reported Meds & Prescriptions Reported Meds & Active Scripts Active Prednisone 20 Mg Tab 20 Mg PO BID 5 Days Ventolin Hfa 18 GM Inh (Albuterol Sulfate) 90 Mcg/Act Aer 2 Puff INH Q4-6H PRN Reported [synthroid] Review of Systems General / Constitutional: No: Fever Eyes: No: Visual changes HENT: No: Headaches Cardiovascular: Positive: Chest Pain or Discomfort Respiratory: No: Shortness of Breath Gastrointestinal: No: Abdominal Pain Genitourinary: No: Dysuria Musculoskeletal: No: Pain Skin: No Rash Neurologic: No: Weakness Psychiatric: No: Depression Endocrine: No: Polydipsia Hematologic/Lymphatic: No: Easy Bruising Physical Exam Narrative GENERAL: Well-nourished, well-developed patient. SKIN: Focused skin assessment warm/dry. HEAD: Normocephalic. EYES: No scleral icterus. No injection or drainage. NECK: Supple, trachea midline. No JVD or lymphadenopathy. CARDIOVASCULAR: Regular rate and rhythm without murmurs, gallops, or rubs. RESPIRATORY: Breath sounds equal bilaterally. No accessory muscle use. GASTROINTESTINAL: Abdomen soft, non-tender, nondistended. MUSCULOSKELETAL: No cyanosis, or edema. BACK: Nontender without obvious deformity. No CVA tenderness. Neurologic exam normal. Data Data Last Documented VS Vital Signs Date Time Temp Pulse Resp B/P (MAP) Pulse Ox O2 Delivery O2 Flow Rate FiO2 08/24/17 23:17 98.3 98 24 146/79 (101) 98 Orders Orders Electrocardiogram (08/24/17 23:21) Complete Blood Count With Diff (08/24/17 23:21) Comprehensive Metabolic Panel (08/24/17 23:21) Creatine Kinase (Cpk) (08/24/17 23:21) Troponin I (08/24/17 23:21) Prothrombin Time / Inr (Pt) (08/24/17 23:21) Act Partial Throm Time (Ptt) (08/24/17 23:21) Lipase (08/24/17 23:21) D-Dimer (08/24/17 23:21) Chest, Single Ap (08/24/17 23:21) Iv Access Insert/Monitor (08/24/17 23:21) Ecg Monitoring (08/24/17 23:21) Oximetry (08/24/17 23:21) Drug Screen, Random Urine (08/24/17 23:21) Alcohol (Ethanol) (08/24/17 23:21) Sodium Chlor 0.9% 1000 Ml Inj (Ns 1000 M (08/24/17 23:30) Ondansetron Inj (Zofran Inj) (08/24/17 23:30) Pantoprazole Inj (Protonix Inj) (08/24/17 23:30) Sodium Chloride 0.9% Flush (Ns Flush) (08/24/17 23:30) Ketorolac Inj (Toradol Inj) (08/24/17 23:30) Al-Mag Hy-Si 40-40-4 Mg/Ml Liq (Mag-Al P (08/24/17 23:30) Obces-Dxmdif-Bgysjx-Pb Liq ( Liq (08/24/17 23:30) Labs Laboratory Tests Test 08/24/17 23:20 08/25/17 00:45 White Blood Count 4.0 TH/MM3 Red Blood Count 3.65 MIL/MM3 Hemoglobin 12.4 GM/DL Hematocrit 34.2 % Mean Corpuscular Volume 93.7 FL Mean Corpuscular Hemoglobin 34.0 PG Mean Corpuscular Hemoglobin Concent 36.3 % Red Cell Distribution Width 14.6 % Platelet Count 141 TH/MM3 Mean Platelet Volume 6.3 FL Neutrophils (%) (Auto) 46.5 % Lymphocytes (%) (Auto) 31.8 % Monocytes (%) (Auto) 15.4 % Eosinophils (%) (Auto) 2.4 % Basophils (%) (Auto) 3.9 % Neutrophils # (Auto) 1.9 TH/MM3 Lymphocytes # (Auto) 1.3 TH/MM3 Monocytes # (Auto) 0.6 TH/MM3 Eosinophils # (Auto) 0.1 TH/MM3 Basophils # (Auto) 0.2 TH/MM3 CBC Comment DIFF FINAL Differential Comment Prothrombin Time 12.3 SEC Prothromb Time International Ratio 1.2 RATIO Activated Partial Thromboplast Time 25.1 SEC D-Dimer Quantitative (PE/DVT) 0.47 MG/L FEU Blood Urea Nitrogen 10 MG/DL Creatinine 0.91 MG/DL Random Glucose 91 MG/DL Total Protein 7.9 GM/DL Albumin 3.4 GM/DL Calcium Level 8.4 MG/DL Alkaline Phosphatase 69 U/L Aspartate Amino Transf (AST/SGOT) 147 U/L Alanine Aminotransferase (ALT/SGPT) 110 U/L Total Bilirubin 0.4 MG/DL Sodium Level 138 MEQ/L Potassium Level 3.6 MEQ/L Chloride Level 104 MEQ/L Carbon Dioxide Level 23.5 MEQ/L Anion Gap 11 MEQ/L Estimat Glomerular Filtration Rate 86 ML/MIN Total Creatine Kinase 102 U/L Troponin I LESS THAN 0.02 NG/ML Lipase 513 U/L Ethyl Alcohol Level 416 MG/DL Urine Opiates Screen NEG Urine Barbiturates Screen NEG Urine Amphetamines Screen NEG Urine Benzodiazepines Screen NEG Urine Cocaine Screen NEG Urine Cannabinoids Screen NEG MDM Medical Decision Making Medical Screen Exam Complete: Yes Emergency Medical Condition: Yes Interpretation(s) EKG shows sinus rhythm nonspecific ST-T wave change. Early repolarization. 1:47 AM. Chest x-ray shows no acute pathology. CBC WBC 4.0. Hemoglobin 12.5 hematocrit 34.2. Platelet 141. Calcium 8.4. AST 147. ALT 110. Cardiac enzymes are normal. Lipase 513. Alcohol for 16. Urine drug screen negative. Differential Diagnosis Differential diagnosis including musculoskeletal, esophageal spasm, esophagitis , angina, [place], PE, pneumothorax, gastritis, duodenitis, pancreatitis, aortic dissection. Narrative Course 57-year-old male with severe substernal chest pain. History of alcohol abuse. Protonix 40 mg IV. Maalox 30 cc p.o. 10 cc p.o. Diagnosis Primary Impression: Atypical chest pain Additional Impression: Pancreatitis Qualified Codes: K85.20 - Alcohol induced acute pancreatitis without necrosis or infection Danny Babcock MD Aug 24, 2017 23:30
[2017-08-24] MEDS: SODIUM CHLOR 0.9% 1000 ML INJ 1,000 ML IV SCH (23:35)
[2017-08-24 23:50] LABS: AUTOMATED NEUTROPHIL # 1.9 TH/MM3 (1.8-7.7); BASOPHIL # 0.2 TH/MM3 (0-0.2); BASOPHIL % 3.9 % (0.0-2.0); EOSINOPHIL # 0.1 TH/MM3 (0-0.4); EOSINOPHIL % 2.4 % (0.0-4.0); HEMATOCRIT 34.2 % (39.0-51.0); HEMOGLOBIN 12.4 GM/DL (13.0-17.0); LYMPH % 31.8 % (9.0-44.0); LYMPHOCYTE # 1.3 TH/MM3 (1.0-4.8); MEAN CELL VOLUME 93.7 FL (80.0-100.0); MEAN PLATELET VOLUME 6.3 FL (7.0-11.0); MONO % 15.4 % (0.0-8.0); MONOCYTE # 0.6 TH/MM3 (0-0.9); NEUT % 46.5 % (16.0-70.0); PLATELET COUNT 141 TH/MM3 (150-450); RED BLOOD COUNT 3.65 MIL/MM3 (4.50-5.90); RED CELL DISTRIBUTION WIDTH 14.6 % (11.6-17.2)
[2017-08-24 23:55] LABS: MEAN CORPUSCULAR HGB CONC 36.3 % (32.0-36.0)
[2017-08-25 00:03] LABS: INTERNATIONAL NORMALIZED RATIO 1.2 RATIO; PROTHROMBIN TIME - PATIENT 12.3 SEC (9.8-11.6)
[2017-08-25 00:07] LABS: ALBUMIN 3.4 GM/DL (3.4-5.0); AST (GOT) 147 U/L (15-37); BICARBONATE 23.5 MEQ/L (21.0-32.0); BLOOD UREA NITROGEN 10 MG/DL (7-18); CALCIUM 8.4 MG/DL (8.5-10.1); CHLORIDE 104 MEQ/L (98-107); CREATININE 0.91 MG/DL (0.60-1.30); GLOMERULAR FILTRATION RATE 86 ML/MIN (>89); GLUCOSE,RANDOM 91 MG/DL (74-106); SODIUM (NA) 138 MEQ/L (136-145)
[2017-08-25 00:08] LABS: ALT (GPT) 110 U/L (12-78)
[2017-08-25 00:09] LABS: D-DIMER 0.47 MG/L FEU (0.00-0.50)
[2017-08-25 00:12] LABS: ALKALINE PHOSPHATASE 69 U/L (45-117); TOTAL BILIRUBIN ADULT 0.4 MG/DL (0.2-1.0); TOTAL PROTEIN 7.9 GM/DL (6.4-8.2); TROPONIN I LESS THAN 0.02 NG/ML (0.02-0.05)
--- NOTE | 2017-08-25 00:12 | RADRPT ---
EXAM DATE/TIME: 08/24/2017 23:45 [facility] COMPARISON: CHEST SINGLE AP, May 13, 2017, 11:11. INDICATIONS : Chest pain. MEDICAL HISTORY : Pancreatitis. Hepatitis C. SURGICAL HISTORY : None. ENCOUNTER: Initial ACUITY: 1 day PAIN SCORE: 10/10 LOCATION: Bilateral chest FINDINGS: A single view of the chest demonstrates the lungs to be symmetrically aerated without evidence of mas s, infiltrate or effusion. The cardiomediastinal contours are unremarkable. Osseous structures are intact. CONCLUSION: Normal examination. Kali Lala Jr., MD on August 25, 2017 at 0:10 Board Certified Radiologist. This report was verified electronically.
[2017-08-25 07:08] VITALS: BP 123/79; PULSE 87; RESP 17; TEMP 98.3
[2017-08-25] MEDS: SODIUM CHLOR 0.9% 1000 ML INJ 1,000 ML IV SCH (07:27)
[2017-08-25 09:28] VITALS: BP 120/76; PULSE 89; RESP 18; TEMP 97.8; O2SAT 99
--- NOTE | 2017-08-25 11:12 | PD ---
Data Data Last Documented VS Vital Signs Date Time Temp Pulse Resp B/P (MAP) Pulse Ox O2 Delivery O2 Flow Rate FiO2 08/25/17 11:20 97.9 78 17 124/83 (97) 99 08/25/17 09:28 Room Air Orders Orders Electrocardiogram (08/24/17 23:21) Complete Blood Count With Diff (08/24/17 23:21) Comprehensive Metabolic Panel (08/24/17 23:21) Creatine Kinase (Cpk) (08/24/17 23:21) Troponin I (08/24/17 23:21) Prothrombin Time / Inr (Pt) (08/24/17 23:21) Act Partial Throm Time (Ptt) (08/24/17 23:21) Lipase (08/24/17 23:21) D-Dimer (08/24/17 23:21) Chest, Single Ap (08/24/17 23:21) Iv Access Insert/Monitor (08/24/17 23:21) Ecg Monitoring (08/24/17 23:21) Oximetry (08/24/17 23:21) Drug Screen, Random Urine (08/24/17 23:21) Alcohol (Ethanol) (08/24/17 23:21) Sodium Chlor 0.9% 1000 Ml Inj (Ns 1000 M (08/24/17 23:30) Ondansetron Inj (Zofran Inj) (08/24/17 23:30) Pantoprazole Inj (Protonix Inj) (08/24/17 23:30) Sodium Chloride 0.9% Flush (Ns Flush) (08/24/17 23:30) Ketorolac Inj (Toradol Inj) (08/24/17 23:30) Al-Mag Hy-Si 40-40-4 Mg/Ml Liq (Mag-Al P (08/24/17 23:30) Zmzvs-Gpxfic-Tiujkf-Pb Liq ( Liq (08/24/17 23:30) Ed Discharge Order (08/25/17 11:12) Labs Laboratory Tests Test 08/24/17 23:20 08/25/17 00:45 White Blood Count 4.0 TH/MM3 Red Blood Count 3.65 MIL/MM3 Hemoglobin 12.4 GM/DL Hematocrit 34.2 % Mean Corpuscular Volume 93.7 FL Mean Corpuscular Hemoglobin 34.0 PG Mean Corpuscular Hemoglobin Concent 36.3 % Red Cell Distribution Width 14.6 % Platelet Count 141 TH/MM3 Mean Platelet Volume 6.3 FL Neutrophils (%) (Auto) 46.5 % Lymphocytes (%) (Auto) 31.8 % Monocytes (%) (Auto) 15.4 % Eosinophils (%) (Auto) 2.4 % Basophils (%) (Auto) 3.9 % Neutrophils # (Auto) 1.9 TH/MM3 Lymphocytes # (Auto) 1.3 TH/MM3 Monocytes # (Auto) 0.6 TH/MM3 Eosinophils # (Auto) 0.1 TH/MM3 Basophils # (Auto) 0.2 TH/MM3 CBC Comment DIFF FINAL Differential Comment Prothrombin Time 12.3 SEC Prothromb Time International Ratio 1.2 RATIO Activated Partial Thromboplast Time 25.1 SEC D-Dimer Quantitative (PE/DVT) 0.47 MG/L FEU Blood Urea Nitrogen 10 MG/DL Creatinine 0.91 MG/DL Random Glucose 91 MG/DL Total Protein 7.9 GM/DL Albumin 3.4 GM/DL Calcium Level 8.4 MG/DL Alkaline Phosphatase 69 U/L Aspartate Amino Transf (AST/SGOT) 147 U/L Alanine Aminotransferase (ALT/SGPT) 110 U/L Total Bilirubin 0.4 MG/DL Sodium Level 138 MEQ/L Potassium Level 3.6 MEQ/L Chloride Level 104 MEQ/L Carbon Dioxide Level 23.5 MEQ/L Anion Gap 11 MEQ/L Estimat Glomerular Filtration Rate 86 ML/MIN Total Creatine Kinase 102 U/L Troponin I LESS THAN 0.02 NG/ML Lipase 513 U/L Ethyl Alcohol Level 416 MG/DL Urine Opiates Screen NEG Urine Barbiturates Screen NEG Urine Amphetamines Screen NEG Urine Benzodiazepines Screen NEG Urine Cocaine Screen NEG Urine Cannabinoids Screen NEG [facility] Supervised Visit with MICHELLE: Yes Narrative Course Patient CARE assume from Dr. Babcock at , this is a 57-year-old male presented intoxicated with complaints of chest pain, mild elevation in his lipase. He has been given almost 12 hours to sleep off his alcohol in the emergency department. On my reassessment he is clinically sober, is tolerated food, he has no complaints at this time. Stable for discharge, discussed the dangers of alcohol and smoking and need for cessation of both, discussed follow- up with primary care physician or the [facility]. Diagnosis Primary Impression: Atypical chest pain Additional Impression: Pancreatitis Qualified Codes: K85.20 - Alcohol induced acute pancreatitis without necrosis or infection Disposition: 01 DISCHARGE HOME Condition: Stable Igor Siddiqui MD Aug 25, 2017 11:12
[2017-08-25 11:20] VITALS: BP 124/83; TEMP 97.9
--- NOTE | 2017-08-26 00:20 | EKG ---
Date Performed: 08/24/2017 Time Performed: 23:13:20 PTAGE: 57 years EKG: Sinus rhythm ST ELEVATION, PROBABLY EARLY REPOLARIZATION NON-SPECIFIC ST/T WAVE CHANGES BORDERLINE ECG PREVIOUS TRACING : 05/13/2017 11.43 Compared to previous tracing, ST/T waves inferiorly more p rominent now DOCTOR: Carlos Mims Interpretating Date/Time 08/26/2017 00:19:44
== END 2017-08-25 11:20 | disposition home or self-care (01) ==
LOC: NEPC 23:10
DX: R07.89 Other chest pain (principal); K85.90 Acute pancreatitis without necrosis or infection, unspecified; F10.129 Alcohol abuse with intoxication, unspecified; Y90.8 Blood alcohol level of 240 mg/100 ml or more; R94.31 Abnormal electrocardiogram [ECG] [EKG]; H91.90 Unspecified hearing loss, unspecified ear; F17.210 Nicotine dependence, cigarettes, uncomplicated
CPT/HCPCS: 71045; 80053; 80307; 82550; 83690; 84484; 85025; 85379; 85610; 85730; 93005; 96361; 96374; 96375; 99284; C9113; J1885; J2405; J7030